=== PATIENT | male | born 1975 | race Caucasian/White ===

== ENCOUNTER 2023-12-07 12:30 | Inpatient (IN) ==
[2023-12-07] MEDS ORDERED: MoRPHine SULFATE 4 MG/ML 1 ML CARP\\VIAL IV PRN (12:45)
[2023-12-07 12:54] LABS: Basophils # (auto) 0.04 K/uL (0.00-0.20); Basophils % (auto) 0.4 %; Eosinophils # (auto) 0.26 K/uL (0.00-0.50); Eosinophils % (auto) 2.9 %; Hematocrit (blood only) 49.8 % (42.0-52.0); Immature Granulocytes # (auto) 0.04 K/uL (0.01-0.20); Immature Granulocytes % (auto) 0.4 %; Mean Corpuscular Hemoglobin 27.5 pg (25.0-34.0); Mean Corpuscular Hgb Conc 34.1 g/dL (32.0-36.0); Mean Corpuscular Volume 80.5 fL (80.0-100.0); Mean Platelet Volume 9.8 fL (9.4-12.4); Monocytes # (auto) 0.79 K/uL (0.11-0.59); Monocytes % (auto) 8.9 %; Neutrophils # (auto) 5.36 K/uL (1.40-6.50); Neutrophils % (auto) 60.4 %; Platelet Count 237 K/uL (130-400); RDW Coefficient of Variation 13.8 % (11.5-14.5); RDW Standard Deviation 39.2 fL (36.4-46.3); Red Blood Count 6.19 M/uL (4.70-6.10); White Blood Count 8.89 K/ul (4.8-10.8)
[2023-12-07] MEDS: dexAMETHasone**PF** 10 MG/ML VIAL IV ONE (12:55)
[2023-12-07] MEDS: LORazepam 1 MG/1 ML SYR ED Inj Use IV STA (12:55)
[2023-12-07] MEDS: SODIUM CHLORIDE 0.9% 500 ML IV STA (12:56)
[2023-12-07] MEDS: KETOROLAC TROMETHAMINE 15 MG/ML VIAL IV STA (12:56)
[2023-12-07] MEDS: ONDANSETRON INJ 2 MG/ML 2 ML VIAL IV STA (12:56)
--- NOTE | 2023-12-07 13:15 | Emergency Department Note ---
Impression & Plan Acute lumbar radiculopathy, Herniated lumbar intervertebral disc ED Provider Note NAME: CORONA BRYANT AGE: 48 SEX: M : 1975 ARRIVES VIA: Ambulance INFORMANT: Patient, ED PROVIDER(S): Alexey Parkinson DO CHIEF COMPLAINT: Back pain HPI: The patient is a 48-year-old male who presented to the emergency department by ambulance for an evaluation of back pain. The patient noticed low back pain which began over the course the last week. He states the pain is starting to become much worse and now seems to radiate to his right leg. He was in our facility yesterday for similar complaints. He had a CAT scan of his lumbar spine. The patient was started on medications but seems to be worsening. He has been seen by chiropractics. He has not been able to get an appointment by his family doctor and they are quite frustrated. Additional history was obtained from his significant other. The patient denies having any specific trauma. He denies having any bowel or bladder incontinence. ROS: See above HPI for pertinent positives & negatives. A total of 10 systems reviewed and were otherwise negative. PAST MEDICAL HISTORY: See Below PAST SURGICAL HISTORY: See Below FAMILY HISTORY: See Below SOCIAL HISTORY: See Below HOME MEDICATIONS: See Below ALLERGIES: See Below VITALS: See Below PHYSICAL EXAMINATION: GENERAL: The patient is awake and alert. He is very anxious and appears to be uncomfortable. EYES: The conjunctivae are clear. The pupils are round and reactive. EARS, NOSE, MOUTH AND THROAT: The nose is without any evidence of any deformity. NECK: The neck is nontender and supple. RESPIRATORY: Normal respiratory effort is noted there is no evidence of wheezing rhonchi or rales CARDIOVASCULAR: Regular rate and rhythm noted there no murmurs rubs or gallops normal S1 normal S2. GASTROINTESTINAL: The abdomen is soft. Abdomen is nontender. BACK: There is significant tenderness to palpation over the lower lumbar spine. Range of motion appears intact but severely painful. Straight leg raise was positive on the right. MUSCULOSKELETAL/EXTREMITIES: There is no evidence of gross deformity full range of motion is noted in the hips and shoulders. SKIN: There is no obvious evidence of any rash. There are no petechiae, pallor or cyanosis noted. NEUROLOGIC: Patient is awake alert and oriented x3 strength is symmetric patellar reflexes are 2+ bilaterally. Great toe raise was symmetric. MEDICAL DECISION MAKING: The patient is a 48-year-old male who presented to the emergency department for an evaluation of back pain. The patient's history and physical exam appear to be consistent with a herniated disc. I discussed patient's laboratory and radiographic studies with him. He was treated with IV pain medication and IV steroids and IV NSAIDs in the emergency department. On reevaluation he was much more comfortable but any ambulation would cause very severe pain. For this reason I discussed his condition with the on-call [facility] hospitalist. They have agreed to evaluate the patient in the emergency department. I also discussed this case with orthopedic spine. They would be available to see the patient tomorrow for routine consultation. Triage Nursing notes reviewed. Prior medical records reviewed Vital Signs: reviewed and remarkable for elevated blood pressure. Differential diagnosis: Musculoskeletal, disc herniation, fracture, metastatic disease, cord compression, discitis, sciatica, cauda equina, infection, aortic disease, renal colic, gastrointestinal, as well as other pathologies. ER treatment provided: See below Diagnostics interpreted by me: ECG: none Cardiac Monitoring: An order was placed for continuous cardiac monitoring. The monitor shows a rate of 97 bpm with sinus rhythm. Laboratory studies: As stated above and show below. Imaging studies: See below. Radiographic imaging was reviewed by myself Consultation(s): I discussed this case with Dr. [facility]ides [facility] I discussed this case with Dr. Hatfield who is on-call for orthopedic spine. Past Med/Surg History Medical History Nocturnal hypoxia Severe obstructive sleep apnea History of migraine Obesity Medial epicondylitis, left elbow Hypertension Surgical History Hx of wisdom tooth extraction Family History Father Myocardial infarction Stroke Denies family history of Ovarian cancer Prostate cancer Breast cancer Colorectal cancer Social History Smoking Status: Never smoker Tobacco Type: Smokeless Tobacco (Dip or Chew) Cigarettes Per Day: 1 can snuff daily; Do You Dip or Chew Tobacco: Yes; Hx Alcohol Use: No Hx Substance Use: No Preferred Language: Ivorian Communication Ability: Effective Visual Impairment: No Limitations Hearing Ability: Normal [place] Skinner Required: No Beliefs That Will Affect Care: None marital status: Current Living Situation: Family current occupational status: employed 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 How many Children do You have: 2 Feels Safe at Home: Yes Childhood Exposure to Second-Hand Smoke: No Diet: regular Diet Comment: regular caffeine: Yes during the past year weight has: remained stable Dental Care, Regularly: No Physical Activity Frequency: Daily Allergies Allergies Allergy/AdvReac Type Severity Reaction Status Date / Time No Known Allergies Allergy Verified 02/03/23 12:06 Home Meds Home Medications Medication Instructions Recorded Confirmed acetaminophen 500 mg tablet 1,500 mg PO Q6H PRN Pain 12/07/23 12/07/23 (Tylenol Extra Strength) naproxen sodium 220 mg tablet 660 mg PO .Q4-6HRS PRN Pain 12/07/23 12/07/23 (Aleve) Previous Rx's Medication Instructions Recorded losartan 100 mg tablet 50 mg (1/2 x 100 mg) PO BID #90 08/07/23 tabs BiPap Machine #1 ea 10/22/23 cyclobenzaprine 10 mg tablet 10 mg PO TID PRN muscle spasm #15 12/01/23 tabs lidocaine 5 % topical patch 1 patch topical DAILY #15 ea 12/01/23 (Lidoderm) Results & Data (ED) Vital Signs Vital Signs - 24 hr 12/07/23 12:38 12/07/23 15:17 12/07/23 15:17 Temperature 36.6 C Temperature Source Oral Pulse Rate 88 Pulse Rate [Finger] 99 H Pulse Rhythm [Finger] Respiratory Rate 22 22 Respiratory Effort / Characteristics Non-Labored Spontaneous Non-Labored Spontaneous Respiratory Depth Normal Normal Respiratory Pattern Regular Regular Blood Pressure 201/138 H Blood Pressure [Right Arm] 186/122 H Blood Pressure Mean 159 Blood Pressure Mean [Right Arm] 143 Blood Pressure Position [Right Arm] Lying Pulse Oximetry 98 96 96 Oxygen Delivery Method Room Air Room Air Room Air Sepsis Recent Fever Within 48 Hours No Sepsis New/Unexplained Change in Mental Status No Sepsis Action Taken by Nursing No Action Required 12/07/23 17:34 Temperature Temperature Source Pulse Rate Pulse Rate [Finger] 97 H Pulse Rhythm [Finger] Regular Respiratory Rate 22 Respiratory Effort / Characteristics Non-Labored Spontaneous Respiratory Depth Normal Respiratory Pattern Regular Blood Pressure Blood Pressure [Right Arm] 187/108 H Blood Pressure Mean Blood Pressure Mean [Right Arm] 134 Blood Pressure Position [Right Arm] Lying Pulse Oximetry 95 Oxygen Delivery Method Room Air Sepsis Recent Fever Within 48 Hours Sepsis New/Unexplained Change in Mental Status Sepsis Action Taken by Half-Way Medications Current Medication List: was personally reviewed by me Laboratory Data Attestation: I reviewed the patient's lab results. 12/07/23 12:40 12/07/23 12:40 Lab Results 12/07/23 Range/Units 12:40 WBC 8.89 (4.8-10.8) K/ul RBC 6.19 H (4.70-6.10) M/uL Hgb 17.0 (14.0-18.0) g/dl Hct 49.8 (42.0-52.0) % MCV 80.5 (80.0-100.0) fL MCH 27.5 (25.0-34.0) pg MCHC 34.1 (32.0-36.0) g/dL RDW Std Deviation 39.2 (36.4-46.3) fL RDW Coeff of Naheed 13.8 (11.5-14.5) % Plt Count 237 (130-400) K/uL MPV 9.8 (9.4-12.4) fL Immature Gran % (Auto) 0.4 % Neut % (Auto) 60.4 % Lymph % (Auto) 27.0 % Bath % (Auto) 8.9 % Eos % (Auto) 2.9 % Baso % (Auto) 0.4 % Neut # (Auto) 5.36 (1.40-6.50) K/uL Lymph # (Auto) 2.40 (1.20-3.40) K/uL Bath # (Auto) 0.79 H (0.11-0.59) K/uL Eos # (Auto) 0.26 (0.00-0.50) K/uL Baso # (Auto) 0.04 (0.00-0.20) K/uL Immature Gran # (Auto) 0.04 (0.01-0.20) K/uL Sodium 141 (136-145) mmol/L Potassium 4.2 (3.5-5.1) mmol/L Chloride 108 H (98-107) mmol/L Carbon Dioxide 26 (21-32) mmol/L Anion Gap 7 (3-11) BUN 25 H (6-23) mg/dl Creatinine 1.20 (0.6-1.4) mg/dl Est Cr Clr Drug Dosing 95.0 ml/min Est GFR ( Amer) 83.0 ml/min Est GFR (Non-Af Amer) 71.6 ml/min BUN/Creatinine Ratio 20.8 H (10-20) Glucose 90 (70-99(Fasting)) mg/dl Calcium 9.2 (8.6-10.3) mg/dl Total Bilirubin 0.9 (0.2-1.0) mg/dl AST 24 (13-39) U/L ALT 31 (7-52) U/L Alkaline Phosphatase 69 (34-104) U/L Total Protein 7.1 (6.0-8.3) gm/dl Albumin 4.2 (3.4-5.0) gm/dl Globulin 2.9 (2.5-4.0) gm/dl Albumin/Globulin Ratio 1.4 (0.9-2) Lipase 20 (11-82) U/L Administered Medications Discontinued Medications Dexamethasone Sodium Phosphate (DexamethasonePf 10 Mg/Ml Vial) 10 mg IV NOW ONE Stop: 12/07/23 12:46 Last Admin: 12/07/23 12:55 Dose: 10 mg Documented By: CRIS Sodium Chloride (Nss) 500 mls @ 999 mls/hr IV .Q31M STA Stop: 12/07/23 13:15 Last Infusion: 12/07/23 15:20 Dose: Infused Documented By: Admin: 12/07/23 12:56 Dose: 999 mls/hr Documented By: CRIS Ketorolac Tromethamine (Ketorolac Tromethamine 15 Mg/Ml Vial) 10 mg IV NOW STA Stop: 12/07/23 12:46 Last Admin: 12/07/23 12:56 Dose: Not Given Documented By: CRIS Lorazepam (Lorazepam 1 Mg/1 Ml Syr Ed Inj Use) 0.5 mg IV ONE STA Stop: 12/07/23 12:46 Last Admin: 12/07/23 12:55 Dose: 0.5 mg Documented By: CRIS Ondansetron HCl (Ondansetron Inj 2 Mg/Ml 2 Ml Vial) 4 mg IV NOW STA Stop: 12/07/23 12:46 Last Admin: 12/07/23 12:56 Dose: Not Given Documented By: CRIS Imaging Data Attestation: I personally reviewed and interpreted this imaging study as follows: My Impression: MRI of the lumbar spine was obtained in the emergency department. There does appear to be herniated disc on the right side and the L4-L5 interspace. Final report below. Radiologist's Impression: Lumbar Spine MRI 12/07/23 12:45 MR lumbar spine wo con CLINICAL HISTORY: right sided radicular pain TECHNIQUE: Multiplanar sequences through the lumbar spine were obtained, without intravenous contrast. Comparison: Comparison is made to CT lumbar spine 12/01/2023 FINDINGS: The alignment is anatomical. L1-L2: No significant abnormality. L2-L3: No significant abnormality. L3-L4: No significant abnormality. L4-L5: Right sided disc extrusion is seen. This measures approximately 7 mm in diameter. There is impingement on the exiting L5 nerve root. L5-S1: No significant abnormality. The spinal ligaments are intact, without evidence of disruption or abnormal signal intensity. The spinal cord is normal in signal intensity and there is no evidence of cord contusion. There is no evidence of an extradural, intradural, extramedullary or intramedullary lesion. Visualized soft tissues are normal. IMPRESSION: Right disc extrusion at L4-L5 with impingement upon the right-sided nerve roots. ACT 112: Negative or not required by law. Electronically signed by: Ravi Saenz M.D. 12/07/2023 2:50 PM Orbit X-Ray 12/07/23 12:45 XR orbits for MRI CLINICAL HISTORY: Screening for foreign body for MRI TECHNIQUE: AP and lateral views of the orbits were submitted for interpretation. Comparison: None available at the time of this dictation. FINDINGS/IMPRESSION: There are no radiopaque metallic foreign bodies. The osseous structures are unremarkable. Patient is cleared for MRI. ACT 112: Negative or not required by law. Electronically signed by: Ravi Saenz M.D. 12/07/2023 1:30 PM Discharge Plan Visit Data Chief Complaint: Back Injury/Pain Stated Complaint: BACK PAIN ED Provider: Alexey Parkinson Discharge Problem: Acute lumbar radiculopathy, Herniated lumbar intervertebral disc Patient Disposition: Being Evaluated by Hospitalist Forms Stand Alone Forms: [facility] Prescriptions Prescriptions: No Action (DME) BiPap Machine Misc See Rx Instructions .Route Qty: 1 0RF Rx Instructions: Settings- losartan 100 mg tablet 50 mg PO BID Qty: 90 2RF cyclobenzaprine 10 mg tablet 10 mg PO TID PRN (Reason: muscle spasm) Qty: 15 0RF lidocaine [Lidoderm] 5 % adhesive patch,medicated 1 patch topical DAILY Qty: 15 0RF Rx Instructions: leave on most painful area for up to 12 hrs acetaminophen [Tylenol Extra Strength] 500 mg Tablet 1,500 mg PO Q6H PRN (Reason: Pain) naproxen sodium [Aleve] 220 mg Tablet 660 mg PO .Q4-6HRS PRN (Reason: Pain) Referrals Referrals: Smooth Allen CRNP [Primary Care Provider] -
[2023-12-07 13:19] LABS: Albumin Globulin Ratio 1.4 (0.9-2); Albumin Level 4.2 gm/dl (3.4-5.0); BUN Creatinine Ratio 20.8 (10-20); Bilirubin,Total 0.9 mg/dl (0.2-1.0); Calcium 9.2 mg/dl (8.6-10.3); Est GFR (Non-African American) 71.6 ml/min; Globulin 2.9 gm/dl (2.5-4.0); Potassium 4.2 mmol/L (3.5-5.1); Total Protein 7.1 gm/dl (6.0-8.3)
--- NOTE | 2023-12-07 13:32 | XRay Report ---
XR orbits for MRI CLINICAL HISTORY: Screening for foreign body for MRI TECHNIQUE: AP and lateral views of the orbits were submitted for interpretation. Comparison: None available at the time of this dictation. FINDINGS/IMPRESSION: There are no radiopaque metallic foreign bodies. The osseous structures are unremarkable. Patient is cleared for MRI. ACT 112: Negative or not required by law. Electronically signed by: Ravi Saenz M.D. 12/07/2023 1:30 PM
--- NOTE | 2023-12-07 14:52 | Magnetic Resonance Report ---
MR lumbar spine wo con CLINICAL HISTORY: right sided radicular pain TECHNIQUE: Multiplanar sequences through the lumbar spine were obtained, without intravenous contrast . Comparison: Comparison is made to CT lumbar spine 12/01/2023 FINDINGS: The alignment is anatomical. L1-L2: No significant abnormality. L2-L3: No significant abnormality. L3-L4: No significant abnormality. L4-L5: Right sided disc extrusion is seen. This measures approximately 7 mm in diameter. There is imp ingement on the exiting L5 nerve root. L5-S1: No significant abnormality. The spinal ligaments are intact, without evidence of disruption or abnormal signal intensity. The spi nal cord is normal in signal intensity and there is no evidence of cord contusion. There is no eviden ce of an extradural, intradural, extramedullary or intramedullary lesion. Visualized soft tissues are normal. IMPRESSION: Right disc extrusion at L4-L5 with impingement upon the right-sided nerve roots. ACT 112: Negative or not required by law. Electronically signed by: Ravi Saenz M.D. 12/07/2023 2:50 PM
--- NOTE | 2023-12-07 16:43 | History & Physical Report ---
Date of Service December 07, 2023 Assessment & Plan (1) Acute lumbar radiculopathy: Plan: Sharp lower right back pain with radiation down the right leg that started on 11/23 Potential exacerbation by chiropractor on Monday 11/27 Came in on 12/06 as pain was excruciating and he couldn't walk or sit up Lumbar spine MRI on 12/06 revealed right disc extrusion at L4-L5 Ortho-spine consulted, appreciate their support Multimodal pain regimen: Tylenol as needed for pain Dilaudid IV q2h as needed for breakthrough pain Cyclobenzaprine as needed for muscle spasms Heat application daily with K-pad as needed Zofran as needed for nausea/vomiting A.m. CBC, BMP, mag (2) Severe obstructive sleep apnea: Plan: CPAP HS (3) Tobacco chew use: Plan: Nicotine patch daily as needed (4) Hypertension: Plan: Continue losartan daily Plan Disposition: Admit to [facility] Full code Regular diet VTE PPx: History of Present Illness Chief Complaint: Back injury/pain Primary Care Provider: AMITA Prasadfrancis is a 48-year-old male with PMH of HTN, severe obstructive sleep apnea, and migraines. He presented via EMS for right lower back pain that shoots down his right leg x 2 weeks. 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 He reports he did not do anything exceedingly strenuous, or anything abnormal for when he works on [employer]. He then went to see a chiropractor that Friday on 11/27, and w lionel up the following morning with even worse back pain; could not walk, could not stand, and all movements hurt. Back pain is located in his lower right back with radiation down the leg into the feet. No radiation of the back or on the left side. He describes it as a sharp stabbing pain, and rates it 10/10 at its worst; 2/10 at present without movements. Movement exacerbates the pain. Laying still, and bending his right leg helps to alleviate the pain. Associated symptoms include intermittent numbness and tingling in the right leg. Patient has been rotating Tylenol and Aleve every 5-6h, but this is not take with the pain. He did try menthol patch at home which helped. When he came to the ED on 11/30, he was given lidocaine patches and cyclobenzaprine, but neither these truly helped; cyclobenzaprine made him feel "groggy". No prior surgeries, except on his left leg when he was 11 years old. He does have a history of "2 bulged disks", which she sustained in his 20s when he was lifting something heavy from a truck. Patient only takes losartan on a daily basis, and reports that he did take it today. He also uses a CPAP at night for sleep apnea, but has not been using it recently because his back hurts too much. Last BM yesterday. Patient denies smoking, alcohol use, and recreational drug use. He does chew tobacco. Patient is hypertensive at 186/122 at time of admission. ED course: Lorazepam 0.5 mg IV NSS 500 mL IV Dexamethasone 10 mg IV ROS: Patient endorses R lower back pain w/ rad down right leg into foot, and intermittent numbness/tingling in the right leg. Patient denies fever, chills, night-sweats, GALVIN, dizziness, lightheadedness, changes in vision, chest pain, chest pressure, chest palpitations, SOB, cough, pleuritic CP, abdominal pain, N/V/D, change in urinary/bowel habits, saddle anesthesia, burning with urination, or blood in the urine/stool. Allergies Allergy/AdvReac Type Severity Reaction Status Date / Time No Known Allergies Allergy Verified 02/03/23 12:06 Home Medications Medication Instructions Recorded Confirmed Type losartan 100 mg tablet 50 mg (1/2 x 100 mg) PO BID #90 08/07/23 12/07/23 Rx tabs BiPap Machine #1 ea 10/22/23 Rx cyclobenzaprine 10 mg tablet 10 mg PO TID PRN muscle spasm #15 12/01/23 12/07/23 Rx tabs lidocaine 5 % topical patch 1 patch topical DAILY #15 ea 12/01/23 12/07/23 Rx (Lidoderm) acetaminophen 500 mg tablet 1,500 mg PO Q6H PRN Pain 12/07/23 12/07/23 History (Tylenol Extra Strength) naproxen sodium 220 mg tablet 660 mg PO .Q4-6HRS PRN Pain 12/07/23 12/07/23 History (Aleve) Past Med/Surg History Medical History Nocturnal hypoxia Severe obstructive sleep apnea History of migraine Obesity Medial epicondylitis, left elbow Hypertension Surgical History Hx of wisdom tooth extraction Family History Father Myocardial infarction Stroke Denies family history of Ovarian cancer Prostate cancer Breast cancer Colorectal cancer Social History Smoking Status: Never smoker Tobacco Type: Smokeless Tobacco (Dip or Chew) Cigarettes Per Day: 1 can snuff daily; Do You Dip or Chew Tobacco: Yes; Hx Alcohol Use: No Hx Substance Use: No Preferred Language: Arabic Communication Ability: Effective Visual Impairment: No Limitations Hearing Ability: Normal 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 Beliefs That Will Affect Care: None marital status: Current Living Situation: Family current occupational status: employed 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 How many Children do You have: 2 Feels Safe at Home: Yes Safety Concerns: Feels Safe At This Time Childhood Exposure to Second-Hand Smoke: No Diet: regular Diet Comment: regular caffeine: Yes during the past year weight has: remained stable Dental Care, Regularly: No Physical Activity Frequency: Daily Review of Systems Review of Systems: See HPI above Physical Exam Physical Exam: General: Moderate physical distress; non-toxic appearing; well-nourished; cooperative; SpO2 95% on RA HEENT: normocephalic, atraumatic; no scleral icterus; PERRLA; moist mucus membrane; vision and hearing grossly intact Neck: supple; no lymphadenopathy; trachea midline Skin: warm, dry without signs of tenting; no cyanosis; no rashes, bruising, lesions, or erythema noted CV: chest wall NTP; RRR; S1/S2 normal; no murmurs/rubs/gallops; pulses intact and symmetric at radial, DP, and PT Lungs: no acute respiratory distress; symmetrical chest wall expansion; clear breath sounds across all lung allison w/o adventitious sounds; no wheezing ABD: Soft, NTP; BS present; no rebound/guarding; no distention MSK: no tics or fasciculations; no edema noted in the LEs b/l, nonerythematous Back: Upper spine NTP; left lower back NTP; right lower back TTP; superficial rash and erythema on the right lower back; (+) right straight leg lift Neuro: A&Ox3; normal mood and affect; fluent speech; no focal deficits; sensation grossly intact in the LEs b/l assessed via light touch at the feet and the legs Results & Data Results & Data Vital Signs (Past 12 Hours) Vital Signs Temp Pulse Pulse Resp BP BP Pulse Ox 12/07/23 15:17 99 H 22 186/122 H 96 12/07/23 15:17 96 12/07/23 12:38 36.6 C 88 22 201/138 H 98 O2 Del Method 12/07/23 15:17 Room Air 12/07/23 15:17 Room Air 12/07/23 12:38 Room Air Laboratory Results Abnormal lab results 12/07/23 Range/Units 12:40 RBC 6.19 H (4.70-6.10) M/uL Greenlee # (Auto) 0.79 H (0.11-0.59) K/uL Chloride 108 H (98-107) mmol/L BUN 25 H (6-23) mg/dl BUN/Creatinine Ratio 20.8 H (10-20) Diagnostic Findings Lumbar Spine MRI 12/07/23 12:45 MR lumbar spine wo con CLINICAL HISTORY: right sided radicular pain TECHNIQUE: Multiplanar sequences through the lumbar spine were obtained, without intravenous contrast. Comparison: Comparison is made to CT lumbar spine 12/01/2023 FINDINGS: The alignment is anatomical. L1-L2: No significant abnormality. L2-L3: No significant abnormality. L3-L4: No significant abnormality. L4-L5: Right sided disc extrusion is seen. This measures approximately 7 mm in diameter. There is impingement on the exiting L5 nerve root. L5-S1: No significant abnormality. The spinal ligaments are intact, without evidence of disruption or abnormal signal intensity. The spinal cord is normal in signal intensity and there is no evidence of cord contusion. There is no evidence of an extradural, intradural, extramedullary or intramedullary lesion. Visualized soft tissues are normal. IMPRESSION: Right disc extrusion at L4-L5 with impingement upon the right-sided nerve roots. ACT 112: Negative or not required by law. Electronically signed by: Ravi Saenz M.D. 12/07/2023 2:50 PM Orbit X-Ray 12/07/23 12:45 XR orbits for MRI CLINICAL HISTORY: Screening for foreign body for MRI TECHNIQUE: AP and lateral views of the orbits were submitted for interpretation. Comparison: None available at the time of this dictation. FINDINGS/IMPRESSION: There are no radiopaque metallic foreign bodies. The osseous structures are unremarkable. Patient is cleared for MRI. ACT 112: Negative or not required by law. Electronically signed by: Ravi Saenz M.D. 12/07/2023 1:30 PM Code Status & VTE Plan Code Status Full code VTE Prophylaxis Plan VTE Prophylaxis will be ordered: Yes Supervising Physician Co-Signing Physician Notes Patient seen and examined, chart reviewed, case discussed with Cruz Christopher PA-C and I agree with the assessment and plan as above except as otherwise noted Labs and images reviewed 48-year-old male who has developed severe back pain limiting movement and walking which starts in his lower right back and radiates down his leg. No incontinence or retention. No saddle anesthesia. No weakness, pain limitation is present. Lumbar spine MRI shows right disc extrusion at L4-L5 with impingement on the right-sided nerve roots which coincides with the symptoms. Case was reviewed with orthospine while patient was in the ER. No emergent indication for operative intervention, they will see patient tomorrow in consultation. Admitted to medicine with multimodal pain control and steroid treatment. PG Care Time/CCT Total # of Minutes Spent Total Time Spent with Patient: Total time spent is greater than 50% in coordination of care (as documented) at patient's floor/unit and/or counseling patient: C[place] [address] INT INP/OBS CARE 2/55MIN Patient Type Established History Comprehensive Exam Comprehensive Medical Decision Making Moderate Complexity Diagnoses Acute lumbar radiculopathy M54.16 Severe obstructive sleep apnea G47.33 Tobacco chew use Z72.0 Hypertension I10
[2023-12-07 18:01] LABS: Appearance Urine Clear (Clear); Bacteria Urine Automated None Seen (None Seen); Bilirubin Urine Negative (Negative); Blood Urine Negative (Negative); Cast Urine Automated 0-2 /lpf (0-2); Color Urine Yellow; Epithelial Cell Urine Auto 0-2 /hpf (0-2); Glucose Urine UA Negative (Negative); Ketones Urine 1+ (Negative); Leukocyte Esterase Urine 2+ (Negative); Nitrite Urine Negative (Negative); Protein Urine Negative (Negative); Specific Gravity Urine 1.019 (1.000-1.030); Urobilinogen Urine Negative (Negative); WBC Urine Automated >50 /hpf (0-5)
[2023-12-07] MEDS ORDERED: HYDROmorphone INJ 0.5 MG/0.5 ML SYR IV PRN (19:12)
[2023-12-07] MEDS ORDERED: ONDANSETRON INJ 2 MG/ML 2 ML VIAL IV PRN (19:12)
[2023-12-07] MEDS ORDERED: ACETAMINOPHEN 325 MG TAB PO PRN (19:12)
[2023-12-07] MEDS ORDERED: MELATONIN 3 MG TAB PO PRN (19:12)
[2023-12-07] MEDS ORDERED: CYCLOBENZAPRINE HCL 10 MG TAB PO PRN (19:12)
[2023-12-07] MEDS: LOSARTAN POTASSIUM 50 MG TAB PO SCH (20:28)
[2023-12-08] MEDS: HYDROmorphone INJ 1 MG/ML SYRINGE IV PRN ×2 (00:48→18:42)
[2023-12-08 07:54] LABS: Basophils # (auto) 0.02 K/uL (0.00-0.20); Basophils % (auto) 0.2 %; Eosinophils # (auto) 0.01 K/uL (0.00-0.50); Eosinophils % (auto) 0.1 %; Hematocrit (blood only) 46.9 % (42.0-52.0); Hemoglobin 15.8 g/dl (14.0-18.0); Immature Granulocytes # (auto) 0.07 K/uL (0.01-0.20); Immature Granulocytes % (auto) 0.6 %; Lymphocytes # (auto) 1.94 K/uL (1.20-3.40); Lymphocytes % (auto) 15.8 %; Mean Corpuscular Hemoglobin 26.8 pg (25.0-34.0); Mean Corpuscular Hgb Conc 33.7 g/dL (32.0-36.0); Mean Corpuscular Volume 79.6 fL (80.0-100.0); Mean Platelet Volume 9.9 fL (9.4-12.4); Monocytes # (auto) 0.91 K/uL (0.11-0.59); Monocytes % (auto) 7.4 %; Neutrophils # (auto) 9.29 K/uL (1.40-6.50); Neutrophils % (auto) 75.9 %; Platelet Count 279 K/uL (130-400); RDW Coefficient of Variation 13.6 % (11.5-14.5); RDW Standard Deviation 39.2 fL (36.4-46.3); Red Blood Count 5.89 M/uL (4.70-6.10); White Blood Count 12.24 K/ul (4.8-10.8)
[2023-12-08] MEDS: NICOTINE 21 MG/24 HR TDSY TD SCH (08:17)
--- NOTE | 2023-12-08 08:36 | Orthopedic Consultation ---
Date of Service December 08, 2023 Assessment & Plan (1) Lumbar disc herniation with radiculopathy: History of Present Illness Reason for Consultation: Right leg radiculopathy Requesting Physician: . Attending Physician: Jose Mitchell MD 48-year-old male who reports that he started developing symptoms beginning on November 27. 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 He saw an urgent care over the weekend following on the , was given some steroid medications and this helped him manage through the following week but it then slowly worsened with him returning to the emergency room on December 06 with a combination of pain in his right lumbosacral spine going into the buttock, posterior thigh as he reports it, lateral aspect of the lower leg and directing towards the right foot. He states that the pain is severe if he tries to move around, he has not noticed any motor weakness. It has not responded well to any medications including steroids. Exam reveals the patient to be lying in bed, his right hip is flexed, patient has intact strength in both lower extremities, positive straight leg raise on the right, intact EHL as stated on the right and pain indicated in the right lumbosacral junction. Review of MRI images from December 07, 2023 at [facility], this my separate interpretation, this reveals the patient's main findings to be at L4-5 where there is a disc extrusion in the lateral recess on the right side with significant compression on the passing L5 nerve root. Other than that there is just some limited degenerative changes with some loss of signal intensity involving the lower 3 levels, no significant bulges no significant canal or foraminal stenosis and limited facet changes. Impression: Right L4-5 disc extrusion with compression on the L5 nerve root. Plan: At this time I reviewed the findings of the MRI with the patient explaining that the disc protrusion he has is not very large but it is in the right location to affect the L5 nerve root. I related to him that I would recommend at least a trial of an epidural injection to see if this provides any relief of his symptoms as he does not have any motor weakness, primarily pain as the main complaint. I did relate that operative intervention could be considered but it is a relatively small fragment, I think he has a very reasonable chance with an extruded disc that this could be addressed with the steroid injection and then potentially resorb with time. I related I will put in for the pain management consultation and get their opinion, and see what is achieved with their efforts, he was in agreement with this plan. Allergies Allergy/AdvReac Type Severity Reaction Status Date / Time No Known Allergies Allergy Verified 02/03/23 12:06 Home Medications Medication Instructions Recorded Confirmed Type losartan 100 mg tablet 50 mg (1/2 x 100 mg) PO BID #90 08/07/23 12/07/23 Rx tabs BiPap Machine #1 ea 10/22/23 Rx cyclobenzaprine 10 mg tablet 10 mg PO TID PRN muscle spasm #15 12/01/23 12/07/23 Rx tabs lidocaine 5 % topical patch 1 patch topical DAILY #15 ea 12/01/23 12/07/23 Rx (Lidoderm) acetaminophen 500 mg tablet 1,500 mg PO Q6H PRN Pain 12/07/23 12/07/23 History (Tylenol Extra Strength) naproxen sodium 220 mg tablet 660 mg PO .Q4-6HRS PRN Pain 12/07/23 12/07/23 History (Aleve) metoprolol tartrate 50 mg tablet 50 mg PO BID #60 tabs 12/11/23 Rx tramadol 50 mg tablet 50 mg PO Q6H PRN pain #20 tabs 12/11/23 Rx Past Med/Surg History Surgical History Hx of wisdom tooth extraction Family History Father Myocardial infarction Stroke Denies family history of Ovarian cancer Prostate cancer Breast cancer Colorectal cancer Social History Smoking Status: Never smoker Tobacco Type: Smokeless Tobacco (Dip or Chew) Cigarettes Per Day: 1 can snuff daily; Do You Dip or Chew Tobacco: Yes; Hx Alcohol Use: No Hx Substance Use: No Preferred Language: Sami Communication Ability: Effective Visual Impairment: No Limitations Hearing Ability: Normal Granulator Required: No Beliefs That Will Affect Care: None marital status: Current Living Situation: Family current occupational status: employed 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 Physical Exam . Results & Data Results & Data Laboratory Results . Diagnostic Findings . PG Care Time/CCT Total # of Minutes Spent Total Time Spent with Patient: Total time spent is greater than 50% in coordination of care (as documented) at patient's floor/unit and/or counseling patient: Coding Level of Care Code 76535 IN/OBS CONSULT LVL 3,45M Diagnoses Lumbar disc herniation with radiculopathy M51.16
[2023-12-08 08:46] LABS: BUN Creatinine Ratio 21.2 (10-20); Calcium 8.9 mg/dl (8.6-10.3); Creatinine Clr Calc Pharmacy 96.7 ml/min; Est GFR (African American) 84.7 ml/min; Potassium 3.9 mmol/L (3.5-5.1)
[2023-12-08] MEDS ORDERED: methylPREDNISolone 10 mg/mL (For Ped Dose < 7mg) IV SCH (09:30)
--- NOTE | 2023-12-08 10:17 | Pain Management Consultation ---
Date of Consultation December 08, 2023 Assessment & Plan (1) Lumbar disc herniation with radiculopathy: (2) Obesity: Obesity classification: adult class 3 (BMI >= 40) Serious obesity comorbidity presence: without serious comorbidity Body mass index: BMI 45.0-49.9 (3) Lumbar paraspinal muscle spasm: Plan 1. Recommend right L4-5 transforaminal epidural steroid injection at this time. We discussed the patient's MRI, current symptoms, and expectations, risk, benefits of epidural steroid injection. This will be scheduled for tomorrow in the operating room as he is not able to be discharged at this time. 2. Recommend initiation of gabapentin 100 mg p.o. 3 times daily titrating up as tolerated. 3. Continue Lidoderm patches as desired. 4. Recommend PT as outpatient. 5. Will plan to see him 2 to 3 weeks postinjection as an outpatient at the [facility] pain management office. 6. Thank you for this consultation we will continue to follow with him during this hospitalization. 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 He reports that in his 20s he lifted a box that was too heavy and has known about 2 lumbar disc bulges since that time. He reports intermittently he has had difficulty with predominantly axial low back pain but was always able to" muscle through it". He reports however this incident he was not able to do so and presented via EMS on 12/07/2023 with 10 out of 10 right-sided L4-S1 and L5 radicular symptoms to the level of the distal gastroc. He denies bowel or bladder incontinence or motor weakness. He denies any falls, fever, chills. He reports in the last 2-week he has tried Tylenol, Flexeril, lidocaine patches, NSAIDs, wound care physician, rest all without relief. IV steroids have minimized his pain to a degree during this hospitalization but he reports he is still unable to walk with enough pain control to be discharged. No prior history of interventional pain management or surgery. Pain is sharp shooting stabbing range between 2-10 out of 10 currently 8 out of 10. Pain Assessment Full Body Front + Back: 2 1. 2. 3. Allergies Allergy/AdvReac Type Severity Reaction Status Date / Time No Known Allergies Allergy Verified 02/03/23 12:06 Home Medications Medication Instructions Recorded Confirmed Type losartan 100 mg tablet 50 mg (1/2 x 100 mg) PO BID #90 08/07/23 12/07/23 Rx tabs BiPap Machine #1 ea 10/22/23 Rx cyclobenzaprine 10 mg tablet 10 mg PO TID PRN muscle spasm #15 12/01/23 12/07/23 Rx tabs lidocaine 5 % topical patch 1 patch topical DAILY #15 ea 12/01/23 12/07/23 Rx (Lidoderm) acetaminophen 500 mg tablet 1,500 mg PO Q6H PRN Pain 12/07/23 12/07/23 History (Tylenol Extra Strength) naproxen sodium 220 mg tablet 660 mg PO .Q4-6HRS PRN Pain 12/07/23 12/07/23 History (Aleve) Patient History Medical History (Updated 12/08/23 @ 10:22 by Jacey Lo DO) 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 Tobacco chew use Lumbar paraspinal muscle spasm Nocturnal hypoxia Severe obstructive sleep apnea History of migraine Obesity Medial epicondylitis, left elbow Hypertension Surgical History Hx of wisdom tooth extraction Family History Father Myocardial infarction Stroke Denies family history of Ovarian cancer Prostate cancer Breast cancer Colorectal cancer Social History Smoking Status: Never smoker Tobacco Type: Smokeless Tobacco (Dip or Chew) Cigarettes Per Day: 1 can snuff daily; Do You Dip or Chew Tobacco: Yes; Hx Alcohol Use: No Hx Substance Use: No Preferred Language: Zambian Communication Ability: Effective Visual Impairment: No Limitations Hearing Ability: Normal Echocardiography Tech Required: No Beliefs That Will Affect Care: None marital status: Current Living Situation: Family current occupational status: employed 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 Recent memory appears grossly intact Eyes: Pupils are equally round and reactive to light with normal size pupils, eyelids appear normal Ear, nose, mouth, and throat: Moist nasal and oral membranes, lips and tongues appear normal, no external ear abnormalities are noted Neck: The trachea is midline without deviation and no thyromegaly is noted Respiratory: Normal respiratory effort without distress, no audible wheezes or rhonchi CV: Normal S1 and S2, warm distal extremities with 2+ dorsalis pedis pulses bilaterally Chest: Deferred GI/abdomen: Nontender protuberant Musculoskeletal: Head is normocephalic and atraumatic, gait not observed but patient is able to logroll in bed with mild difficulty Cervical: Lordotic curve: Normal Range of motion is normal with extension, flexion, side-bending, rotation Strength: Strength is grossly equal bilaterally with 5 out of 5 strength in all planes Lumbar: Lordotic curve: Normal Range of motion is decreased in all planes Tenderness: Exquisitely tender over the axial midline L4-S1 left equal to right Facet provocation: Marginally positive bilaterally Straight leg raise: Negative on the left positive on the right worse with Achilles stretch Step-off injuries: None Strength: Strength is equal bilaterally with 5 out of 5 strength in all planes Sensation of lower extremities: Intact bilaterally Deep tendon reflexes: Rated at 2+ in bilateral L4 and S1 Myofascial spasm: Moderate lumbar spasm. No discrete trigger points noted Greater trochanters: Nontender bilaterally Sacroiliac joints: Nontender bilaterally Pathologic reflexes noted: None Skin: No rashes, lesions, ulcers, or induration noted Neuro: No nystagmus noted, the tongue is midline, the patient is able to rotate their head bilaterally : Deferred Results (Pain Clinic) Diagnostic Review MRI: non enhanced, reports reviewed, images reviewed and findings discussed with patient MRI Findings: 12/07/23 MR lumbar spine wo con CLINICAL HISTORY: right sided radicular pain TECHNIQUE: Multiplanar sequences through the lumbar spine were obtained, without intravenous contrast. Comparison: Comparison is made to CT lumbar spine 12/01/2023 FINDINGS: The alignment is anatomical. L1-L2: No significant abnormality. L2-L3: No significant abnormality. L3-L4: No significant abnormality. L4-L5: Right sided disc extrusion is seen. This measures approximately 7 mm in diameter. There is impingement on the exiting L5 nerve root. L5-S1: No significant abnormality. The spinal ligaments are intact, without evidence of disruption or abnormal signal intensity. The spinal cord is normal in signal intensity and there is no evidence of cord contusion. There is no evidence of an extradural, intradural, extramedullary or intramedullary lesion. Visualized soft tissues are normal. IMPRESSION: Right disc extrusion at L4-L5 with impingement upon the right-sided nerve roots. Opioid Risk Assessment Opioid Risk Assessment: risk assessment performed and no issues identified
[2023-12-08] MEDS: methylPREDNISolone 60 MG in SYRINGE 0 ML IV SCH (10:27)
--- NOTE | 2023-12-08 12:13 | Hospitalist Progress Note ---
Date of Service December 08, 2023 Assessment & Plan (1) Acute lumbar radiculopathy: Plan: Involving right leg due to L4-L5 HNP. Pain management consultation appreciated. He will undergo injection tomorrow, December 08. Orthopedic spine consultation with Dr. Liang Gomez is pending. Continue IV Solu-Medrol along with pain control measures. (2) Severe obstructive sleep apnea: Plan: CPAP HS. stable. (3) Tobacco chew use: Plan: Nicotine patch daily as needed (4) Hypertension: Plan: Continue losartan daily. Metoprolol added for better heart rate and blood pressure control Plan Hopeful discharge to home within the next 48 to 72 hours. Admission and Anticipated Discharge Date Admission Date: December 07, 2023 Subjective Alert and oriented. Metoprolol started for elevated heart rate and elevated blood pressure. He was seen by pain management and will undergo lumbar injection tomorrow, December 08. He and his have requested Dr. Gomez for orthopedic spine consultation which is pending. Continue parenteral Solu-Medrol therapy and pain control measures. Review of Systems 2 Review of Systems: Constitutional-no fever or chills ENT-no blurred vision, no double vision, no epistaxis, no sore throat Respiratory-no cough, no wheezing, no shortness of breath Cardiac-no palpitations, no chest pain, no syncope GI-no nausea, vomiting, diarrhea, melena, hematochezia -no urinary retention, no urinary incontinence, no dysuria, no hematuria Musculoskeletal-lumbar pain with right leg lumbar radiculopathy symptoms . No joint pain, no muscle tenderness Skin-no bruising, no rashes, no pruritus Neuro-right leg lumbar radiculopathy symptoms. Psych-no depression, no anxiety Physical Exam 2 Physical Exam: General-alert and oriented x3, no fever, no chills HEENT-head atraumatic and normocephalic, pupils equal and reactive to light, extraocular muscles intact Neck-no lymphadenopathy or thyromegaly, trachea midline Chest-clear to auscultation. No rales, wheezing or rhonchi Cardiac-regular rate and rhythm, normal S1 and S2 Abdomen-normal bowel sounds, no hepatosplenomegaly Extremities-no cyanosis, clubbing, or edema. Limited range of motion lumbar spine due to pain Neuro-cranial nerves II through XII intact, motor and sensory function within normal limits, strength symmetrical, no focal deficits. Right lower extremity lumbar radiculopathy symptoms Psych-normal affect, normal mood Results & Data Results & Data Vital Signs (Past 12 Hours) Vital Signs Temp Pulse Resp BP Pulse Ox O2 Del Method 12/08/23 08:10 Room Air 12/08/23 07:53 36.6 C 96 H 16 179/134 H 96 Room Air Laboratory Results 12/08/23 06:55 12/08/23 06:55 PG Care Time/CCT Total # of Minutes Spent Total Time Spent with Patient: Total time spent is greater than 50% in coordination of care (as documented) at patient's floor/unit and/or counseling patient: Coding Level of Care Code 33835 SUB INP/OBS CARE 3/50MIN Diagnoses Acute lumbar radiculopathy M54.16 Severe obstructive sleep apnea G47.33 Tobacco chew use Z72.0 Hypertension I10
[2023-12-08] MEDS: METOPROLOL TARTRATE 50 MG TAB PO STA (12:54)
--- NOTE | 2023-12-08 15:19 | Electrocardiogram Report ---
Test Reason : Blood Pressure : / mmHG Vent. Rate : 102 BPM Atrial Rate : 102 BPM P-R Int : 184 ms QRS Dur : 092 ms QT Int : 350 ms P-R-T Axes : 062 -30 060 degrees QTc Int : 456 ms Sinus tachycardia Left axis deviation Abnormal ECG No previous ECGs available Confirmed by Phu Parisi ([id number]) on 12/08/2023 3:18:58 PM Referred By: REFERRED SELF Confirmed By:Jason Parisi
[2023-12-08] MEDS: MoRPHine SULFATE 2 MG/ML CARP IV PRN (16:31)
[2023-12-08] MEDS: METOPROLOL TARTRATE 50 MG TAB PO SCH (20:39)
[2023-12-09 07:27] LABS: Basophils # (auto) 0.01 K/uL (0.00-0.20); Basophils % (auto) 0.1 %; Hemoglobin 16.5 g/dl (14.0-18.0); Immature Granulocytes # (auto) 0.36 K/uL (0.01-0.20); Immature Granulocytes % (auto) 2.3 %; Lymphocytes # (auto) 1.54 K/uL (1.20-3.40); Lymphocytes % (auto) 9.9 %; Mean Corpuscular Hemoglobin 26.5 pg (25.0-34.0); Mean Corpuscular Volume 80.4 fL (80.0-100.0); Mean Platelet Volume 10.2 fL (9.4-12.4); Monocytes % (auto) 1.9 %; Neutrophils % (auto) 85.8 %; Platelet Count 278 K/uL (130-400); RDW Standard Deviation 40.4 fL (36.4-46.3); Red Blood Count 6.22 M/uL (4.70-6.10); White Blood Count 15.61 K/ul (4.8-10.8)
--- NOTE | 2023-12-09 08:18 | Orthopedic Consultation ---
Date of Consultation December 09, 2023 Assessment & Plan (1) Lumbar disc herniation with radiculopathy: Assessment lumbar disc herniation L4-5 and the right. Plan at this time MRI lumbar spine does demonstrate evidence of acute disc ration L4-5 in the right with a migration of fragment caudally markedly compressing traversing L5 nerve root. In light of the patient's 2 weeks of severe pain and inability to ambulate is reasonable to consider surgical invention. Would require a lumbar laminotomy discectomy of L4-5 and the right. Risk benefits pros cons alternatives outlined detail. This point patient would like to surgery. Will plan for surgery as soon as possible this week. History of Present Illness Reason for Consultation: Right leg pain Attending Physician: Jose Mitchell MD History of Present Illness This is a pleasant 48 male presents the hospital with severe right leg pain. He had 2 visits to the emergency room secondary to the symptoms. 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 Involves the right buttock posterior thigh extending to the ankle. He is unable to ambulate. Left lower extremity is essentially asymptomatic. Allergies Allergy/AdvReac Type Severity Reaction Status Date / Time No Known Allergies Allergy Verified 02/03/23 12:06 Home Medications Medication Instructions Recorded Confirmed Type losartan 100 mg tablet 50 mg (1/2 x 100 mg) PO BID #90 08/07/23 12/07/23 Rx tabs BiPap Machine #1 ea 10/22/23 Rx cyclobenzaprine 10 mg tablet 10 mg PO TID PRN muscle spasm #15 12/01/23 12/07/23 Rx tabs lidocaine 5 % topical patch 1 patch topical DAILY #15 ea 12/01/23 12/07/23 Rx (Lidoderm) acetaminophen 500 mg tablet 1,500 mg PO Q6H PRN Pain 12/07/23 12/07/23 History (Tylenol Extra Strength) naproxen sodium 220 mg tablet 660 mg PO .Q4-6HRS PRN Pain 12/07/23 12/07/23 History (Aleve) Patient History Surgical History Hx of wisdom tooth extraction Family History Father Myocardial infarction Stroke Denies family history of Ovarian cancer Prostate cancer Breast cancer Colorectal cancer Social History Smoking Status: Never smoker Tobacco Type: Smokeless Tobacco (Dip or Chew) Cigarettes Per Day: 1 can snuff daily; Do You Dip or Chew Tobacco: Yes; Hx Alcohol Use: No Hx Substance Use: No Preferred Language: Maori Communication Ability: Effective Visual Impairment: No Limitations Hearing Ability: Normal Scholastic Aptitude Test Grader Required: No Beliefs That Will Affect Care: None marital status: Current Living Situation: Family current occupational status: employed 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 He has reasonable +5-5 bilateral plantarflexion dorsiflexion central/lungs. Markedly positive tension signs with straight leg raising on the right. Negative on the left. He has negative logroll bilaterally. Results & Data Vital Signs (Past 12 Hours) Vital Signs Temp Pulse Resp BP Pulse Ox O2 Del Method 12/09/23 07:54 36.6 C 91 H 20 144/86 H 96 Room Air 12/08/23 21:40 Room Air 12/08/23 20:55 36.6 C 101 H 17 140/87 95 Room Air
[2023-12-09 09:30] LABS: Potassium 4.4 mmol/L (3.5-5.1)
[2023-12-09 09:31] LABS: BUN Creatinine Ratio 24.2 (10-20); Calcium 9.3 mg/dl (8.6-10.3); Est GFR (African American) 79.7 ml/min; Est GFR (Non-African American) 68.8 ml/min
--- NOTE | 2023-12-09 11:38 | Hospitalist Progress Note ---
Date of Service December 09, 2023 Assessment & Plan (1) Acute lumbar radiculopathy: Plan: Involving right leg due to L4-L5 HNP. Pain management consultation and orthopedic spine consultation appreciated. He will undergo surgical intervention sometime this week. Continue IV Solu-Medrol along with pain control measures. (2) Severe obstructive sleep apnea: Plan: CPAP HS. stable. (3) Tobacco chew use: Plan: Nicotine patch daily as needed (4) Hypertension: Plan: Continue losartan and metoprolol. Addition of metoprolol has helped with heart rate and blood pressure control. (5) Anxiety: Plan: Lorazepam as needed Plan Lumbar surgical intervention upcoming this week. Admission and Anticipated Discharge Date Admission Date: December 07, 2023 Subjective Alert and oriented. is at the bedside. Orthopedic spine consultation noted. He will undergo surgical intervention sometime this week. Pain management's planned injection has been canceled. Addition of metoprolol has helped his heart rate and blood pressure. Will use lorazepam as needed for anxiety. Continue parenteral steroid therapy and narcotic pain control measures for now. Review of Systems 2 Review of Systems: Constitutional-no fever or chills ENT-no blurred vision, no double vision, no epistaxis, no sore throat Respiratory-no cough, no wheezing, no shortness of breath Cardiac-no palpitations, no chest pain, no syncope GI-no nausea, vomiting, diarrhea, melena, hematochezia -no urinary retention, no urinary incontinence, no dysuria, no hematuria Musculoskeletal-lumbar pain with right leg lumbar radiculopathy symptoms . No joint pain, no muscle tenderness Skin-no bruising, no rashes, no pruritus Neuro-right leg lumbar radiculopathy symptoms. Psych-no depression, no anxiety Physical Exam 2 Physical Exam: General-alert and oriented x3, no fever, no chills HEENT-head atraumatic and normocephalic, pupils equal and reactive to light, extraocular muscles intact Neck-no lymphadenopathy or thyromegaly, trachea midline Chest-clear to auscultation. No rales, wheezing or rhonchi Cardiac-regular rate and rhythm, normal S1 and S2 Abdomen-normal bowel sounds, no hepatosplenomegaly Extremities-no cyanosis, clubbing, or edema. Limited range of motion lumbar spine due to pain Neuro-cranial nerves II through XII intact, motor and sensory function within normal limits, strength symmetrical, no focal deficits. Right lower extremity lumbar radiculopathy symptoms Psych-normal affect, normal mood Results & Data Results & Data Vital Signs (Past 12 Hours) Vital Signs Temp Pulse Resp BP Pulse Ox O2 Del Method 12/09/23 07:54 36.6 C 91 H 20 144/86 H 96 Room Air Laboratory Results 12/09/23 06:33 12/09/23 06:33 PG Care Time/CCT Total # of Minutes Spent Total Time Spent with Patient: Total time spent is greater than 50% in coordination of care (as documented) at patient's floor/unit and/or counseling patient: Coding Level of Care Code 99517 SUB INP/OBS CARE 3/50MIN Diagnoses Acute lumbar radiculopathy M54.16 Severe obstructive sleep apnea G47.33 Tobacco chew use Z72.0 Hypertension I10 Anxiety F41.9
--- NOTE | 2023-12-09 15:12 | Anesthesiology Consultation ---
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 Surgery Operation Date: 12/09/23 12:50 Proposed Procedures p Right L4-L5 Transforaminal Epidural Steroid Injection - Jacey Lo DO Operation Date: 12/10/23 09:05 Proposed Procedures p Right L4-L5 Laminectomy - Adrien Gomez DO Height/Weight Height: 5 ft 5 in Weight: 128.5 kg Allergies Allergy/AdvReac Type Severity Reaction Status Date / Time No Known Allergies Allergy Verified 02/03/23 12:06 Medications Home Medications Medication Instructions Recorded Confirmed Last Taken losartan 100 mg tablet 50 mg (1/2 x 100 mg) PO BID #90 08/07/23 12/07/23 Unknown tabs BiPap Machine #1 ea 10/22/23 Unknown cyclobenzaprine 10 mg tablet 10 mg PO TID PRN muscle spasm #15 12/01/23 12/07/23 Unknown tabs lidocaine 5 % topical patch 1 patch topical DAILY #15 ea 12/01/23 12/07/23 Unknown (Lidoderm) acetaminophen 500 mg tablet 1,500 mg PO Q6H PRN Pain 12/07/23 12/07/23 Unknown (Tylenol Extra Strength) naproxen sodium 220 mg tablet 660 mg PO .Q4-6HRS PRN Pain 12/07/23 12/07/23 Unknown (Aleve) Active Medications Generic Name Dose Route Start Last Admin Trade Name Freq PRN Reason Stop Dose Admin Hydromorphone HCl 1 mg 12/08/23 16:54 12/08/23 18:42 Hydromorphone Inj 1 Mg/Ml Syringe IV 12/22/23 16:53 1 mg Q3H PRN Administration Pain Methylprednisolone 60 mg/ 0.96 mls @ 1.5 mls/min 12/08/23 09:30 12/09/23 09:59 Syringe IV 01/07/24 09:29 1.5 mls/min Q8H YORDY Administration Losartan Potassium 50 mg 12/07/23 21:00 12/09/23 09:59 Losartan Potassium 50 Mg Tab PO 01/06/24 20:59 50 mg BID YORDY Administration Metoprolol Tartrate 50 mg 12/08/23 21:00 12/09/23 09:59 Metoprolol Tartrate 50 Mg Tab PO 01/07/24 20:59 50 mg BID YORDY Administration Miscellaneous 1 each 12/08/23 08:59 12/09/23 09:50 Remove Nicoderm Patch N/A 01/07/24 08:58 Not Given DAILY@0859 YORDY Nicotine 1 patch 12/08/23 09:00 12/09/23 10:00 Nicotine 21 Mg/24 Hr Tdsy TD 01/07/24 08:59 1 patch QAM YORDY Administration Past Family History Family History Father Myocardial infarction Stroke Denies family history of Ovarian cancer Prostate cancer Breast cancer Colorectal cancer Past Surgical History Surgical History Hx of wisdom tooth extraction Social History Smoking Status: Never smoker Smoking cigarettes per day: 1 can snuff daily Do You Dip or Chew Tobacco: Yes Hx Alcohol Use: No Hx Substance Use: No Physical Exam Vital Signs Last Vital Signs Temp 97.9 F 12/09/23 07:54 Pulse 91 H 12/09/23 07:54 Resp 20 12/09/23 07:54 BP 144/86 H 12/09/23 07:54 Pulse Ox 96 12/09/23 07:54 O2 Del Method Room Air 12/09/23 07:54 Testing Laboratory Results 12/09/23 06:33 12/09/23 06:33 Urine Color Yellow 12/07/23 17:47 Urine Appearance Clear (Clear) 12/07/23 17:47 Urine pH 7.0 (4.5-7.5) 12/07/23 17:47 Ur Specific [place] 1.019 (1.000-1.030) 12/07/23 17:47 Urine Protein Negative (Negative) 12/07/23 17:47 Urine Glucose (UA) Negative (Negative) 12/07/23 17:47 Urine Ketones 1+ (Negative) H 12/07/23 17:47 Urine Nitrite Negative (Negative) 12/07/23 17:47 Ur Leukocyte Esterase 2+ (Negative) H 12/07/23 17:47 Urine WBC (Auto) >50 /hpf (0-5) H 12/07/23 17:47 Urine RBC (Auto) 3-5 /hpf (0-2) H 12/07/23 17:47 U Hyaline Cast (Auto) 0-2 /lpf (0-2) 12/07/23 17:47 U Epithel Cells (Auto) 0-2 /hpf (0-2) 12/07/23 17:47 Urine Bacteria (Auto) None Seen (None Seen) 12/07/23 17:47 12/07/23 17:47 Urine Culture - Final Urine,Clean Catch Escherichia coli Electrocardiogram Date: 12/08/23 Sinus tachycardia, rate 102 bpm Left axis deviation Abnormal ECG No previous ECGs available Confirmed by Phu Parisi ([id number]) on 12/08/2023 3:18:58 PM
[2023-12-09] MEDS: LORazepam 0.5 MG TAB PO PRN (17:13)
[2023-12-10 07:50] LABS: Basophils # (auto) 0.03 K/uL (0.00-0.20); Basophils % (auto) 0.1 %; Hematocrit (blood only) 50.6 % (42.0-52.0); Immature Granulocytes # (auto) 0.66 K/uL (0.01-0.20); Lymphocytes # (auto) 1.99 K/uL (1.20-3.40); Lymphocytes % (auto) 9.2 %; Mean Corpuscular Hemoglobin 26.9 pg (25.0-34.0); Mean Corpuscular Hgb Conc 33.6 g/dL (32.0-36.0); Mean Corpuscular Volume 80.1 fL (80.0-100.0); Mean Platelet Volume 10.2 fL (9.4-12.4); Monocytes # (auto) 0.63 K/uL (0.11-0.59); Monocytes % (auto) 2.9 %; Neutrophils # (auto) 18.39 K/uL (1.40-6.50); Neutrophils % (auto) 84.8 %; Platelet Count 296 K/uL (130-400); RDW Coefficient of Variation 14.1 % (11.5-14.5); RDW Standard Deviation 40.5 fL (36.4-46.3); Red Blood Count 6.32 M/uL (4.70-6.10)
[2023-12-10 07:54] LABS: BUN Creatinine Ratio 27.7 (10-20); Calcium 9.5 mg/dl (8.6-10.3); Creatinine Clr Calc Pharmacy 95.8 ml/min; Est GFR (African American) 83.8 ml/min; Est GFR (Non-African American) 72.3 ml/min; Potassium 4.9 mmol/L (3.5-5.1)
[2023-12-10] MEDS ORDERED: PROPOFOL IV EMULSION 10 MG/ML 20 ML VIAL IV ONE (08:25)
[2023-12-10] MEDS ORDERED: MIDAZOLAM HCL 1 MG/ML 2ML VIAL ONE (08:25)
[2023-12-10] MEDS ORDERED: ROCURONIUM BROMIDE 10 MG/ML 5 ML VIAL IV ONE ×2 (08:25→10:18)
[2023-12-10] MEDS ORDERED: fentaNYL citrate PF 100 MCG/2 ML VIAL ONE (08:25)
[2023-12-10] MEDS ORDERED: SUGAMMADEX SODIUM 200 MG/2 ML VIAL IV ONE ×2 (08:25→10:42)
[2023-12-10] MEDS ORDERED: ONDANSETRON INJ 2 MG/ML 2 ML VIAL ONE (08:25)
[2023-12-10] MEDS ORDERED: LIDOCAINE 2% 2 ML VIAL/AMP(20MG/ML) INFIL ONE (08:25)
--- NOTE | 2023-12-10 08:57 | History & Physical Bridge Note ---
Date of Service December 10, 2023 History & Physical Bridge Note I have examined the patient, reviewed the History & Physical and in the interval since the performance of the History & Physical I have noted the following changes of clinical significance: no changes noted Postop seroma lumbar spine laminectomy L4-5 on the right
[2023-12-10] MEDS ORDERED: HYDROmorphone INJ 2 MG/ML SYR/VIAL IV PRN (09:11)
[2023-12-10] MEDS ORDERED: ATROPINE SULFATE 0.1 MG/ML 10ML SYR IV PRN (09:11)
[2023-12-10] MEDS ORDERED: ePHEDrine sulfate 50 MG/ML AMP IV PRN (09:11)
[2023-12-10] MEDS ORDERED: ONDANSETRON INJ 2 MG/ML 2 ML VIAL IV PRN ×2 (09:11→11:54)
[2023-12-10] MEDS ORDERED: fentaNYL citrate PF 100 MCG/2 ML VIAL IV PRN (09:11)
[2023-12-10] MEDS: SCOPOLAMINE 1 MG/72 HR TDSY PATCH TD ONE ×2 (09:22)
[2023-12-10] MEDS: LACTATED RINGER'S 1,000 ML IV SCH ×2 (09:29→12:13)
[2023-12-10] MEDS: ceFAZolin 3000MG 3,000 MG/72.5 ML BAG IV SCH (09:33)
[2023-12-10] MEDS ORDERED: ePHEDrine sulfate 50 MG/5 ML SYR ONE (10:03)
[2023-12-10] MEDS: BUPIVACAINE/EPINEPHRINE 0.25% 1:200,000 30 ML VIAL ONE (10:11)
[2023-12-10] MEDS: ceFAZolin 330 MG/ML 1 GM VIAL ONE (10:12)
[2023-12-10] MEDS: FLOSEAL HEMOSTATIC MATRIX 10ML TOP ONE (10:29)
--- NOTE | 2023-12-10 10:41 | Operative Report ---
Post Operative Report Pre & Post Diagnosis Operation Date: 12/10/23 09:05 Pre-Op Diagnosis: Lumbar Disc Herniation with Radiculopathy L4-5 on the right morbid obesity Post-Op Diagnosis: Same I identified the patient and participated in the time-out.: Yes Procedure Operation Date: 12/10/23 09:05 Actual Procedures Lumbar laminotomy L4-5 on the right with excision of herniated free fragment Surgeon Adrien Gomez, DO Director Of Laboratory Operations None Estimated Blood Loss 5 Findings See Below Patient is 5 foot 5 weighing over 128 kg with a BMI in excess of 47. Patient's body habitus did contribute to significant technical difficulty with positioning exposure and the procedure itself. This at least 50% increased operative time. This would constitute a 22 modifier. Specimens None Indications This is a 48-year-old male that presents the emergency room recently and subsequent minutes secondary to severe right leg radiculopathy. In light of the narcotic requirements and lack of response to steroids he is here for urgent laminotomy excision of free fragment. Description of Procedure Patient was met with identified informed consent obtained. Patient was then taken to the operative suite underwent patient placed in a prone position on the [facility] top Demetrio frame. All bony promises well-padded eyes inspected to ensure no external pressure placed upon them. This point the lumbar spine was prepped and draped in a sterile fashion. With the assistance of fluoroscopy identified the L4-5 disc space. Sharp dissection with the assistance of Bovie cautery form down to expose the interlaminar space at L L4-5 on the right. I did have to use our deepest retractors to expose the region. And then performed a small laminotomy at L5 L4 excising the lateral portion of ligamentum flavum to expose a markedly compressed traversing L4 V nerve root. It was able to mobilize this medially remove several fragments of free disc material that migrated caudally along the root. The area was explored several times to ensure all fragments addressed. The root was moving freely. He was then copiously irrigated and closed with subcutaneous Vicryl and 4 Monocryl for final skin closure. Steri-Strips sterile dressings placed. Patient waken taken PACU stable condition. I attest to the content of the Intraoperative Record and any orders documented therein. Any exceptions are noted below.
--- NOTE | 2023-12-10 10:43 | Fluoroscopy Report ---
INTRAOPERATIVE RADIOGRAPH CLINICAL HISTORY: L4-L5 laminectomy. Fluoro time: 7 seconds Ka,r: 7.50 mGy FINDINGS: A single spot fluoroscopic view of the lower lumbar spine is presented. A surgical probe pr ojects posteriorly at the level of the superior endplate of L5. IMPRESSION: Intraoperative image of the lumbar spine as above. Electronically signed by: Ilan Mcdonough M.D. 12/10/2023 10:42 AM
[2023-12-10] MEDS: LABETALOL HCL IV 5 MG/ML 20ML IV ONE (11:05)
[2023-12-10] MEDS: LABETALOL HCL IV 5 MG/ML 20ML IV STA (11:18)
--- NOTE | 2023-12-10 11:32 | Anesthesiology Progress Note ---
Date of Service December 10, 2023 Anesthesia Post Procedure Vital Signs Vital Signs: Temp Pulse Pulse Resp BP BP Pulse Ox 12/10/23 11:30 98.1 F 87 12 147/96 H 95 12/10/23 11:20 77 12 144/98 H 93 12/10/23 11:10 88 12 166/112 H 95 12/10/23 11:00 80 12 179/124 H 96 12/10/23 10:53 97.2 F L 92 H 20 139/110 H 97 12/10/23 09:04 97.9 F 88 20 175/119 H 98 12/10/23 07:36 182/105 H 12/10/23 07:22 97.3 F L 78 20 96 12/10/23 01:15 148/98 H 12/09/23 21:07 97.5 F L 79 18 165/106 H 98 12/09/23 15:35 98.2 F 89 165/95 H 97 O2 Del Method O2 Flow Rate 12/10/23 11:30 Room Air 12/10/23 11:20 Room Air 12/10/23 11:10 Oxymask 4 12/10/23 11:00 Oxymask 8 12/10/23 10:53 Oxymask 8 12/10/23 09:04 Room Air 12/10/23 07:36 12/10/23 07:22 Room Air 12/10/23 01:15 12/09/23 21:07 Room Air 12/09/23 15:35 Room Air Pain Intensity Lower Back: Pain Intensity: 8 Transfer of Care Handoff Completed per policy Notes Mental Status: alert / awake / arousable and participated in evaluation Patient Amnestic to Procedure: Yes Nausea / Vomiting: adequately controlled Pain: adequately controlled Airway Patency, RR, SpO2: stable & adequate BP & HR: stable & adequate Hydration State: stable & adequate Anesthetic Complications: no major complications apparent and Pt Satisfied with anesthetic care
[2023-12-10] MEDS ORDERED: NALOXONE HCL 0.4 MG/1 ML VIAL/CARP IV PRN (11:54)
[2023-12-10] MEDS ORDERED: ACETAMINOPHEN 1,000 MG/100 ML VIAL IV PRN (11:54)
[2023-12-10] MEDS ORDERED: HYDROmorphone INJ 0.5 MG/0.5 ML SYR IV PRN (11:54)
[2023-12-10] MEDS ORDERED: ALUMINUM/MAGNESIUM SUSP 30 ML UDC PO PRN (11:54)
[2023-12-10] MEDS ORDERED: LORazepam 0.5 MG in SYRINGE 0.25 ML IV PRN (11:54)
[2023-12-10] MEDS ORDERED: ONDANSETRON 4 MG OD TAB PO PRN (11:54)
[2023-12-10] MEDS ORDERED: METOCLOPRAMIDE HCL INJ 5 MG/ML 2 ML VIAL IV PRN (11:54)
[2023-12-10] MEDS ORDERED: bisacodyL 10 MG SUPP PR PRN (11:54)
[2023-12-10] MEDS ORDERED: FAMOTIDINE 20 MG TAB PO PRN (11:54)
[2023-12-10] MEDS ORDERED: MAGNESIUM HYDROXIDE SUSP 30 ML UDC PO PRN (11:54)
[2023-12-10] MEDS ORDERED: diphenhydrAMINE Capsule 25 MG CAP PO PRN (11:54)
[2023-12-10] MEDS ORDERED: HYDROmorphone INJ 1 MG/ML SYRINGE IV PRN (11:54)
[2023-12-10] MEDS ORDERED: DO NOT ADMINISTER PNEUMOCOCCAL VACCINE PRN (11:54)
[2023-12-10] MEDS ORDERED: ACETAMINOPHEN 500 MG TAB PO PRN (11:54)
[2023-12-10] MEDS ORDERED: DO NOT ADMINISTER FLU VACCINE PRN (11:54)
[2023-12-10] MEDS ORDERED: SOD PHOSPHATE/SOD BIPHOSPHATE ENEMA 132 ML BTL PR PRN (11:54)
[2023-12-10] MEDS ORDERED: hydrOXYzine HCl 25 MG TAB PO PRN (11:54)
[2023-12-10] MEDS ORDERED: PROMETHAZINE HCL 12.5 MG in SODIUM CHLORIDE 0.9% 50 ML IV PRN (11:54)
[2023-12-10] MEDS: dexAMETHasone 6 MG in SYRINGE 0 ML IV SCH (12:31)
[2023-12-10] MEDS: oxyCODONE HCL IR 5 MG TAB (IMMEDIATE RELEASE) PO PRN (14:13)
[2023-12-10] MEDS: CHECK SCOPOLAMINE PATCH PLACEMENT SCH (16:53)
[2023-12-10] MEDS: ceFAZolin 2000MG 2,000 MG/15 ML SYR IV SCH (17:20)
[2023-12-10] MEDS ORDERED: traMADol HCL 50 MG TABLET PO PRN (17:28)
--- NOTE | 2023-12-10 17:35 | Hospitalist Progress Note ---
Date of Service December 10, 2023 Assessment & Plan (1) Acute lumbar radiculopathy: Plan: Involving right leg due to L4-L5 HNP. Pain management consultation and orthopedic spine consultation appreciated. Lumbar surgery completed today, December 09. He is now on dexamethasone 6 mg IV every 8 hours postoperatively. He is having CORRESPONDENCE DICTATOR side effects from narcotics. Will switch to tramadol as needed (2) Severe obstructive sleep apnea: Plan: CPAP HS. stable. (3) Tobacco chew use: Plan: Nicotine patch daily as needed (4) Hypertension: Plan: Continue losartan and metoprolol. Addition of metoprolol has helped with heart rate and blood pressure control. (5) Anxiety: Plan: Lorazepam as needed Plan Hopeful discharge to home within the next day or 2 Admission and Anticipated Discharge Date Admission Date: December 07, 2023 Subjective Patient is seen postoperatively. He is alert and sitting up in chair. He is obviously doing better. Multiple family members are in attendance. He has not tolerating narcotics very well with CORRESPONDENCE DICTATOR side effects. He was cautioned again to not to try to do too much too soon. Orthopedic spine surgery will determine if he can be discharged tomorrow, December 10, or not. Review of Systems 2 Review of Systems: Constitutional-no fever or chills ENT-no blurred vision, no double vision, no epistaxis, no sore throat Respiratory-no cough, no wheezing, no shortness of breath Cardiac-no palpitations, no chest pain, no syncope GI-no nausea, vomiting, diarrhea, melena, hematochezia -no urinary retention, no urinary incontinence, no dysuria, no hematuria Musculoskeletal-lumbar pain with right leg lumbar radiculopathy symptoms have improved postoperatively. No joint pain, no muscle tenderness Skin-no bruising, no rashes, no pruritus Neuro-right leg lumbar radiculopathy symptoms have improved postoperatively. Psych-no depression, no anxiety Physical Exam 2 Physical Exam: General-alert and oriented x3, no fever, no chills. Obese HEENT-head atraumatic and normocephalic, pupils equal and reactive to light, extraocular muscles intact Neck-no lymphadenopathy or thyromegaly, trachea midline Chest-clear to auscultation. No rales, wheezing or rhonchi Cardiac-regular rate and rhythm, normal S1 and S2 Abdomen-normal bowel sounds, no hepatosplenomegaly Extremities-no cyanosis, clubbing, or edema. Limited range of motion lumbar spine postoperatively Neuro-cranial nerves II through XII intact, motor and sensory function within normal limits, strength symmetrical, no focal deficits. Psych-normal affect, normal mood Results & Data Results & Data Vital Signs (Past 12 Hours) Vital Signs Temp Pulse Pulse Pulse Resp BP BP 12/10/23 14:59 36.6 C 89 17 130/85 12/10/23 14:06 36.6 C 81 17 120/75 12/10/23 13:01 36.5 C 83 17 143/91 H 12/10/23 12:30 36.8 C 76 17 148/93 H 12/10/23 11:58 36.7 C 88 17 148/94 H 12/10/23 11:57 88 148/94 H 12/10/23 11:30 36.7 C 87 12 147/96 H 12/10/23 11:20 77 12 144/98 H 12/10/23 11:10 88 12 166/112 H 12/10/23 11:00 80 12 179/124 H 12/10/23 10:53 36.2 C L 92 H 20 139/110 H 12/10/23 09:04 36.6 C 88 20 175/119 H 12/10/23 07:36 182/105 H 12/10/23 07:22 36.3 C L 78 20 Pulse Ox O2 Del Method O2 Flow Rate 12/10/23 14:59 98 Room Air 12/10/23 14:06 98 Room Air 12/10/23 13:01 95 Room Air 12/10/23 12:30 95 Room Air 12/10/23 11:58 95 Room Air 12/10/23 11:57 12/10/23 11:30 95 Room Air 12/10/23 11:20 93 Room Air 12/10/23 11:10 95 Oxymask 4 12/10/23 11:00 96 Oxymask 8 12/10/23 10:53 97 Oxymask 8 12/10/23 09:04 98 Room Air 12/10/23 07:36 12/10/23 07:22 96 Room Air Laboratory Results 12/10/23 07:11 12/10/23 07:11 PG Care Time/CCT Total # of Minutes Spent Total Time Spent with Patient: Total time spent is greater than 50% in coordination of care (as documented) at patient's floor/unit and/or counseling patient: Coding Level of Care Code 37026 SUB INP/OBS CARE 350MIN Diagnoses Acute lumbar radiculopathy M54.16 Severe obstructive sleep apnea G47.33 Tobacco chew use Z72.0 Hypertension I10 Anxiety F41.9
[2023-12-10] MEDS: LORazepam 0.5 MG TAB PO PRN (19:51)
[2023-12-10] MEDS: DOCUSATE SODIUM/SENNA 50/8.6MG TAB PO SCH (20:39)
[2023-12-10] MEDS: traMADol HCL 50 MG TABLET PO PRN (20:40)
[2023-12-11] MEDS: POLYETHYLENE (MIRALAX) 17 GM PACK PO SCH (04:59)
[2023-12-11 07:37] LABS: Basophils # (auto) 0.03 K/uL (0.00-0.20); Basophils % (auto) 0.1 %; Hematocrit (blood only) 47.2 % (42.0-52.0); Hemoglobin 15.8 g/dl (14.0-18.0); Immature Granulocytes # (auto) 0.18 K/uL (0.01-0.20); Immature Granulocytes % (auto) 0.8 %; Lymphocytes # (auto) 1.53 K/uL (1.20-3.40); Lymphocytes % (auto) 7.1 %; Mean Corpuscular Hemoglobin 26.9 pg (25.0-34.0); Mean Corpuscular Hgb Conc 33.5 g/dL (32.0-36.0); Mean Corpuscular Volume 80.4 fL (80.0-100.0); Mean Platelet Volume 10.2 fL (9.4-12.4); Monocytes # (auto) 0.99 K/uL (0.11-0.59); Monocytes % (auto) 4.6 %; Neutrophils # (auto) 18.92 K/uL (1.40-6.50); Neutrophils % (auto) 87.4 %; Platelet Count 273 K/uL (130-400); RDW Standard Deviation 40.8 fL (36.4-46.3); Red Blood Count 5.87 M/uL (4.70-6.10); White Blood Count 21.65 K/ul (4.8-10.8)
[2023-12-11 08:07] LABS: BUN Creatinine Ratio 26.8 (10-20); Calcium 8.6 mg/dl (8.6-10.3); Creatinine Clr Calc Pharmacy 92.7 ml/min; Est GFR (African American) 80.5 ml/min; Est GFR (Non-African American) 69.5 ml/min
--- NOTE | 2023-12-11 11:31 | Orthopedic Progress Note ---
Date of Service December 11, 2023 Assessment & Plan (1) Lumbar disc herniation with radiculopathy: Plan: Assessment status post lumbar laminectomy with excision of herniated free fragment her plan at this time patient's responded well. His radiculopathy is resolved. His pain is well-controlled. Subsequently we will discharge him home. He will follow-up in our office in approximately 2 weeks for evaluation. Restrictions outlined in the discharge instructions. Admission and Anticipated Discharge Date Admission Date: December 07, 2023 Subjective Patient's right leg pain is markedly improved. Is been up and ambulating the halls without difficulty. Physical Exam Physical Exam: On exam he is comfortable. Is good strength testing. Results & Data Vital Signs (Past 12 Hours) Vital Signs Temp Pulse Resp BP BP Pulse Ox O2 Del Method 12/11/23 08:11 36.9 C 94 H 16 148/95 H 97 Room Air 12/11/23 03:13 36.7 C 78 17 142/87 H 96 Room Air Queries Orthopedic Spine Obesity: Yes
--- NOTE | 2023-12-11 11:46 | Discharge Summary ---
Date of Service December 11, 2023 Admission HPI Per Admitting Provider Apryl is a 48-year-old male with PMH of HTN, severe obstructive sleep apnea, and migraines. He presented via EMS for right lower back pain that shoots down his right leg x 2 weeks. 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 He then went to see a chiropractor that Friday on 11/27, and woke up the following morning with even worse back pain; could not walk, could not stand, and all movements hurt. Back pain is located in his lower right back with radiation down the leg into the feet. No radiation of the back or on the left side. He describes it as a sharp stabbing pain, and rates it 10/10 at its worst; 2/10 at present without movements. Movement exacerbates the pain. Laying still, and bending his right leg helps to alleviate the pain. Associated symptoms include intermittent numbness and tingling in the right leg. Patient h as been rotating Tylenol and Aleve every 5-6h, but this is not take with the pain. He did try menthol patch at home which helped. When he came to the ED on 11/30, he was given lidocaine patches and cyclobenzaprine, but neither these truly helped; cyclobenzaprine made him feel "groggy". No prior surgeries, except on his left leg when he was 11 years old. He does have a history of "2 bulged disks", which she sustained in his 20s when he was lifting something heavy from a truck. Patient only takes losartan on a daily basis, and reports that he did take it today. He also uses a CPAP at night for sleep apnea, but has not been using it recently because his back hurts too much. Last BM yesterday. Patient denies smoking, alcohol use, and recreational drug use. He does chew tobacco. Patient is hypertensive at 186/122 at time of admission. ED course: Lorazepam 0.5 mg IV NSS 500 mL IV Dexamethasone 10 mg IV ROS: Patient endorses R lower back pain w/ rad down right leg into foot, and in termittent numbness/tingling in the right leg. Patient denies fever, chills, night-sweats, GALVIN, dizziness, lightheadedness, changes in vision, chest pain, chest pressure, chest palpitations, SOB, cough, pleuritic CP, abdominal pain, N/V/D, change in urinary/bowel habits, saddle anesthesia, burning with urination, or blood in the urine/stool. Principal Diagnosis L4-L5 herniated nucleus polyposis with lumbar radiculopathy, essential hypertension, sinus tachycardia, anxiety disorder Discharge Exam General-alert and oriented x3, no fever, no chills. Obese HEENT-head atraumatic and normocephalic, pupils equal and reactive to light, extraocular muscles intact Neck-no lymphadenopathy or thyromegaly, trachea midline Chest-clear to auscultation. No rales, wheezing or rhonchi Cardiac-regular rate and rhythm, normal S1 and S2 Abdomen-normal bowel sounds, no hepatosplenomegaly Extremities-no cyanosis, clubbing, or edema. Limited range of motion lumbar spine postoperatively Neuro-cranial nerves II through XII intact, motor and sensory function within normal limits, strength symmetrical, no focal deficits. Psych-normal affect, normal mood Discharge Data Allergies Allergy/AdvReac Type Severity Reaction Status Date / Time No Known Allergies Allergy Verified 02/03/23 12:06 Consultations 12/07/23 16:38 ED Decision to Admit Stat 12/08/23 09:16 Consult Orthopedic Spine Surgery Routine 12/08/23 09:52 Consult Pain Management Routine Procedures Performed Operation Date: 12/10/23 09:05 Actual Procedures p Right L4-L5 Laminectomy(Not Applicable) - Adrien Gomez DO Ordered Studies 12/07/23 12:45 MR lumbar spine wo con Stat 12/10/23 07:45 FL spine 1V any level Routine Hospital Course (1) Acute lumbar radiculopathy: Involving right leg due to L4-L5 HNP. Pain management consultation and orthopedic spine consultation appreciated. Lumbar surgery completed on December 09, postoperative day #1. He is doing well at this time. He has been seen by orthopedic spine surgery and will be discharged home today, December 10. He will use tramadol 50 mg as needed for pain (2) Severe obstructive sleep apnea: CPAP HS. stable. (3) Tobacco chew use: Nicotine patch daily as needed (4) Hypertension: Continue losartan and metoprolol. Addition of metoprolol has helped with heart rate and blood pressure control. (5) Anxiety: Lorazepam as needed Plan Home today, December 10 Total Time Total Time Spent Total Time Spent (In Minutes): 45 minutes Discharge Plan Discharge Items Patient Disposition: Home - Self-Care Reason For Visit: BACK INJURY/PAIN Discharge Diagnosis: Lumbar disc herniation with radiculopathy, uncontrolled essential hypertension and tachycardia, anxiety disorder Activity: As commented below Non-emergency contact: Primary Care Provider Call non-emergency contact if: you have any medication questions Follow-up/Referrals: Smooth Allen CRNP [Primary Care Provider] - Diet: Regular Addtl Attending Provider Instructions: ACTIVITY RECOMMENDATIONS: SELF CARE INSTRUCTIONS AFTER A LAMINECTOMY 1. No prolonged sitting (less than 30 minutes for the first 3 weeks after surgery). 2. No bending, lifting more than 5 pounds, or twisting (roll like a log when turning in bed). 3. You may shower 3 days after surgery if no drainage from wound. Thoroughly dry wound. Do not soak in the tub. 4. Please walk as much as you can for exercise. Gradually increase the distance that you walk as your endurance increases. 5. You may drive in 7-10 days if you are comfortable and no longer requiring pain medications. SPECIAL CARE INSTRUCTIONS: VERY IMPORTANT TO READ AND REVIEW A. Your surgical incision has been closed with a cosmetic suture under the skin that will dissolve in about 6 weeks. In 14 days, you can use a pair of clean scissors and cut the suture that is left outside of the skin at the ends of your incision. B. Complications are uncommon, but please contact us if you have any signs or symptoms of: 1. wound infection (fever higher than 102.5 degrees F, redness, separation of wound, drainage, or increasing pain from the incision) 2. blood clots in legs (pain, swelling, redness and warmth in legs) 3. urinary tract infection (fever higher than 102.5 degrees, burning upon urination or increased frequency of urination) 4. nerve problems (inability to walk on your toes or heels, numbness, loss of bowel or bladder control) 5. any other symptoms that concern you. C. Please call the office at if you have any concerns or questions about your operation or recovery. MANAGING PAIN AFTER SPINAL SURGERY 1. Narcotic medication is intended for short-term use and will be provided for surgical pain. Surgical pain usually lasts for a period of 4-6 weeks. Narcotic medication includes Percocet, Vicodin, Darvocet, Tylenol #3 or Lortab. 2. Longer-term pain is more appropriately treated with non-narcotic medication such as Tylenol ES. 3. Muscle spasm is not appropriately treated with narcotics. Muscle relaxers such as Soma, Flexeril or Skelaxin can be used along with Tylenol ES. 4. Remember that we all live with some "aches and pains". This is not unusual or uncommon after an injury or as we get older. 5. We will provide appropriate medication within the normal guidelines of their prescribed use. We will also be very cautious and aware of potential abuse and extended duration of patients' medication needs. 6. Please allow 2-3 days to process refills. Prescriptions will not be mailed but must be picked up at the office. FOLLOW UP VISIT: Keep your scheduled follow-up appointment. Any questions, please call the office at . Metoprolol is a new medication for blood pressure and heart rate control. Use tramadol as needed for any recurrent pain. Pending Studies at Discharge: No Stand-Alone Forms: [facility] [employer], Smoking Cessation Medications and DC Order Prescriptions: New metoprolol tartrate 50 mg Tablet 50 mg PO BID Qty: 60 0RF tramadol 50 mg tablet 50 mg PO Q6H PRN (Reason: pain) Qty: 20 0RF Continued (DME) BiPap Machine Misc See Rx Instructions .Route Qty: 1 0RF Rx Instructions: Settings- losartan 100 mg tablet 50 mg PO BID Qty: 90 2RF cyclobenzaprine 10 mg tablet 10 mg PO TID PRN (Reason: muscle spasm) Qty: 15 0RF lidocaine [Lidoderm] 5 % adhesive patch,medicated 1 patch topical DAILY Qty: 15 0RF Rx Instructions: leave on most painful area for up to 12 hrs acetaminophen [Tylenol Extra Strength] 500 mg Tablet 1,500 mg PO Q6H PRN (Reason: Pain) naproxen sodium [Aleve] 220 mg Tablet 660 mg PO .Q4-6HRS PRN (Reason: Pain) Discharge Orders: Discharge Order (Routine); Ordered 12/11/23 Ordered By: Adrien Gomez Discharge Order- CHF (Routine); Ordered 12/11/23 Ordered By: Jose Mitchell Admission Data Admit Date/Time: 12/07/23 17:24 Attending Provider: Jose Mitchell Admit Provider: Gabino Sweeney Primary Care Provider: Smooth Allen Other Providers: Gabino Sweeney; Adrien Gomez; Jacey Lo Coding Level of Care Code 72411 INP/OBS DISCH >30 MIN Diagnoses Acute lumbar radiculopathy M54.16 Severe obstructive sleep apnea G47.33 Tobacco chew use Z72.0 Hypertension I10 Anxiety F41.9
== END 2023-12-11 14:36 | disposition home or self-care (01) | DRG 517 ==
LOC: ED 12:30 → 3W 17:24 → SUATTDRO 17:24 → 3W 18:26

== ENCOUNTER 2024-01-10 21:01 | Inpatient (IN) ==
[2024-01-10 21:51] LABS: Basophils # (auto) 0.06 K/uL (0.00-0.20); Basophils % (auto) 0.3 %; Eosinophils # (auto) 0.02 K/uL (0.00-0.50); Eosinophils % (auto) 0.1 %; Hematocrit (blood only) 42.3 % (42.0-52.0); Hemoglobin 14.3 g/dl (14.0-18.0); Immature Granulocytes # (auto) 0.22 K/uL (0.01-0.20); Immature Granulocytes % (auto) 1.1 %; Lymphocytes % (auto) 4.9 %; Mean Corpuscular Hemoglobin 27.1 pg (25.0-34.0); Mean Corpuscular Hgb Conc 33.8 g/dL (32.0-36.0); Mean Corpuscular Volume 80.3 fL (80.0-100.0); Mean Platelet Volume 9.1 fL (9.4-12.4); Monocytes % (auto) 7.8 %; Neutrophils # (auto) 17.66 K/uL (1.40-6.50); Neutrophils % (auto) 85.8 %; Platelet Count 238 K/uL (130-400); RDW Coefficient of Variation 13.8 % (11.5-14.5); RDW Standard Deviation 39.8 fL (36.4-46.3); Red Blood Count 5.27 M/uL (4.70-6.10); White Blood Count 20.56 K/ul (4.8-10.8)
[2024-01-10] MEDS: SODIUM CHLORIDE 0.9% 1,000 ML IV SCH (21:58)
[2024-01-10 22:02] LABS: Appearance Urine Turbid (Clear); Bacteria Urine Automated 4+ (None Seen); Bilirubin Urine Negative (Negative); Blood Urine 2+ (Negative); Color Urine Dark Yellow; Epithelial Cell Urine Auto 0-2 /hpf (0-2); Glucose Urine UA Negative (Negative); Ketones Urine Trace (Negative); Leukocyte Esterase Urine 2+ (Negative); Nitrite Urine Positive (Negative); Protein Urine 2+ (Negative); Specific Gravity Urine 1.024 (1.000-1.030); Urobilinogen Urine Negative (Negative); WBC Urine Automated >50 /hpf (0-5); pH Urine 5.5 (4.5-7.5)
[2024-01-10 22:11] LABS: BUN Creatinine Ratio 12.1 (10-20); Bilirubin Direct 0.4 mg/dl (0-0.2); Bilirubin,Total 1.4 mg/dl (0.2-1.0); Creatinine Clr Calc Pharmacy 54.5 ml/min; Est GFR (African American) 56.5 ml/min; Est GFR (Non-African American) 48.7 ml/min; Magnesium 1.6 mg/dl (1.7-2.4); Potassium 3.3 mmol/L (3.5-5.1); Total Protein 6.9 gm/dl (6.0-8.3)
[2024-01-10 22:18] LABS: Troponin I High Sensitivity 18.2 pg/ml (0-20)
[2024-01-10] MEDS: cefTRIAXone SODIUM 2,000 MG/50 ML BAG IV STA (22:38)
[2024-01-10] MEDS: SODIUM CHLORIDE 0.9% 1,000 ML IV ONE (22:38)
--- NOTE | 2024-01-10 22:38 | Emergency Department Note ---
Impression & Plan Sepsis, Hydronephrosis due to obstruction of ureter, Ureterolithiasis, Sepsis due to urinary tract infection ED Provider Note NAME: CORONA BRYANT AGE: 48 SEX: M : 1975 ARRIVES VIA: Walk-In INFORMANT: Patient ED PROVIDER(S): Marcelino Victoria MD CHIEF COMPLAINT: Fever, body aches, UTI. PLAN: Disposition: Admit MEDICAL DECISION MAKING: The patient is a pleasant 48 gentleman with a past medical history of hypertension, hyperlipidemia, recent admission to this facility at the beginning of November for lumbar radiculopathy, now status post lumbar decompression who presents to the emergency department accompanied by his for evaluation of frequency and burning with urination with fevers and bodyaches developing over the past 24 hours in the setting of having recently completed a 10-day course of Bactrim through his primary care doctor. Patient denies any cough, congestion, chest pain, shortness of breath. He reports generalized bodyaches and sweats. On my evaluation the patient is uncomfortable 100 distress, afebrile with heart rate in the 110s and blood pressure 140s/80s and vital signs otherwise stable. He appears clinically dry. He has no focal neurologic deficits. Neck is supple for range of motion. Abdomen is nontender. He has no CVA tenderness. WBC 20.5 K with neutrophil predominance and left shift, suspicious for bacterial infection. H/H and platelets within normal limits. Chemistry without metabolic acidosis. Creatinine 1.6, increased from recent baseline values. Magnesium 1.6 with IV repletion initiated. Total bilirubin 1.4 with direct bilirubin 0.4, nonspecific with LFTs otherwise unremarkable. Procalcitonin is elevated at 1.09, Dems consistent with concern for bacterial infection. UA is suggestive for infection with positive nitrites, WBCs and bacteria. CT of the abdomen pelvis demonstrates obstructing 1 cm right UPJ stone with mild right hydronephrosis with moderate perinephric stranding. Additional nonobstructing bilateral renal stones are seen. Given the patient's UTI with obstructing ureterolithiasis. Patient's initial empiric dose of ceftriaxone was broadened to cefepime. Patient received 30+ cc/kg of IV fluid hydration including 2 L normal saline and 1 L of lactated Ringer's. Case was discussed with Dr. Metzger, [facility] hospitalist, who will evaluate the patient for admission. Case was also discussed with Camilo Hernandez PA-C with urology on-call, Dr. Almeida who will take the patient to the OR [facility] for source control. Admitting team updated. Further management per admitting team. Triage Nursing notes reviewed and agree them. Prior/external medical records reviewed Vital Signs: reviewed Differential diagnosis: Renal colic, UTI, appendicitis, diverticulitis, mesenteric ischemia, aortic pathology, infections, inflammatory bowel disease, PUD, biliary pathology, as well as other pathologies. ER treatment provided: See below. Diagnostics interpreted by me: ECG: Sinus tachycardia, 112 bpm, no ectopy, no overt ST elevation or depression, QTc 453, QRS 90. Cardiac Monitoring: An order for continuous cardiac monitoring was placed and demonstrated Sinus tachycardia, 112 bpm, no ectopy. Laboratory studies: See below Imaging studies: See below Consultation(s): Camilo Hernandez PA-C with urology on-call, Dr. Almeida. Dr. Metzger, [facility] hospitalist. HPI: The patient is a pleasant 48 gentleman with a past medical history of hypertension, hyperlipidemia, recent admission to this facility at the beginning of November for lumbar radiculopathy, now status post lumbar decompression who presents to the emergency department accompanied by his for evaluation of frequency and burning with urination with fevers and bodyaches developing over the past 24 hours in the setting of having recently completed a 10-day course of Bactrim through his primary care doctor. Patient denies any cough, congestion, chest pain, shortness of breath. He reports generalized bodyaches and sweats. ROS: See above HPI for pertinent positives & negatives. A total of 10 systems reviewed and were otherwise negative. VITALS:See Below PHYSICAL EXAMINATION: GENERAL: Awake, alert, uncomfortable-appearing, in no distress, BMI 26.3. HENT: Normocephalic, atraumatic. Oropharynx with dry mucous membranes and otherwise unremarkable. EYES: Normal conjunctiva. Sclera non-icteric. NECK: Supple. No nuchal rigidity. FROM. No JVD. RESPIRATORY: Clear to auscultation. CARDIAC: CARDIAC: No chest pain, sweating, shortness of breath, leg swelling, or irregular heart beat. Rate, normal rhythm. Extremities warm and well perfused. Pulses equal. ABDOMEN: Soft, non-distended. No tenderness to palpation. No rebound or guarding. No masses. MUSCULOSKELETAL: Chest examination reveals no tenderness. The back is symmetrical on inspection without obvious abnormality. There is no CVA tenderness to palpation. No joint edema. LOWER EXTREMITIES: Calves are equal size bilaterally and non-tender. No edema. No discoloration. NEURO: Normal sensorium. No sensory or motor deficits noted. SKIN: No rash or jaundice noted. ED COURSE: Critical Care: I have personally spent greater than 45 minutes of critical care time in the direct management of this patient. This includes bedside care, interpretation of diagnostic studies, and testing, discussion with consultants, patient, and family members, and other required patient management activities. This 45 minutes is in excess of all separately billable procedures. 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 Nocturnal hypoxia Severe obstructive sleep apnea History of migraine Obesity Medial epicondylitis, left elbow Hypertension Surgical History Hx of wisdom tooth extraction Family History Father Myocardial infarction Stroke Denies family history of Ovarian cancer Prostate cancer Breast cancer Colorectal cancer Social History Smoking Status: Never smoker Tobacco Type: Smokeless Tobacco (Dip or Chew) Cigarettes Per Day: 1 can snuff daily; Do You Dip or Chew Tobacco: Yes; Hx Alcohol Use: No Hx Substance Use: No Preferred Language: Croatian Communication Ability: Effective Visual Impairment: No Limitations Hearing Ability: Normal Pourer Required: No Beliefs That Will Affect Care: None marital status: Current Living Situation: Family current occupational status: employed 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 How many Children do You have: 2 Feels Safe at Home: Yes Childhood Exposure to Second-Hand Smoke: No Diet: regular Diet Comment: regular caffeine: Yes during the past year weight has: remained stable Dental Care, Regularly: No Physical Activity Frequency: Daily Assistive Devices: Crutches and Walker Allergies Allergies Allergy/AdvReac Type Severity Reaction Status Date / Time No Known Allergies Allergy Verified 12/29/23 15:24 Home Meds Home Medications Medication Instructions Recorded Confirmed acetaminophen 500 mg tablet 1,000 mg PO Q6H PRN Pain 12/07/23 01/10/24 (Tylenol Extra Strength) naproxen sodium 220 mg tablet 660 mg PO .Q4-6HRS PRN Pain 12/07/23 01/10/24 (Aleve) metoprolol tartrate 50 mg tablet 50 mg PO BID 01/10/24 01/10/24 oxycodone 5 mg tablet 5 mg PO Q6 PRN Pain 01/10/24 01/10/24 tramadol 50 mg tablet 50 mg PO Q6 PRN Pain 01/10/24 01/10/24 Previous Rx's Medication Instructions Recorded losartan 100 mg tablet 50 mg (1/2 x 100 mg) PO BID #90 08/07/23 tabs BiPap Machine #1 ea 10/22/23 cyclobenzaprine 10 mg tablet 10 mg PO TID PRN muscle spasm #15 12/01/23 tabs Results & Data (ED) Vital Signs Vital Signs - 24 hr 01/10/24 21:09 01/10/24 21:33 01/10/24 22:39 Temperature 37.2 C 37 C Temperature Source Oral Oral Pulse Rate 119 H 114 H Pulse Rate [Apical] 113 H Pulse Rhythm [Apical] Regular Respiratory Rate 18 20 Respiratory Effort / Characteristics Non-Labored Spontaneous Respiratory Depth Normal Normal Respiratory Pattern Regular Blood Pressure 142/88 H Blood Pressure [Left Arm] 149/110 H Blood Pressure Mean 106 Blood Pressure Mean [Left Arm] 123 Blood Pressure Position Sitting Pulse Oximetry 95 96 Oxygen Delivery Method Room Air Room Air Sepsis Recent Fever Within 48 Hours Yes Sepsis New/Unexplained Change in Mental Status N/A Sepsis Action Taken by Nursing No Action Required 01/10/24 23:32 01/11/24 00:47 01/11/24 01:25 Temperature 37.4 C 37.6 C H Temperature Source Oral Oral Pulse Rate 123 H Pulse Rate [Apical] 115 H 122 H Pulse Rhythm [Apical] Regular Regular Respiratory Rate 22 22 Respiratory Effort / Characteristics Respiratory Depth Normal Respiratory Pattern Blood Pressure Blood Pressure [Left Arm] 127/85 151/104 H Blood Pressure Mean Blood Pressure Mean [Left Arm] 99 119 Blood Pressure Position Pulse Oximetry 97 95 Oxygen Delivery Method Room Air Room Air Sepsis Recent Fever Within 48 Hours Sepsis New/Unexplained Change in Mental Status Sepsis Action Taken by Nursing 01/11/24 02:06 Temperature 37.7 C H Temperature Source Oral Pulse Rate Pulse Rate [Apical] 118 H Pulse Rhythm [Apical] Regular Respiratory Rate 22 Respiratory Effort / Characteristics Respiratory Depth Respiratory Pattern Blood Pressure Blood Pressure [Left Arm] 122/82 Blood Pressure Mean Blood Pressure Mean [Left Arm] 95 Blood Pressure Position Pulse Oximetry Oxygen Delivery Method Room Air Sepsis Recent Fever Within 48 Hours Sepsis New/Unexplained Change in Mental Status Sepsis Action Taken by Nursing Laboratory Data Attestation: I reviewed the patient's lab results. 01/10/24 21:35 01/10/24 21:35 Lab Results 01/10/24 01/10/24 Range/Units 21:31 21:35 WBC 20.56 H (4.8-10.8) K/ul RBC 5.27 (4.70-6.10) M/uL Hgb 14.3 (14.0-18.0) g/dl Hct 42.3 (42.0-52.0) % MCV 80.3 (80.0-100.0) fL MCH 27.1 (25.0-34.0) pg MCHC 33.8 (32.0-36.0) g/dL RDW Std Deviation 39.8 (36.4-46.3) fL RDW Coeff of Naheed 13.8 (11.5-14.5) % Plt Count 238 (130-400) K/uL MPV 9.1 L (9.4-12.4) fL Immature Gran % (Auto) 1.1 % Neut % (Auto) 85.8 % Lymph % (Auto) 4.9 % [place] % (Auto) 7.8 % Eos % (Auto) 0.1 % Baso % (Auto) 0.3 % Neut # (Auto) 17.66 H (1.40-6.50) K/uL Lymph # (Auto) 1.00 L (1.20-3.40) K/uL [place] # (Auto) 1.60 H (0.11-0.59) K/uL Eos # (Auto) 0.02 (0.00-0.50) K/uL Baso # (Auto) 0.06 (0.00-0.20) K/uL Immature Gran # (Auto) 0.22 H (0.01-0.20) K/uL Sodium 139 (136-145) mmol/L Potassium 3.3 L (3.5-5.1) mmol/L Chloride 106 (98-107) mmol/L Carbon Dioxide 23 (21-32) mmol/L Anion Gap 10 (3-11) BUN 20 (6-23) mg/dl Creatinine 1.65 H (0.6-1.4) mg/dl Est Cr Clr Drug Dosing 54.5 ml/min Est GFR ( Amer) 56.5 ml/min Est GFR (Non-Af Amer) 48.7 ml/min BUN/Creatinine Ratio 12.1 (10-20) Glucose 151 H (70-99(Fasting)) mg/dl Lactate 1.6 (0.4-2.0) mmol/L Calcium 9.0 (8.6-10.3) mg/dl Magnesium 1.6 L (1.7-2.4) mg/dl Total Bilirubin 1.4 H (0.2-1.0) mg/dl Direct Bilirubin 0.4 H (0-0.2) mg/dl AST 11 L (13-39) U/L ALT 13 (7-52) U/L Alkaline Phosphatase 73 (34-104) U/L Troponin I High Sens 18.2 (0-20) pg/ml Total Protein 6.9 (6.0-8.3) gm/dl Albumin 4.0 (3.4-5.0) gm/dl Procalcitonin 1.09 H (0-0.5) ng/ml Urine Color Dark Yellow Urine Appearance Turbid A (Clear) Urine pH 5.5 (4.5-7.5) Ur Specific [place] 1.024 (1.000-1.030) Urine Protein 2+ H (Negative) Urine Glucose (UA) Negative (Negative) Urine Ketones Trace H (Negative) Urine Blood 2+ H (Negative) Urine Nitrite Positive A (Negative) Urine Bilirubin Negative (Negative) Urine Urobilinogen Negative (Negative) Ur Leukocyte Esterase 2+ H (Negative) Urine WBC (Auto) >50 H (0-5) /hpf Urine RBC (Auto) 11-20 H (0-2) /hpf U Hyaline Cast (Auto) 3-5 H (0-2) /lpf U Epithel Cells (Auto) 0-2 (0-2) /hpf Urine Bacteria (Auto) 4+ H (None Seen) Administered Medications Lactated Ringer's (Lr) 1,000 mls @ 125 mls/hr IV .Q8H YORDY Stop: 02/10/24 01:44 Last Admin: 01/11/24 05:48 Dose: 125 mls/hr Documented By: Infusion: 01/11/24 05:48 Dose: Infused Documented By: Admin: 01/11/24 02:24 Dose: 125 mls/hr Documented By: CRIS Acetaminophen (Ofirmev) 1,000 mg in 100 mls @ 400 mls/hr IV Q8H PRN PRN Reason: Pain or Fever Stop: 01/14/24 06:59 Last Admin: 01/11/24 05:47 Dose: 400 mls/hr Documented By: GAVIOTA Discontinued Medications Diatrizoate Meglumine (Diatrizoate Meglumine 30% 100ml Vial) 100 ml INSTIL ONCE ONE Stop: 01/11/24 03:56 Last Admin: 01/11/24 04:10 Dose: 80 ml Documented By: [id number] Sodium Chloride (Nss) 1,000 mls @ 999 mls/hr IV .Q1H1M [facility] Stop: 01/10/24 23:00 Last Infusion: 01/10/24 23:04 Dose: Infused Documented By: Admin: 01/10/24 21:58 Dose: 999 mls/hr Documented By: CRIS Sodium Chloride (Nss) 1,000 mls @ 999 mls/hr IV .Q1H1M ONE Stop: 01/10/24 23:25 Last Infusion: 01/10/24 23:30 Dose: Infused Documented By: Admin: 01/10/24 22:38 Dose: 999 mls/hr Documented By: CRIS Ceftriaxone Sodium (Rocephin) 2,000 mg in 50 mls @ 100 mls/hr IV NOW STA Stop: 01/10/24 22:54 Last Infusion: 01/10/24 23:04 Dose: Infused Documented By: Admin: 01/10/24 22:38 Dose: 100 mls/hr Documented By: CRIS Acetaminophen (Ofirmev) 1,000 mg in 100 mls @ 400 mls/hr IV NOW STA Stop: 01/11/24 00:33 Last Infusion: 01/11/24 00:47 Dose: Infused Documented By: Admin: 01/11/24 00:31 Dose: 400 mls/hr Documented By: CRIS Lactated Ringer's (Lr) 1,000 mls @ 999 mls/hr IV .Q1H1M ONE Stop: 01/11/24 01:53 Last Infusion: 01/11/24 02:36 Dose: Infused Documented By: Admin: 01/11/24 01:17 Dose: 999 mls/hr Documented By: CRIS Magnesium Sulfate/Dextrose (Magnesium Sulfate / D5w) 1 gm in 100 mls @ 100 mls/hr IV NOW STA Stop: 01/11/24 01:53 Last Infusion: 01/11/24 02:37 Dose: Infused Documented By: Admin: 01/11/24 01:16 Dose: 100 mls/hr Documented By: CRIS Cefepime HCl (Maxipime) 2,000 mg in 20 mls @ 5 mls/min IV NOW STA; Protocol Stop: 01/11/24 01:40 Last Admin: 01/11/24 01:46 Dose: 5 mls/min Documented By: CRIS Pantoprazole Sodium 40 mg/ (Syringe) 10 mls @ 5 mls/min IV NOW ONE Stop: 01/11/24 02:16 Last Admin: 01/11/24 02:24 Dose: 5 mls/min Documented By: CRIS Imaging Data Radiologist's Impression: Abdomen/Pelvis CT 01/10/24 22:25 Exam(s): CT ABDOMEN + PELVIS Without Contrast EXAM: CT Abdomen and Pelvis Without Intravenous Contrast CLINICAL HISTORY: Reason for exam: UTI, fever. TECHNIQUE: Axial computed tomography images of the abdomen and pelvis without intravenous contrast. CTDI is 28.14 mGy and DLP is 1451.1 mGy-cm. Automated exposure control was utilized for the study. A dose lowering technique was utilized adhering to the principles of ALARA. COMPARISON: No relevant prior studies available. FINDINGS: Lung bases: Unremarkable. No mass. No consolidation. ABDOMEN: Liver: Unremarkable. Gallbladder and bile ducts: Unremarkable. No calcified stones. No ductal dilation. Pancreas: Unremarkable. No ductal dilation. Spleen: Unremarkable. No splenomegaly. Adrenals: Unremarkable. No mass. Kidneys and ureters: Obstructing 1 cm RIGHT UPJ stone. Mild hydronephrosis of the RIGHT kidney with moderate perinephric stranding. Nonobstructing bilateral renal stones, preferentially involving LEFT kidney measuring approximately 3-4 mm in size. Stomach and bowel: Diverticulosis. No obstruction. No mucosal thickening. PELVIS: Appendix: No findings to suggest acute appendicitis. Bladder: Unremarkable. No stones. Normal urinary bladder. Reproductive: Unremarkable as visualized. ABDOMEN and PELVIS: Intraperitoneal space: Unremarkable. No free air. No significant fluid collection. Bones/joints: No acute fracture. No dislocation. Soft tissues: Unremarkable. Vasculature: Unremarkable. No abdominal aortic aneurysm. Lymph nodes: Unremarkable. No enlarged lymph nodes. IMPRESSION: 1. Obstructing 1 cm RIGHT UPJ stone. Mild hydronephrosis of the RIGHT kidney with moderate perinephric stranding. 2. Nonobstructing bilateral renal stones, preferentially involving LEFT kidney measuring approximately 3-4 mm in size. Electronically signed by: Gilbert Foster MD 01/11/24 01:07 AM Discharge Plan Visit Data Chief Complaint: Illness Stated Complaint: HEADACHE, FEVER, CHILLS - HX UTI AND S/P /15 ED Provider: Marcelino Victoria Discharge Problem: Sepsis, Hydronephrosis due to obstruction of ureter, Ureterolithiasis, Sepsis due to urinary tract infection Patient Disposition: Admitted As Inpatient Discharge Instructions Interventions: ED Discharge Assessment Last Done: 01/11/24 03:12 Discharge Problem: Sepsis Qualifiers: Sepsis type: sepsis due to unspecified organism Sepsis acute organ dysfunction status: with acute organ dysfunction Severe sepsis acute organ dysfunction type: acute renal failure Acute renal failure type: unspecified Severe sepsis shock status: without septic shock Qualified Code(s): A41.9 - Sepsis, unspecified organism
[2024-01-11] MEDS: ACETAMINOPHEN 1,000 MG/100 ML VIAL IV STA ×2 (00:31→06:36)
--- NOTE | 2024-01-11 01:08 | CT Scan Report ---
Exam(s): CT ABDOMEN + PELVIS Without Contrast EXAM: CT Abdomen and Pelvis Without Intravenous Contrast CLINICAL HISTORY: Reason for exam: UTI, fever. TECHNIQUE: Axial computed tomography images of the abdomen and pelvis without intravenous contrast. CTDI is 28.14 mGy and DLP is 1451.1 mGy-cm. Automated exposure control was utilized for the study. A dose lowering technique was utilized adhering to the principles of ALARA. COMPARISON: No relevant prior studies available. FINDINGS: Lung bases: Unremarkable. No mass. No consolidation. ABDOMEN: Liver: Unremarkable. Gallbladder and bile ducts: Unremarkable. No calcified stones. No ductal dilation. Pancreas: Unremarkable. No ductal dilation. Spleen: Unremarkable. No splenomegaly. Adrenals: Unremarkable. No mass. Kidneys and ureters: Obstructing 1 cm RIGHT UPJ stone. Mild hydronephrosis of the RIGHT kidney with moderate perinephric stranding. Nonobstructing bilateral renal stones, preferentially involving LEFT kidney measuring approximately 3-4 mm in size. Stomach and bowel: Diverticulosis. No obstruction. No mucosal thickening. PELVIS: Appendix: No findings to suggest acute appendicitis. Bladder: Unremarkable. No stones. Normal urinary bladder. Reproductive: Unremarkable as visualized. ABDOMEN and PELVIS: Intraperitoneal space: Unremarkable. No free air. No significant fluid collection. Bones/joints: No acute fracture. No dislocation. Soft tissues: Unremarkable. Vasculature: Unremarkable. No abdominal aortic aneurysm. Lymph nodes: Unremarkable. No enlarged lymph nodes. IMPRESSION: 1. Obstructing 1 cm RIGHT UPJ stone. Mild hydronephrosis of the RIGHT kidney with moderate perinephric stranding. 2. Nonobstructing bilateral renal stones, preferentially involving LEFT kidney measuring approximately 3-4 mm in size. Electronically signed by: Gilbert Foster MD 01/11/24 01:07 AM
[2024-01-11] MEDS: MAGNESIUM SULFATE / D5W 1 GM/100 ML BAG IV STA (01:16)
[2024-01-11] MEDS: LACTATED RINGER'S 1,000 ML IV ONE (01:17)
[2024-01-11] MEDS: CEFEPIME 2,000 MG/20 ML VIAL IV STA (01:46)
--- NOTE | 2024-01-11 01:54 | Urology Consultation ---
<Statement entered by Rashaad Almeida MD - 01/11/24 03:36> I have discussed Mr. Pan's case with Erasmo Hernandez PA-C and agree with the above documentation. Due to concern for urinary tract infection in the setting of an obstructing stone, we will plan for cystoscopy, retrograde pyelogram and right ureteral stent placement. I reviewed the risks and benefits of this procedure with the patient, including risks of bleeding, infection, injury to urinary tract, inability to place stent, and need for additional procedures. He expressed understanding and would like to proceed with surgery. -Rashaad Almeida MD. Date of Consultation January 11, 2024 Assessment & Plan (1) Nephrolithiasis: I discussed with the treating emergency room physician and the patient is being admitted to the hospital service. From a urologic perspective we recommend the following: Provide analgesics Provide antiemetics Provide antipyretics Patient has initially received Rocephin for antibiotics but this has been escalated to cefepime which should continue. Appropriate cultures have been sent and antibiotics be tailored based on these results Intravenous fluids for resuscitation should be provided. The treating emergency room physician has given 3 L of intravenous fluids as bolus doses and now has maintenance doses running at 125 cc/h Recommend keeping the patient n.p.o. for the present time Presently the patient is normotensive but he does have a tachycardia with a heart rate in the 120s. He also continues to be febrile. His white blood cell count is elevated and he has a slight increase in his creatinine. I discussed the case with my attending physician, Dr. Almeida, and he feels the patient should be taken to the operating room for cystoscopy with stent placement. I have notified the clinical coordinator and we will proceed with cystoscopy as soon as the OR time/staff is available Additional recommendations be forthcoming based on his clinical course as it unfolds History of Present Illness Reason for Consultation: Nephrolithiasis History of Present Illness This is a 48-year-old male who presented to the hospital secondary to fever. Patient reports that he had back surgery in November of this year and did quite well from the surgery however at the end of November he developed a urinary tract infection. A urine culture from 12/23/2023 revealed patient had an E. coli urinary tract infection which was pansensitive. Patient says that he completed a course of Bactrim but despite this therapy continues to feel ill. Last evening the patient developed fevers as high as 101.5. He denies any back pain. He does report a headache and some loose bowel movements. He has had nausea without vomiting. He says that he does not have any dysuria but notes his urine is foul-smelling and he specifically denies any hematuria. The patient does report that he has had a history of "bladder stones" in the past but he has passed them without procedural intervention. The patient notes that he has not had much to eat or drink over the past several days and since arrival to the emergency department has only had 1 small sip of rosi daniel. Since arrival to the hospital the patient has had labs and imaging which I independent reviewed. Chest x-ray did not appear to have any evidence of pneumonia. CT scan of the abdomen pelvis showed the patient had an obstructing kidney stone at the right ureteropelvic junction resulting in mild hydronephrosis with moderate perinephric stranding. CBC revealed white blood cell count was elevated at 20.5. Hemoglobin and hematocrit as well as the platelet count were normal. Chemistry profile showed sodium was normal his potassium was 3.3. BUN and creatinine were 20 and 1.6. Lactic acid level was nonelevated at 1.6. Urinalysis showed turbid urine which was positive for nitrites and had 2+ leukocyte Estrace. There were greater than 50 white blood cells per high-power field and 4+ bacteria on the study. At the time of my interview the patient was resting comfortably in bed he was no distress. Allergies Allergy/AdvReac Type Severity Reaction Status Date / Time No Known Allergies Allergy Verified 12/29/23 15:24 Home Medications Medication Instructions Recorded Confirmed Type losartan 100 mg tablet 50 mg (1/2 x 100 mg) PO BID #90 08/07/23 01/10/24 Rx tabs BiPap Machine #1 ea 10/22/23 01/10/24 Rx cyclobenzaprine 10 mg tablet 10 mg PO TID PRN muscle spasm #15 12/01/23 01/10/24 Rx tabs acetaminophen 500 mg tablet 1,000 mg PO Q6H PRN Pain 12/07/23 01/10/24 History (Tylenol Extra Strength) naproxen sodium 220 mg tablet 660 mg PO .Q4-6HRS PRN Pain 12/07/23 01/10/24 History (Aleve) metoprolol tartrate 50 mg tablet 50 mg PO BID 01/10/24 01/10/24 History oxycodone 5 mg tablet 5 mg PO Q6 PRN Pain 01/10/24 01/10/24 History tramadol 50 mg tablet 50 mg PO Q6 PRN Pain 01/10/24 01/10/24 History Patient History Surgical History Hx of wisdom tooth extraction Family History Father Myocardial infarction Stroke Denies family history of Ovarian cancer Prostate cancer Breast cancer Colorectal cancer Social History Smoking Status: Never smoker Tobacco Type: Smokeless Tobacco (Dip or Chew) Cigarettes Per Day: 1 can snuff daily; Do You Dip or Chew Tobacco: Yes; Hx Alcohol Use: No Hx Substance Use: No Preferred Language: Paraguayan Communication Ability: Effective Visual Impairment: No Limitations Hearing Ability: Normal Pharmacology Teacher Required: No Beliefs That Will Affect Care: None marital status: Current Living Situation: Family current occupational status: employed 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 How many Children do You have: 2 Feels Safe at Home: Yes Childhood Exposure to Second-Hand Smoke: No Diet: regular Diet Comment: regular caffeine: Yes during the past year weight has: remained stable Dental Care, Regularly: No Physical Activity Frequency: Daily Assistive Devices: Crutches and Walker Review of Systems Review of Systems: All systems reviewed & are unremarkable except as noted in HPI & below Physical Exam Constitutional: well developed and well nourished; no acute distress Eyes: no conjunctival abnormality ENMT: Ears: no hearing impairment and no external ear abnormality Mouth: no oropharynx abnormality Neck: trachea midline Respiratory: normal respiratory effort; no respiratory distress and no labored breathing Cardiovascular: Rate/Rhythm: regular rate, regular rhythm and + tachycardic Vessels: dorsalis pedis pulses present and radial pulses present Gastrointestinal (Abdomen): Abdomen is soft and nondistended. There is no pain with palpation and no rebound tenderness or guarding. Musculoskeletal: No calf tenderness Skin: no rashes Neurologic: moves all extremities Psychiatric: A+Ox3, euthymic affect Genitourinary: No CVA tenderness with percussion bilaterally Results & Data Vital Signs (Past 12 Hours) Vital Signs Temp Pulse Pulse Resp BP BP Pulse Ox 01/11/24 00:47 37.6 C H 122 H 22 151/104 H 95 01/10/24 23:32 37.4 C 115 H 22 127/85 97 01/10/24 22:39 37 C 113 H 20 149/110 H 96 01/10/24 21:33 114 H 01/10/24 21:09 37.2 C 119 H 18 142/88 H 95 O2 Del Method 01/11/24 00:47 Room Air 01/10/24 23:32 Room Air 01/10/24 22:39 Room Air 01/10/24 21:33 01/10/24 21:09 Room Air PG Care Time/CCT Total # of Minutes Spent Total Time Spent with Patient: Total time spent is greater than 50% in coordination of care (as documented) at patient's floor/unit and/or counseling patient: Coding Level of Care Code 72440 IN/OBS CONSULT LVL 5,80M Diagnoses Nephrolithiasis N20.0
[2024-01-11] MEDS ORDERED: METOPROLOL TARTRATE 1 MG/ML VIAL IV PRN (02:10)
--- NOTE | 2024-01-11 02:12 | History & Physical Report ---
Date of Service January 11, 2024 Assessment & Plan (1) Obstruction of right ureteropelvic junction (UPJ) due to stone: (2) Hydronephrosis, right: (3) Sepsis due to urinary tract infection: (4) Severe obstructive sleep apnea: (5) Hypertension: (6) Lumbar disc herniation with radiculopathy: Plan 1 cm right UPJ obstructing stone/mild right hydronephrosis/sepsis due to UTI- N.p.o. for urologic procedure While in the ED received normal saline 2 L fluid bolus along with 1 L LR Continue LR at 125 MLS per hour Follow urine culture and sensitivity History of pansensitive E. coli UTI 12/23/2023 treated with Bactrim Ceftriaxone 2 g IV daily Acetaminophen 1 g IV every 8 hours as needed for mild pain or fever Dilaudid 0.25 mg IV every 3 hours as needed for moderate to severe pain Consult urology Dr. Almeida Hypertension- Hold losartan 50 mg p.o. twice daily due to low blood pressure Continue metoprolol tartrate 50 mg twice daily in the a.m. due to increased heart rate Lopressor 5 mg IV every 4 hours as needed for heart rate greater than 110 Acute kidney injury superimposed on CKD- Creatinine 1.65, with base 1.23 Repeat laboratories in the a.m. Electrolyte disturbances/hypomagnesemia/hypokalemia- Magnesium 1.6 and potassium 3.3 on admission Replaced IV, recheck laboratories in a.m. Severe obstructive sleep apnea- BiPAP History of Present Illness Chief Complaint: The patient presents to the emergency department with history of E. coli UTI on 12/23/2023, treated with Bactrim, but he continues to feel generally unwell, and earlier this evening developed a temperature up to 101.5, without abdominal pain or pelvic pain Primary Care Provider: AMITA Prasad The patient is a 48-year-old male with past medical history including anxiety, tobacco chewing, lumbar disc herniation with radiculopathy status post surgery on 12/10/2023, pansensitive E. coli UTI on 12/23/2023, severe HOMER on BiPAP , obesity, nocturnal hypoxia and hypertension. The patient presents to the emergency department as noted above. Workup in the emergency department included a CT scan abdomen and pelvis which showed a 1 cm right UPJ obstructing stone with mild right hydronephrosis. Patient was seen by urology in the ED, who plans to take the patient to the OR as soon as a spot opens, due to the likely infected stone. Allergies Allergy/AdvReac Type Severity Reaction Status Date / Time No Known Allergies Allergy Verified 12/29/23 15:24 Home Medications Medication Instructions Recorded Confirmed Type losartan 100 mg tablet 50 mg (1/2 x 100 mg) PO BID #90 08/07/23 01/10/24 Rx tabs BiPap Machine #1 ea 10/22/23 01/10/24 Rx cyclobenzaprine 10 mg tablet 10 mg PO TID PRN muscle spasm #15 12/01/23 01/10/24 Rx tabs acetaminophen 500 mg tablet 1,000 mg PO Q6H PRN Pain 12/07/23 01/10/24 History (Tylenol Extra Strength) naproxen sodium 220 mg tablet 660 mg PO .Q4-6HRS PRN Pain 12/07/23 01/10/24 History (Aleve) metoprolol tartrate 50 mg tablet 50 mg PO BID 01/10/24 01/10/24 History oxycodone 5 mg tablet 5 mg PO Q6 PRN Pain 01/10/24 01/10/24 History tramadol 50 mg tablet 50 mg PO Q6 PRN Pain 01/10/24 01/10/24 History Past Med/Surg History Problem List (Updated 01/11/24 @ 04:35 by Shahzad Metzger MD) Sepsis due to urinary tract infection Hydronephrosis, right Obstruction of right ureteropelvic junction (UPJ) due to stone Ureterolithiasis (Acute) Hydronephrosis due to obstruction of ureter (Acute) Sepsis (Acute) Nephrolithiasis Anxiety Tobacco chew use 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 Nocturnal hypoxia Severe obstructive sleep apnea History of migraine Obesity Medial epicondylitis, left elbow Hypertension Surgical History Hx of wisdom tooth extraction Family History Father Myocardial infarction Stroke Denies family history of Ovarian cancer Prostate cancer Breast cancer Colorectal cancer Social History Smoking Status: Never smoker Tobacco Type: Smokeless Tobacco (Dip or Chew) Cigarettes Per Day: 1 can snuff daily; Do You Dip or Chew Tobacco: Yes; Hx Alcohol Use: No Hx Substance Use: No Preferred Language: Filipino Communication Ability: Effective Visual Impairment: No Limitations Hearing Ability: Normal Transfer Iron Operator Required: No Beliefs That Will Affect Care: None marital status: Current Living Situation: Family current occupational status: employed 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 How many Children do You have: 2 Feels Safe at Home: Yes Childhood Exposure to Second-Hand Smoke: No Diet: regular Diet Comment: regular caffeine: Yes during the past year weight has: remained stable Dental Care, Regularly: No Physical Activity Frequency: Daily Assistive Devices: Crutches and Walker Review of Systems Review of Systems: The patient denies chest pain, palpitations, shortness of breath, dyspnea on exertion, cough, lower extremity swelling, sore throat, chills, sweats, nausea, vomiting, diarrhea , constipation, abdominal pain, pelvic pain, blood in urine or stool, lightheadedness, dizziness, headache, memory loss, loss of consciousness, rash, abnormal bruising or bleeding, imbalance, focal weakness, numbness or tingling in arms or legs, generalized arthralgias or myalgias, neck pain, or night sweats. The review of systems is otherwise negative other than for that already noted above, and at least 10 systems have been reviewed. Physical Exam Physical Exam: The patient is awake, alert and oriented 3, well developed and well nourished, normocephalic and atraumatic, lying in bed and in no acute distress. HEENT--PERRL, EOMI, mucous membranes and oropharynx mildly dry. Neck--supple. No JVD. No bruits. Thyroid normal, trachea midline, no mignon nopathy. Heart--normal S1 and S2. No murmurs, rubs or gallops. Lungs--clear bilaterally, no respiratory distress, no accessory muscle use. Abdomen--normal bowel sounds and soft. Nontender. Nondistended. Extremities--no cyanosis or clubbing. No edema. Dermatologic--normal skin turgor, normal color, no abnormal lymph nodes, no rash. Neurologic--cranial nerves II through XII grossly intact. Rheumatologic--normal range of motion. Psychiatric--normal affect. Results & Data Results & Data Vital Signs (Past 12 Hours) Vital Signs Temp Pulse Pulse Resp BP BP Pulse Ox 01/11/24 02:06 37.7 C H 118 H 22 122/82 01/11/24 01:25 123 H 01/11/24 00:47 37.6 C H 122 H 22 151/104 H 95 01/10/24 23:32 37.4 C 115 H 22 127/85 97 01/10/24 22:39 37 C 113 H 20 149/110 H 96 01/10/24 21:33 114 H 01/10/24 21:09 37.2 C 119 H 18 142/88 H 95 O2 Del Method 01/11/24 02:06 Room Air 01/11/24 01:25 01/11/24 00:47 Room Air 01/10/24 23:32 Room Air 01/10/24 22:39 Room Air 01/10/24 21:33 01/10/24 21:09 Room Air Laboratory Results Laboratory Results WBC 20.56 K/ul (4.8-10.8) H 01/10/24 21:35 RBC 5.27 M/uL (4.70-6.10) 01/10/24 21:35 Hgb 14.3 g/dl (14.0-18.0) 01/10/24 21:35 Hct 42.3 % (42.0-52.0) 01/10/24 21:35 MCV 80.3 fL (80.0-100.0) 01/10/24 21:35 MCH 27.1 pg (25.0-34.0) 01/10/24 21:35 MCHC 33.8 g/dL (32.0-36.0) 01/10/24 21:35 RDW Std Deviation 39.8 fL (36.4-46.3) 01/10/24 21:35 RDW Coeff of Naheed 13.8 % (11.5-14.5) 01/10/24 21:35 Plt Count 238 K/uL (130-400) 01/10/24 21:35 MPV 9.1 fL (9.4-12.4) L 01/10/24 21:35 Immature Gran % (Auto) 1.1 % 01/10/24 21:35 Neut % (Auto) 85.8 % 01/10/24 21:35 Lymph % (Auto) 4.9 % 01/10/24 21:35 [place] % (Auto) 7.8 % 01/10/24 21:35 Eos % (Auto) 0.1 % 01/10/24 21:35 Baso % (Auto) 0.3 % 01/10/24 21:35 Neut # (Auto) 17.66 K/uL (1.40-6.50) H 01/10/24 21:35 Lymph # (Auto) 1.00 K/uL (1.20-3.40) L 01/10/24 21:35 [place] # (Auto) 1.60 K/uL (0.11-0.59) H 01/10/24 21:35 Eos # (Auto) 0.02 K/uL (0.00-0.50) 01/10/24 21:35 Baso # (Auto) 0.06 K/uL (0.00-0.20) 01/10/24 21:35 Immature Gran # (Auto) 0.22 K/uL (0.01-0.20) H 01/10/24 21:35 Sodium 139 mmol/L (136-145) 01/10/24 21:35 Potassium 3.3 mmol/L (3.5-5.1) L 01/10/24 21:35 Chloride 106 mmol/L (98-107) 01/10/24 21:35 Carbon Dioxide 23 mmol/L (21-32) 01/10/24 21:35 Anion Gap 10 (3-11) 01/10/24 21:35 BUN 20 mg/dl (6-23) 01/10/24 21:35 Creatinine 1.65 mg/dl (0.6-1.4) H 01/10/24 21:35 Est Cr Clr Drug Dosing 54.5 ml/min 01/10/24 21:35 Est GFR ( Amer) 56.5 ml/min 01/10/24 21:35 Est GFR (Non-Af Amer) 48.7 ml/min 01/10/24 21:35 BUN/Creatinine Ratio 12.1 (10-20) 01/10/24 21:35 Glucose 151 mg/dl (70-99(Fasting)) H 01/10/24 21:35 Lactate 1.6 mmol/L (0.4-2.0) 01/10/24 21:35 Calcium 9.0 mg/dl (8.6-10.3) 01/10/24 21:35 Magnesium 1.6 mg/dl (1.7-2.4) L 01/10/24 21:35 Total Bilirubin 1.4 mg/dl (0.2-1.0) H 01/10/24 21:35 Direct Bilirubin 0.4 mg/dl (0-0.2) H 01/10/24 21:35 AST 11 U/L (13-39) L 01/10/24 21:35 ALT 13 U/L (7-52) 01/10/24 21:35 Alkaline Phosphatase 73 U/L (34-104) 01/10/24 21:35 Troponin I High Sens 18.2 pg/ml (0-20) 01/10/24 21:35 Total Protein 6.9 gm/dl (6.0-8.3) 01/10/24 21: Albumin 4.0 gm/dl (3.4-5.0) 01/10/24 21:35 Procalcitonin 1.09 ng/ml (0-0.5) H 01/10/24 21: Urine Color Dark Yellow 01/10/24: Urine Appearance Turbid (Clear) A 01/10/24: Urine pH 5.5 (4.5-7.5) 01/10/24: Ur Specific [place] 1.024 (1.000-1.030) 01/10/24 21: Urine Protein 2+ (Negative) H 01/10/24: Urine Glucose (UA) Negative (Negative) 01/10/24 21: Urine Ketones Trace (Negative) H 01/10/24 21: Urine Blood 2+ (Negative) H 01/10/24 21: Urine Nitrite Positive (Negative) A 01/10/24: Urine Bilirubin Negative (Negative) 01/10/24 21: Urine Urobilinogen Negative (Negative) 01/10/24: Ur Leukocyte Esterase 2+ (Negative) H 01/10/24 21: Urine WBC (Auto) >50 /hpf (0-5) H 01/10/24 21: Urine RBC (Auto) 11-20 /hpf (0-2) H 01/10/24 21:31 U Hyaline Cast (Auto) 3-5 /lpf (0-2) H 01/10/24 21:31 U Epithel Cells (Auto) 0-2 /hpf (0-2) 01/10/24 21:31 Urine Bacteria (Auto) 4+ (None Seen) H 01/10/24 21:31 Impressions Abdomen/Pelvis CT 01/10/24 22:25 Exam(s): CT ABDOMEN + PELVIS Without Contrast EXAM: CT Abdomen and Pelvis Without Intravenous Contrast CLINICAL HISTORY: Reason for exam: UTI, fever. TECHNIQUE: Axial computed tomography images of the abdomen and pelvis without intravenous contrast. CTDI is 28.14 mGy and DLP is 1451.1 mGy-cm. Automated exposure control was utilized for the study. A dose lowering technique was utilized adhering to the principles of ALARA. COMPARISON: No relevant prior studies available. FINDINGS: Lung bases: Unremarkable. No mass. No consolidation. ABDOMEN: Liver: Unremarkable. Gallbladder and bile ducts: Unremarkable. No calcified stones. No ductal dilation. Pancreas: Unremarkable. No ductal dilation. Spleen: Unremarkable. No splenomegaly. Adrenals: Unremarkable. No mass. Kidneys and ureters: Obstructing 1 cm RIGHT UPJ stone. Mild hydronephrosis of the RIGHT kidney with moderate perinephric stranding. Nonobstructing bilateral renal stones, preferentially involving LEFT kidney measuring approximately 3-4 mm in size. Stomach and bowel: Diverticulosis. No obstruction. No mucosal thickening. PELVIS: Appendix: No findings to suggest acute appendicitis. Bladder: Unremarkable. No stones. Normal urinary bladder. Reproductive: Unremarkable as visualized. ABDOMEN and PELVIS: Intraperitoneal space: Unremarkable. No free air. No significant fluid collection. Bones/joints: No acute fracture. No dislocation. Soft tissues: Unremarkable. Vasculature: Unremarkable. No abdominal aortic aneurysm. Lymph nodes: Unremarkable. No enlarged lymph nodes. IMPRESSION: 1. Obstructing 1 cm RIGHT UPJ stone. Mild hydronephrosis of the RIGHT kidney with moderate perinephric stranding. 2. Nonobstructing bilateral renal stones, preferentially involving LEFT kidney measuring approximately 3-4 mm in size. Electronically signed by: Gilbert Foster MD 01/11/24 01:07 AM Code Status & VTE Plan Code Status Full code VTE Prophylaxis Plan VTE Prophylaxis will be ordered: Yes PG Care Time/CCT Total # of Minutes Spent Total Time Spent with Patient: Total time spent is greater than 50% in coordination of care (as documented) at patient's floor/unit and/or counseling patient: Coding Level of Care Code 07486 INT INP/OBS CARE 3/75MIN Diagnoses Obstruction of right ureteropelvic junction (UPJ) due to stone N20.1 Hydronephrosis, right N13.30 Sepsis due to urinary tract infection A41.9; N39.0 Severe obstructive sleep apnea G47.33 Hypertension I10 Lumbar disc herniation with radiculopathy M51.16
[2024-01-11] MEDS: LACTATED RINGER'S 1,000 ML IV SCH (02:24)
[2024-01-11] MEDS: PANTOprazole 40 MG in SYRINGE 0 ML IV ONE (02:24)
[2024-01-11] MEDS ORDERED: PROPOFOL IV EMULSION 10 MG/ML 20 ML VIAL IV ONE ×2 (03:15→04:58)
[2024-01-11] MEDS ORDERED: MIDAZOLAM HCL 1 MG/ML 2ML VIAL ONE (03:15)
[2024-01-11] MEDS ORDERED: fentaNYL citrate PF 100 MCG/2 ML VIAL ONE (03:15)
[2024-01-11] MEDS ORDERED: ONDANSETRON INJ 2 MG/ML 2 ML VIAL ONE (03:15)
[2024-01-11] MEDS ORDERED: LIDOCAINE 2% 2 ML VIAL/AMP(20MG/ML) INFIL ONE (03:15)
--- NOTE | 2024-01-11 03:20 | Anesthesiology Consultation ---
Date of Service January 11, 2024 Assessment & Plan Chart Review Chart Review: Acceptable Risk for Surgery and Patient NOT seen in Pre Admission Testing Consults Requested none ASA ASA2E Proposed Anesthesia Anesthesia Type: MAC Risk / Benefits Reviewed With: PT / POA / Parent / Guardian, Accepts Plan and Informed Consent Obtained History Surgery Operation Date: 01/11/24 02:50 Proposed Procedures p Ureteral Stent Insertion/Removal(Right) - Rashaad Almeida MD Height/Weight Height: 5 ft 8 in Weight: 78.5 kg Allergies Allergy/AdvReac Type Severity Reaction Status Date / Time No Known Allergies Allergy Verified 12/29/23 15:24 Medications Home Medications Medication Instructions Recorded Confirmed Last Taken losartan 100 mg tablet 50 mg (1/2 x 100 mg) PO BID #90 08/07/23 01/10/24 Unknown tabs BiPap Machine #1 ea 10/22/23 01/10/24 Unknown cyclobenzaprine 10 mg tablet 10 mg PO TID PRN muscle spasm #15 12/01/23 01/10/24 Unknown tabs acetaminophen 500 mg tablet 1,000 mg PO Q6H PRN Pain 12/07/23 01/10/24 Unknown (Tylenol Extra Strength) naproxen sodium 220 mg tablet 660 mg PO .Q4-6HRS PRN Pain 12/07/23 01/10/24 Unknown (Aleve) metoprolol tartrate 50 mg tablet 50 mg PO BID 01/10/24 01/10/24 Unknown oxycodone 5 mg tablet 5 mg PO Q6 PRN Pain 01/10/24 01/10/24 Unknown tramadol 50 mg tablet 50 mg PO Q6 PRN Pain 01/10/24 01/10/24 Unknown Active Medications Generic Name Dose Route Start Last Admin Trade Name Freq PRN Reason Stop Dose Admin Lactated Ringer's 1,000 mls @ 125 mls/hr 01/11/24 01:45 01/11/24 02:24 Lr IV 02/10/24 01:44 125 mls/hr .Q8H YORDY Administration NPO Date Last Intake of Fluids: 01/10/24 Time Last Intake of Fluids: 23:00 Date Last Intake of Solids: 01/09/24 Exercise / Class Metabolic Activity II 4-5 Yardwork/Stairs/Walk up hill Past Family History Family History Father Myocardial infarction Stroke Denies family history of Ovarian cancer Prostate cancer Breast cancer Colorectal cancer Past Surgical History Surgical History Hx of wisdom tooth extraction Past Anesthesia History No Hx of Anesthesia Complications and No Family Hx of Anesthesia Complications History of PONV No Hx of PONV and No Hx of Motion Sickness Social History Smoking Status: Never smoker Smoking cigarettes per day: 1 can snuff daily Do You Dip or Chew Tobacco: Yes Hx Alcohol Use: No Hx Substance Use: No Review of Systems ROS Unobtainable: All systems reviewed & are unremarkable except as noted in HPI & below Physical Exam Vital Signs Last Vital Signs Temp 37.7 C H 01/11/24 02:06 Pulse 118 H 01/11/24 02:06 Resp 22 01/11/24 02:06 BP 122/82 01/11/24 02:06 Pulse Ox 95 01/11/24 00:47 O2 Del Method Room Air 01/11/24 02:06 ENMT Mouth: no TMJ abnormality Thyromental Distance: > or= 3.5 Finger Breadths Mallampati Class: II Neck normal visual inspection and trachea midline; neck extension not limited Respiratory normal respiratory effort Auscultation: lungs clear to auscultation bilaterally Cardiovascular Rate/Rhythm: regular rate and regular rhythm Heart Sounds: no murmur Musculoskeletal Spine: normal cervical ROM Extremities: full ROM of extremities Neurologic moves all extremities Psychiatric Orientation: alert and oriented x 3 Testing Laboratory Results 01/10/24 21:35 01/10/24 21:35 Urine Color Dark Yellow 01/10/24 21:31 Urine Appearance Turbid (Clear) A 01/10/24 21:31 Urine pH 5.5 (4.5-7.5) 01/10/24 21:31 Ur Specific [place] 1.024 (1.000-1.030) 01/10/24 21:31 Urine Protein 2+ (Negative) H 01/10/24 21:31 Urine Glucose (UA) Negative (Negative) 01/10/24 21:31 Urine Ketones Trace (Negative) H 01/10/24 21:31 Urine Nitrite Positive (Negative) A 01/10/24 21:31 Ur Leukocyte Esterase 2+ (Negative) H 01/10/24 21:31 Urine WBC (Auto) >50 /hpf (0-5) H 01/10/24 21:31 Urine RBC (Auto) 11-20 /hpf (0-2) H 01/10/24 21:31 U Hyaline Cast (Auto) 3-5 /lpf (0-2) H 01/10/24 21:31 U Epithel Cells (Auto) 0-2 /hpf (0-2) 01/10/24 21:31 Urine Bacteria (Auto) 4+ (None Seen) H 01/10/24 21:31
[2024-01-11] MEDS ORDERED: ATROPINE SULFATE 0.1 MG/ML 10ML SYR IV PRN (03:33)
[2024-01-11] MEDS ORDERED: ONDANSETRON INJ 2 MG/ML 2 ML VIAL IV PRN (03:33)
[2024-01-11] MEDS ORDERED: fentaNYL citrate PF 100 MCG/2 ML VIAL IV PRN (03:33)
[2024-01-11] MEDS ORDERED: ePHEDrine sulfate 50 MG/ML AMP IV PRN (03:33)
[2024-01-11] MEDS: DIATRIZOATE MEGLUMINE 30% 100ML VIAL INSTIL ONE (04:10)
--- NOTE | 2024-01-11 04:38 | Operative Report ---
PG Post Operative Report Pre & Post Diagnosis Operation Date: 01/11/24 02:50 Pre-Op Diagnosis: Nephrolithiasis Post-Op Diagnosis: Nephrolithiasis I identified the patient and participated in the time-out.: Yes Procedure Operation Date: 01/11/24 02:50 Actual Procedures Cystoscopy, right retrograde pyelogram, right ureteral stent placement- Rashaad Almeida MD Surgeon Rashaad Almeida MD [employer] General Superintendent None Estimated Blood Loss 0 Findings See Below Right ureteral stent placed Specimens None Drains 6 Tanzanian by 26 cm double-J ureteral stent in the right ureter 18 Tanzanian coud catheter per urethra Complications MAC converted to general anesthesia, emergent intubation Indications This is a 48-year-old male who presented to the emergency department with a right UPJ stone and concerns for urinary tract infection. He is being brought to the OR for right ureteral stent placement to decompress the right kidney. Description of Procedure The patient was identified in the holding area and informed consent was confirmed. He was marked on the right side, then was taken to the operating room where MAC anesthesia was initiated. He was placed in the dorsal lithotomy position with all pressure points appropriately padded. He was prepped and draped in the usual sterile fashion and a preoperative timeout was performed. A well-lubricated cystoscope was inserted per urethra and panendoscopy was performed. The pendulous urethra was normal with no strictures or mucosal abnormalities. The prostate was somewhat enlarged with a high bladder neck. Bladder was somewhat challenging to visualize as there was some bleeding from the prostate. The right ureteral orifice was identified in orthotopic position. A 5 Tanzanian open-ended catheter was inserted and used to intubate the right ureteral orifice. A retrograde pyelogram was performed using Cystografin. There was hydronephrosis of the right kidney. A 0.038 inch zip wire was advanced up to the kidney under fluoroscopic guidance. An appropriate curl was visualized in the kidney. A 6 Tanzanian x 26 cm double-J ureteral stent was obtained and advanced over the wire. During this process, he began to have an oxygen desaturation. The proximal curl of the stent was seen in the kidney on x-ray. At this point he required emergent conversion to intubation. The wire and all instrumentation was removed, deploying the stent in the process. Once intubation was completed and the airway was secure, the proximal portion of the stent appeared to be in good position on x-ray. The bladder curl seemed like it may be within the prostatic urethra. I elected to try to push this back into the bladder with a Monreal catheter. The penis was reprepped with Betadine. A well-lubricated 18 Tanzanian coud catheter was advanced per urethra. With the catheter in position, the distal curl seem to have somewhat straightened out, but the proximal curl remained in good position. It appeared that the stent was bypassing the stone on x-ray. Satisfied that the stent was bypassing the obstruction, I concluded the procedure. If needed, the distal curl can be repositioned cystoscopically. The patient was then awakened from anesthesia and was brought to the ICU for PACU care in stable condition. I attest to the content of the Intraoperative Record and any orders documented therein. Any exceptions are noted below.
[2024-01-11] MEDS ORDERED: ESMOLOL HCL INJ 10 MG/ML 10ML VIAL IV ONE (04:57)
[2024-01-11] MEDS ORDERED: SUCCINYLCHOLINE 100MG/5ML SYR IV ONE (04:58)
--- NOTE | 2024-01-11 05:27 | Anesthesiology Progress Note ---
Date of Service January 11, 2024 Anesthesia Post Procedure Vital Signs Vital Signs: Temp Pulse Pulse Resp BP BP BP 01/11/24 05:10 122 H 19 119/84 01/11/24 05:00 121 H 20 113/87 01/11/24 04:50 36.3 C L 121 H 22 115/81 01/11/24 02:06 37.7 C H 118 H 22 122/82 01/11/24 01:25 123 H 01/11/24 00:47 37.6 C H 122 H 22 151/104 H 01/10/24 23:32 37.4 C 115 H 22 127/85 01/10/24 22:39 37 C 113 H 20 149/110 H 01/10/24 21:33 114 H 01/10/24 21:09 37.2 C 119 H 18 142/88 H Pulse Ox O2 Del Method O2 Flow Rate 01/11/24 05:10 97 Oxymask 4 01/11/24 05:00 97 Oxymask 9 01/11/24 04:50 98 Oxymask 9 01/11/24 02:06 Room Air 01/11/24 01:25 01/11/24 00:47 95 Room Air 01/10/24 23:32 97 Room Air 01/10/24 22:39 96 Room Air 01/10/24 21:33 01/10/24 21:09 95 Room Air Transfer of Care Handoff Completed per policy Notes Mental Status: alert / awake / arousable Patient Amnestic to Procedure: Yes Nausea / Vomiting: adequately controlled Pain: adequately controlled Airway Patency, RR, SpO2: stable & adequate BP & HR: stable & adequate Hydration State: stable & adequate Anesthetic Complications: no major complications apparent and Pt Satisfied with anesthetic care Notes: At cessation of case, patient began to obstruct despite efforts at oral airway placement and jaw thrust. Pulse ox not reading, jeff to left hand and O2 sat 30%. Unable to mask ventilate with 2 hand ventilation. Called for glidescope, adminsitered propofol and succ and intubation attempt challenging resulting in esophageal intubation and no etco2. I attempted intubation subsequently and with challenge, was able to secure airway. Lowest O2 sat read 11% for <1 minute. O2 sats improved. Monitored patient in OR while anethesia wore off. Vitals stable. patient successfully extubated and transitioned to simple mask and transported to PACU. Neurologically intact, b/l breath sounds, stable hemodynamics ad oygenation. Will admit to PCU. Of note - glide scope 4 visualization challenging due to edema and redundant tissue. I suspect with ramping and a more controlled induction, asleep glidescope intubation would be OK future plan with bougie and difficult airway equipment available. For future sedations, would be cautious of midazolam/fentanyl administration given severity of his HOMER and non-compliant treatment. Would strongly. consider ketamine or respiratory involvement for HFNC or bipap.
[2024-01-11] MEDS: ACETAMINOPHEN 1,000 MG/100 ML VIAL IV PRN (05:47)
--- NOTE | 2024-01-11 07:39 | Fluoroscopy Report ---
FL retrograde includes kub CLINICAL HISTORY: RT STENT/RETROright-sided cystourethrogram COMPARISON STUDY: CT 01/10/2024 FLUOROSCOPY TIME: 8.6 seconds FLUOROSCOPY IMAGES: 3 EXPOSURE DOSE: 3.77 mGy FINDINGS: Status post placement of a right ureteral stent which appears to be in satisfactory positio dustin. IMPRESSION: Fluoroscopic assistance as above. ACT 112: Negative or not required by law. Electronically signed by: Mikey Bahena M.D. 01/11/2024 7:37 AM
--- NOTE | 2024-01-11 07:51 | XRay Report ---
XR chest 1V portable HISTORY: 48 years-old Male Sepsis acute sepsis COMPARISON: None TECHNIQUE: AP view of the chest FINDINGS: Azygos lobe and fissure. Cardiomediastinal and hilar silhouettes are within normal limits. No pneumot horax, pleural effusion, airspace consolidation or pulmonary edema. Bones appear grossly intact. IMPRESSION: No acute process. ACT 112: Negative or not required by law. The above report was generated using voice recognition software. It may contain grammatical, syntax o r spelling errors. Electronically signed by: Mikey Bahena M.D. 01/11/2024 7:50 AM
--- NOTE | 2024-01-11 08:02 | Hospitalist Progress Note ---
Date of Service January 11, 2024 Assessment & Plan (1) Hydronephrosis, right: (2) Obstruction of right ureteropelvic junction (UPJ) due to stone: (3) Sepsis due to urinary tract infection: Plan 1) Kidney stone 1 cm right UPJ obstructing stone/mild right hydronephrosis/sepsis due to UTI- - was NPO for urologic procedure - Received normal saline 2 L fluid bolus along with 1 L LR in ED - Continue LR at 125 MLS per hour Acetaminophen 1 g IV every 8 hours as needed for mild pain or fever Dilaudid 0.25 mg IV every 3 hours as needed for moderate to severe pain Phenazopyridine, 200 mg, PO, TID, PRN for moderate to severe urinary tract pain Consulted urology Dr. Almeida --> right ureteral stent placed this morning - Pt will F/U as outpt to receive shock wave lithotripsy for further kidney stone Tx 2) UTI/Likely urosepsis - on admission WBC, 20.6 (86% neutrophils); HR, 119 --> met SIRS criteria - Temp of 37.9C 3.5 hrs after 1000 mg Tylenol, IV today - Follow urine Cx and sensitivity (Hx of pansensitive E. coli UTI 12/23/2023 treated with Bactrim), blood Cx and sensitivities - UA: Ur blood, 2+; Ur nitrite, pos; Ur LE, pos; Ur WBC, > 50; Ur Estevan, 4+ indicating UTI at very least - Ceftriaxone 2 g IV daily 3)Hypertension Hold losartan 50 mg, PO, BID due to low BP, ANA Continue metoprolol tartrate 50 mg, BID this morning for BP control, increased HR Lopressor 5 mg IV every 4 hours as needed for heart rate greater than 110 4) Acute kidney injury superimposed on CKD Creatinine 1.65, with (baseline 1.23) 5) Electrolyte disturbances/hypomagnesemia/hypokalemia- Magnesium 1.6 and potassium 3.3 on admission --> Replaced IV - 40 mEq KCl ordered - BMP, Mg AM labs tomorrow 6) Severe obstructive sleep apnea- BiPAP Code status: Full Disposition: PCU-Telemetry DVT Prophylaxis: SCDs SHANIAI: Regular diet Admission and Anticipated Discharge Date Admission Date: January 11, 2024 Supervising Physician Co-Signing Physician Notes I personally examined the patient and verified ascencio points of history and exam, discussed case, and agree with decision making and plan documented by Dr. Yoo. Patient postop day 0 status post right ureteral stent placement for obstructing right UPJ stone. He remains on ceftriaxone and fluids, awaiting cultures. Pain is controlled. BiPAP ordered. Patient appears comfortable, lungs clear b/l to anterior auscultation, regular rate and rhythm, no acute distress. Subjective Chief Complaint: The patient presents to the emergency department with history of E. 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 coli UTI on 12/23/2023, severe HOMER on BiPAP , obesity, nocturnal hypoxia and hypertension. The patient presents to the emergency department as noted above. Workup in the emergency department included a CT scan abdomen and pelvis which showed a 1 cm right UPJ obstructing stone with mild right hydronephrosis. Patient was seen by urology in the ED, who plans to take the patient to the OR as soon as a spot opens, due to the likely infected stone. Review of Systems Constitutional: + fever, + chills, + fatigue and + malai se Respiratory: no cough, no chest congestion and no dyspnea Cardiovascular: no chest pain and no palpitations Gastrointestinal: no nausea and no vomiting Genitourinary: + dysuria and + difficulty urinating Neurologic: no tingling and no numbness Physical Exam Constitutional: WD/WN, vitals as above Respiratory: normal respiratory effort, lungs clear to auscultation Cardiovascular: RRR, no murmur, no edema Gastrointestinal (Abdomen): Inspection/Auscultation: normal bowel sounds Percussion/Palpation: abdomen soft; abdomen nontender Psychiatric: A+Ox3, euthymic affect Results & Data Results & Data Vital Signs (Past 12 Hours) Vital Signs Temp Pulse Pulse Resp BP BP BP 01/11/24 07:08 37 C 109 H 19 117/82 01/11/24 06:21 01/11/24 06:21 36.9 C 109 H 21 113/81 01/11/24 06:05 36.7 C 114 H 17 103/74 01/11/24 05:55 117 H 01/11/24 05:46 36.8 C 116 H 18 118/79 01/11/24 05:20 37.2 C 123 H 20 115/88 01/11/24 05:10 122 H 19 119/84 01/11/24 05:00 121 H 20 113/87 01/11/24 04:50 36.3 C L 121 H 22 115/81 01/11/24 02:06 37.7 C H 118 H 22 122/82 01/11/24 01:25 123 H 01/11/24 00:47 37.6 C H 122 H 22 151/104 H 01/10/24 23:32 37.4 C 115 H 22 127/85 01/10/24 22:39 37 C 113 H 20 149/110 H 01/10/24 21:33 114 H 01/10/24 21:09 37.2 C 119 H 18 142/88 H Pulse Ox O2 Del Method O2 Flow Rate 01/11/24 07:08 97 Nasal Cannula 2 01/11/24 06:21 Nasal Cannula 2 01/11/24 06:21 97 Nasal Cannula 2 01/11/24 06:05 94 Nasal Cannula 2 01/11/24 05:55 01/11/24 05:46 94 Nasal Cannula 2 01/11/24 05:20 94 Nasal Cannula 2 01/11/24 05:10 97 Oxymask 4 01/11/24 05:00 97 Oxymask 9 01/11/24 04:50 98 Oxymask 9 01/11/24 02:06 Room Air 01/11/24 01:25 01/11/24 00:47 95 Room Air 01/10/24 23:32 97 Room Air 01/10/24 22:39 96 Room Air 01/10/24 21:33 01/10/24 21:09 95 Room Air Resident Activity Tracking Resident Involvement: Resident Care Provided Care Provided: Adult Hospital Medicine
[2024-01-11] MEDS: METOPROLOL TARTRATE 50 MG TAB PO SCH (12:23)
[2024-01-11] MEDS: LIDOCAINE 2% JELLY 5 ML TUBE EXT ONE (12:46)
[2024-01-11] MEDS: CHLORASEPTIC (PHENOL) 1.4% SOLN 180 ML BTL MT PRN (12:47)
[2024-01-11] MEDS: HYDROmorphone INJ 0.5 MG/0.5 ML SYR IV PRN (12:56)
[2024-01-11] MEDS: PANTOprazole 40 MG in SYRINGE 0 ML IV SCH (14:31)
--- NOTE | 2024-01-11 14:52 | Electrocardiogram Report ---
Test Reason : Blood Pressure : / mmHG Vent. Rate : 112 BPM Atrial Rate : 112 BPM P-R Int : 170 ms QRS Dur : 090 ms QT Int : 332 ms P-R-T Axes : 047 -31 050 degrees QTc Int : 453 ms Sinus tachycardia Left axis deviation Abnormal ECG When compared with ECG of 08-DEC-2023 12:50, Nonspecific T wave abnormality now evident in Anterior leads Confirmed by Alexey Dumont ([id number]) on 01/11/2024 2:51:45 PM Referred By: REFERRED SELF Confirmed By:Alexey Dumont
[2024-01-11] MEDS: PHENAZOPYRIDINE HCL 200 MG TAB PO PRN (15:50)
[2024-01-11] MEDS: POTASSIUM CHLORIDE CRTAB 20 MEQ TABCR PO STA (18:34)
[2024-01-11 19:20] LABS: BUN Creatinine Ratio 11.5 (10-20); Calcium 8.1 mg/dl (8.6-10.3); Est GFR (African American) 52.9 ml/min; Est GFR (Non-African American) 45.7 ml/min; Potassium 3.6 mmol/L (3.5-5.1)
[2024-01-11] MEDS: cefTRIAXone SODIUM 2,000 MG/50 ML BAG IV SCH (20:32)
[2024-01-11] MEDS: HEPARIN SOD 5,000 UNIT/0.5 ML VIAL SQ SCH (20:32)
[2024-01-11] MEDS ORDERED: NON-FORMULARY MEDICATION (Bipap Machine misc) SCH (21:00)
--- NOTE | 2024-01-12 06:59 | Hospitalist Progress Note ---
Date of Service January 12, 2024 Assessment & Plan (1) Hydronephrosis, right: (2) Obstruction of right ureteropelvic junction (UPJ) due to stone: (3) Sepsis due to urinary tract infection: Plan 1) Kidney stone/ s/p ureteral stent/ incontinence 1 cm right UPJ obstructing stone/mild right hydronephrosis/sepsis due to UTI- - was NPO for urologic procedure - Received normal saline 2 L fluid bolus along with 1 L LR in ED - Continue LR at 125 MLS per hour Acetaminophen 1 g IV every 8 hours as needed for mild pain or fever Dilaudid 0.25 mg IV every 3 hours as needed for moderate to severe pain --> consider changing to [facility] Phenazopyridine, 200 mg, PO, TID, PRN for moderate to severe urinary tract pain --> changed to [facility] Consulted urology Dr. Almeida --> right ureteral stent placed morning of 01/11/24, appreciate further recommendations regarding incontinence - Pt will F/U as outpt to receive shock wave lithotripsy for further kidney stone Tx 2) UTI/Likely urosepsis - on admission WBC, 20.6 (86% neutrophils); HR, 119 --> met SIRS criteria - Temp of 37.9C 3.5 hrs after 1000 mg Tylenol, IV today - Urine Cx and sensitivity (Hx of pansensitive E. coli UTI 12/23/2023 treated with Bactrim) shows gram neg bacilli, sensitivities pending - Blood Cx and sensitivities, negative after 24 hrs - UA: Ur blood, 2+; Ur nitrite, pos; Ur LE, pos; Ur WBC, > 50; Ur Estevan, 4+ indicating UTI at very least - Ceftriaxone 2 g IV daily --> consider broadening coverage if patient continues to have systemic symptoms 3)Hypertension Hold losartan 50 mg, PO, BID due to low BP, ANA Continue metoprolol tartrate 50 mg, BID this morning for BP control, increased HR Lopressor 5 mg IV every 4 hours as needed for heart rate greater than 110 4) Acute kidney injury superimposed on CKD Creatinine, 1.49 <-- 1.74 <-- 1.65, with (baseline 1.23) 5) Electrolyte disturbances/hypomagnesemia/hypokalemia- # resolved - Magnesium 1.6 and potassium 3.3 on admission --> Replaced IV - Repeat K, 3.8 and Mg, 1.9 - BMP, Mg AM labs daily 6) Headache - exam suggests cervical and levator scapulae pain, consistent with muscle tension, tension headache - patient given Fioricet, q6hr, PRN for pain 7) Severe obstructive sleep apnea- patient on O2 at night instead of BiPAP Code status: Full Disposition: PCU-Telemetry DVT Prophylaxis: SCDs, subQ Hep FENGI: Regular diet Admission and Anticipated Discharge Date Admission Date: January 11, 2024 Subjective Chief Complaint: The patient presents to the emergency department with history of E. 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 coli UTI on 12/23/2023, severe HOMER on BiPAP , obesity, nocturnal hypoxia and hypertension. The patient presents to the emergency department as noted above. Workup in the emergency department included a CT scan abdomen and pelvis which showed a 1 cm right UPJ obstructing stone with mild right hydronephrosis. Patient was seen by urology in the ED, who plans to take the patient to the OR as soon as a spot opens, due to the likely infected stone. Review of Systems Constitutional: + fever, + chills, + fatigue and + malai se Respiratory: no cough, no chest congestion and no dyspnea Cardiovascular: no chest pain and no palpitations Gastrointestinal: + abdominal pain (diffuse abdominal pain ); no nausea and no vomiting Genitourinary: + dysuria and + difficulty urinating Neurologic: + headache(s); no tingling and no numbne ss Physical Exam Constitutional: WD/WN, vitals as above Respiratory: normal respiratory effort, lungs clear to auscultation Cardiovascular: RRR, no murmur, no edema Gastrointestinal (Abdomen): Inspection/Auscultation: normal bowel sounds Percussion/Palpation: + abdomen tender (diffuse tenderness) and abdomen soft Psychiatric: A+Ox3, euthymic affect Results & Data Results & Data Vital Signs (Past 12 Hours) Vital Signs Temp Pulse Pulse Resp BP Pulse Ox O2 Del Method 01/12/24 03:27 36.9 C 105 H 18 115/76 93 Room Air 01/11/24 22:28 36.6 C 90 18 135/84 98 BiPAP 01/11/24 22:01 93 H 01/11/24 20:54 Room Air 01/11/24 19:09 37.4 C 114 H 20 145/92 H 92 Room Air
[2024-01-12 07:15] LABS: Basophils # (auto) 0.04 K/uL (0.00-0.20); Basophils % (auto) 0.3 %; Eosinophils # (auto) 0.13 K/uL (0.00-0.50); Hematocrit (blood only) 35.4 % (42.0-52.0); Hemoglobin 11.7 g/dl (14.0-18.0); Immature Granulocytes # (auto) 0.12 K/uL (0.01-0.20); Immature Granulocytes % (auto) 0.9 %; Lymphocytes # (auto) 1.47 K/uL (1.20-3.40); Lymphocytes % (auto) 10.9 %; Mean Corpuscular Hemoglobin 26.8 pg (25.0-34.0); Mean Corpuscular Hgb Conc 33.1 g/dL (32.0-36.0); Mean Platelet Volume 9.6 fL (9.4-12.4); Monocytes # (auto) 1.14 K/uL (0.11-0.59); Monocytes % (auto) 8.5 %; Neutrophils # (auto) 10.56 K/uL (1.40-6.50); Neutrophils % (auto) 78.4 %; Platelet Count 219 K/uL (130-400); RDW Coefficient of Variation 14.3 % (11.5-14.5); RDW Standard Deviation 42.2 fL (36.4-46.3); Red Blood Count 4.37 M/uL (4.70-6.10); White Blood Count 13.46 K/ul (4.8-10.8)
[2024-01-12 07:29] LABS: Albumin Level 3.1 gm/dl (3.4-5.0); BUN Creatinine Ratio 12.8 (10-20); Calcium 8.5 mg/dl (8.6-10.3); Creatinine Clr Calc Pharmacy 82.7 ml/min; Est GFR (African American) 63.9 ml/min; Est GFR (Non-African American) 55.1 ml/min; Magnesium 1.9 mg/dl (1.7-2.4); Potassium 3.8 mmol/L (3.5-5.1)
--- NOTE | 2024-01-12 07:36 | Hospitalist Progress Note ---
Date of Service January 12, 2024 Assessment & Plan (1) Hydronephrosis, right: Plan: Mr. Pan is a 48 year old male with a PMHx of HTN, HLD, lumbar radiculopathy s/p lumbar decompression, and severe HOMER with BIPAP, who is being evaluated for urinary frequency/burning, fevers, body aches, and diaphoresis. He was found to have urosepsis and hydronephrosis secondary to ureter obstruction. He is 1 day s/p right ureteral stent placement. Kidney stone -1 cm right UPJ obstructing stone/mild right hydronephrosis/sepsis due to UTI- - s/p normal saline 2 L fluid bolus along with 1 L LR in ED -Urology consulted, right ureteral stent placed 01/10 * Continue LR at 125 MLS per hour * Dilaudid 0.25 mg IV Q3H PRN For moderate to severe pain. Phenazopyridine 200 mg, PO, TID, PRN for moderate to severe urinary tract pain. Acetaminophen 1 g IV every 8 hours PRN for mild pain or fever. * F/U outpatient for shock wave lithotripsy UTI/Likely urosepsis - On admission: WBC, 20.6 (86% neutrophils); HR, 119. Met SIRS criteria - WBC trending downward. Temp WNL. Mildly tachycardic and hypertensive. - Urine culture positive for gram neg bacilli. Sensitivities pending. - Blood Cx and sensitivities, negative after 24 hrs - UA: Ur blood, 2+; Ur nitrite, pos; Ur LE, pos; Ur WBC, > 50; Ur Estevan, 4+ indicating UTI at very least * Ceftriaxone 2 g IV daily. Consider alternatives based on sensitivities results Hypertension -Hold losartan 50 mg, PO, BID due to ANA * Continue metoprolol tartrate 50 mg, BID this morning for BP control and increased HR * Lopressor 5 mg IV Q4H PRN for HR greater than 110 Acute kidney injury superimposed on CKD -Baseline 1.23 -Trending downward * Continue to trend Hypomagnesemia -Magnesium 1.6 on admission -s/p IV replacement * Continue to trend Hypokalemia -Potassium 3.3 on admission -s/p IV replacement * Continue to trend Severe obstructive sleep apnea -BiPAP Code status: Full Disposition: PCU-Telemetry DVT Prophylaxis: Heparin (01/10) FENGI: Regular diet (2) Obstruction of right ureteropelvic junction (UPJ) due to stone: (3) Sepsis due to urinary tract infection: Admission and Anticipated Discharge Date Admission Date: January 11, 2024 Supervising Physician Co-Signing Physician Notes I personally examined the patient and verified all ascencio points of history and exam, discussed case, and agree with decision making with Dr Yoo and Jania Payne MS4 headache, some chills and sweats. Abdominal painalthough different than before and more diffuse. Vitals noted, in general he is awake and alert pleasant but appears mildly ill. HEENT normocephalic atraumatic mucous membranes moist. Right greater than left suboccipitals high tone, tender, decreased range of motioninhibitory pressurepatient tolerated well. Abdomen soft moderately distended mild diffuse tenderness no guarding rebound or rigidity. Skin without rashes pallor or icterus. Ureterolithiasis with superimposed urinary tract infection and subsequent sepsisnow temporized status post cystoscopy and stenting. Continue ceftriaxonehis previous cultures have been pansensitiveand it might just be his resolving sepsis as far as still feeling lousy and still having constitutional symptoms; at the same time I am would not be surprised if we need to adjust his antibiotic coverage. Appreciate urology input. Headache/cervical somatic dysfunctionOMT as above abdominal painseems to be more due to constipationshe notes no bowel movements for about 3 days. MiraLAX. DVT prophylaxisheparin subcu otherwise as above Subjective Patient fell asleep intermittently during H&P, history was mostly obtained from at bedside. Pain control: Reports right sided abdominal pain, pain in groin, penile pain. He is also having tongue and throat pain, which have limited his ability to eat food. Tolerating diet: Able to drink but not eat, as above. Nausea, vomiting: none Out of bed: Unable to ambulate yet, has been intermittently sleeping since the surgery. He has a history of "bladder stones," which have not been officially evaluated. He treats them at home with cranberry juice and passes small back stones. Catheter in place. Per , urology plans to take it out today. Review of Systems 2 Review of Systems: See HPI, otherwise negative Physical Exam 2 Physical Exam: Constitutional: Fatigued-appearing, no acute distress HEENT: NCAT, no conjunctival injection, no scleral icterus CV: Regular rate and rhythm, no murmur appreciated, extremities well-perfused, no LE edema Resp: CTABL, no wheezes/rales/rhonchi appreciated, no increased work of breathing GI: soft, nondistended, nontender, BS normoactive. Renal: Monreal catheter in place, actively draining yellow-orange urine. MSK: no gross deformities appreciated Skin: warm and diaphoretic, no rash appreciated Neuro: alert, oriented, no focal neurologic deficits appreciated Results & Data Results & Data Vital Signs (Past 12 Hours) Vital Signs Temp Pulse Pulse Resp BP Pulse Ox O2 Del Method 01/12/24 03:27 98.4 F 105 H 18 115/76 93 Room Air 01/11/24 22:28 97.9 F 90 18 135/84 98 BiPAP 01/11/24 22:01 93 H 01/11/24 20:54 Room Air Laboratory Results 01/12/24 06:42 01/12/24 06:42 Diagnostic Findings FL retrograde includes kub Status post placement of a right ureteral stent which appears to be in satisfactory positioning. CT ABDOMEN + PELVIS Without Contrast 1. Obstructing 1 cm RIGHT UPJ stone. Mild hydronephrosis of the RIGHT kidney with moderate perinephric stranding. 2. Nonobstructing bilateral renal stones, preferentially involving LEFT kidney measuring approximately 3-4 mm in size. XR chest 1V portable No acute process. Medications Administered Heparin Sodium (Porcine) (Heparin Sod 5,000 Unit/0.5 Ml Vial) 5,000 units SQ Q12 YORDY Stop: 02/10/24 20:59 Last Admin: 01/12/24 08:31 Dose: 5,000 units Documented By: Admin: 01/11/24 20:32 Dose: 5,000 units Documented By: TOI Hydromorphone HCl (Hydromorphone Inj 0.5 Mg/0.5 Ml Syr) 0.25 mg IV Q3H PRN PRN Reason: Mod-Sev Pain (Scale 4-10) Stop: 01/25/24 02:00 Last Admin: 01/12/24 08:31 Dose: 0.25 mg Documented By: Admin: 01/12/24 00:43 Dose: 0.25 mg Documented By: Admin: 01/11/24 19:03 Dose: 0.25 mg Documented By: Admin: 01/11/24 15:57 Dose: 0.25 mg Documented By: Admin: 01/11/24 12:56 Dose: 0.25 mg Documented By: JAN Lactated Ringer's (Lr) 1,000 mls @ 125 mls/hr IV .Q8H [facility] Stop: 02/10/24 01:44 Last Admin: 01/12/24 11:15 Dose: 125 mls/hr Documented By: Infusion: 01/12/24 11:15 Dose: Infused Documented By: Admin: 01/12/24 08:30 Dose: Not Given Documented By: Admin: 01/12/24 05:48 Dose: 125 mls/hr Documented By: Infusion: 01/12/24 04:31 Dose: Infused Documented By: Admin: 01/11/24 20:31 Dose: 125 mls/hr Documented By: Infusion: 01/11/24 20:22 Dose: Infused Documented By: Admin: 01/11/24 12:45 Dose: 125 mls/hr Documented By: Infusion: 01/11/24 12:45 Dose: Infused Documented By: Admin: 01/11/24 05:48 Dose: 125 mls/hr Documented By: Infusion: 01/11/24 05:48 Dose: Infused Documented By: Admin: 01/11/24 02:24 Dose: 125 mls/hr Documented By: CRIS Acetaminophen (Ofirmev) 1,000 mg in 100 mls @ 400 mls/hr IV Q8H PRN PRN Reason: Pain or Fever Stop: 01/14/24 06:59 Last Infusion: 01/12/24 07:08 Dose: Infused Documented By: Admin: 01/12/24 06:40 Dose: 400 mls/hr Documented By: Infusion: 01/11/24 20:53 Dose: Infused Documented By: Admin: 01/11/24 20:31 Dose: 400 mls/hr Documented By: Infusion: 01/11/24 12:46 Dose: Infused Documented By: Admin: 01/11/24 12:21 Dose: 400 mls/hr Documented By: Infusion: 01/11/24 06:00 Dose: Infused Documented By: Admin: 06/16/24 05:47 Dose: 400 mls/hr Documented By: GAVIOTA Ceftriaxone Sodium (Rocephin) 2,000 mg in 50 mls @ 100 mls/hr IV Q24H [facility] Stop: 01/21/24 20:59 Last Infusion: 01/11/24 21:01 Dose: Infused Documented By: Admin: 01/11/24 20:32 Dose: 100 mls/hr Documented By: TOI Pantoprazole Sodium 40 mg/ (Syringe) 10 mls @ 5 mls/min IV DAILY@1100 [facility] Stop: 02/10/24 10:59 Last Admin: 01/12/24 11:15 Dose: 5 mls/min Documented By: Admin: 01/11/24 14:31 Dose: 5 mls/min Documented By: JAN Metoprolol Tartrate (Metoprolol Tartrate 50 Mg Tab) 50 mg PO BID [facility] Stop: 02/10/24 08:59 Last Admin: 01/12/24 08:31 Dose: 50 mg Documented By: Admin: 01/11/24 20:32 Dose: 50 mg Documented By: Admin: 01/11/24 12:23 Dose: 50 mg Documented By: JAN Phenazopyridine HCl (Phenazopyridine Hcl 200 Mg Tab) 200 mg PO TID [facility] Stop: 02/11/24 08:59 Last Admin: 01/12/24 08:31 Dose: 200 mg Documented By: DAVE Phenol (Chloraseptic (Phenol) 1.4% Soln 180 Ml Btl) 2 sprays MT Q4 PRN PRN Reason: Sore Throat Stop: 02/10/24 08:02 Last Admin: 01/11/24 12:47 Dose: 2 sprays Documented By: JAN
[2024-01-12] MEDS: PHENAZOPYRIDINE HCL 200 MG TAB PO SCH (08:31)
--- NOTE | 2024-01-12 10:44 | Urology Progress Note ---
Date of Service January 12, 2024 Assessment & Plan (1) Obstruction of right ureteropelvic junction (UPJ) due to stone: (2) UTI (urinary tract infection): Plan: - Pt POD#1 s/p cystoscopy and right ureteral stent placement - Afebrile, lab work reviewed - creatinine (1.49) and WBC (13.46) downtrending - Urine culture showing Gram negative bacilli - Blood cultures no growth x 24 hours - Continue broad-spectrum antibiotics and narrow per sensitivity data when avail able - Tolerating right ureteral stent with mild bother - He is voiding after catheter removal - Discussed reimaging of ureteral stent as needed; distal curl of ureteral stent can be repositioned if indicated - Recommend d/c with course of PO antibiotics, Tamsulosin, and prn pain medication for stent management - Expected clinical course reviewed, all questions answered - Will arrange outpatient follow-up with our service to discuss definitive stone management - will follow Admission and Anticipated Discharge Date Admission Date: January 11, 2024 Subjective Patient seen and examined at bedside this morning, present Notes some right flank discomfort His Monreal catheter was removed this morning per order He has voided since removal Notes some urgency and dribbling Denies nausea/vomiting No fever/chills Review of Systems Constitutional: as per Subjective / HPI Genitourinary: + as per Subjective / HPI Physical Exam Constitutional: + obese; no acute distress Respiratory: no respiratory distress and no labored breathing Gastrointestinal (Abdomen): Inspection/Auscultation: abdomen normal to inspection Musculoskeletal: Head/Neck/Chest: normocephalic Neurologic: moves all extremities and awake Psychiatric: Orientation: alert and oriented x 3 Results & Data Vital Signs (Past 12 Hours) Vital Signs Temp Pulse Pulse Resp BP Pulse Ox O2 Del Method 01/12/24 10:04 103 H 01/12/24 08:03 37.1 C 97 H 24 149/98 H 94 Room Air 01/12/24 03:27 36.9 C 105 H 18 115/76 93 Room Air PG Care Time/CCT Total # of Minutes Spent Total Time Spent with Patient: Total time spent is greater than 50% in coordination of care (as documented) at patient's floor/unit and/or counseling patient: Coding Level of Care Code 93513 SUB INP/OBS CARE /25MIN Diagnoses Obstruction of right ureteropelvic junction (UPJ) due to stone N20.1 UTI (urinary tract infection) N39.0
[2024-01-12] MEDS: POLYETHYLENE (MIRALAX) 17 GM PACK PO SCH (13:03)
[2024-01-12] MEDS: BUTALBITAL/ACETAMIN/CAFFEINE TAB PO STA (15:32)
--- NOTE | 2024-01-12 16:23 | XRay Report ---
KUB HISTORY: Status post placement of a right ureteral stent right ureteral stent COMPARISON: CT 01/10/2024 FINDINGS: Nonobstructive bowel gas pattern. A right ureteral stent is in place. The proximal portion appears to be in satisfactory positioning. The distal portion appears to extend into the urethra. Lef t nephrolithiasis redemonstrated. No definite ureteral calculi identified. Vascular calcifications o f the pelvis. No pneumoperitoneum or pneumatosis. No fracture. IMPRESSION: 1. Distal portion of the right ureteral stent appears to extend into the urethra. 2. No ureteral calculi identified. 3. Left nephrolithiasis redemonstrated. ACT 112: Negative or not required by law. The above report was generated using voice recognition software. It may contain grammatical, syntax o r spelling errors. Electronically signed by: Mikey Bahena M.D. 01/12/2024 4:21 PM
--- NOTE | 2024-01-12 18:18 | Billing Data ---
Date of Service January 12, 2024 Coding Level of Care Code 71128 SUB INP/OBS CARE MIN
[2024-01-12] MEDS: oxyBUTYnin chloride 5 MG TAB PO SCH (20:53)
[2024-01-12] MEDS: TAMSULOSIN HCL 0.4 MG CAP PO SCH (20:54)
[2024-01-13] MEDS: BUTALBITAL/ACETAMIN/CAFFEINE TAB PO PRN (03:26)
--- NOTE | 2024-01-13 06:26 | Communication Note ---
Date of Service: January 13, 2024 Patient had recent cystoscopy on 01/11/2024 with right ureteral stent placement. KUB was ordered the evening of 01/12/2024. This showed that the distal portion of the ureteral stent extends into the urethra. Due to KUB findings patient was made n.p.o. after midnight on 01/12/2024. Our dayshift urology team will evaluate patient's KUB and determine if the stent needs to be repositioned.
[2024-01-13 06:29] LABS: Basophils # (auto) 0.06 K/uL (0.00-0.20); Basophils % (auto) 0.6 %; Eosinophils # (auto) 0.14 K/uL (0.00-0.50); Eosinophils % (auto) 1.4 %; Hematocrit (blood only) 34.7 % (42.0-52.0); Hemoglobin 11.5 g/dl (14.0-18.0); Immature Granulocytes # (auto) 0.08 K/uL (0.01-0.20); Immature Granulocytes % (auto) 0.8 %; Lymphocytes # (auto) 1.66 K/uL (1.20-3.40); Lymphocytes % (auto) 16.3 %; Mean Corpuscular Hemoglobin 26.8 pg (25.0-34.0); Mean Corpuscular Hgb Conc 33.1 g/dL (32.0-36.0); Mean Corpuscular Volume 80.9 fL (80.0-100.0); Mean Platelet Volume 10.1 fL (9.4-12.4); Monocytes # (auto) 1.05 K/uL (0.11-0.59); Monocytes % (auto) 10.3 %; Neutrophils % (auto) 70.6 %; Platelet Count 244 K/uL (130-400); RDW Coefficient of Variation 14.4 % (11.5-14.5); RDW Standard Deviation 42.4 fL (36.4-46.3); Red Blood Count 4.29 M/uL (4.70-6.10); White Blood Count 10.19 K/ul (4.8-10.8)
[2024-01-13 06:37] LABS: Albumin Level 3.1 gm/dl (3.4-5.0); BUN Creatinine Ratio 13.1 (10-20); Calcium 8.5 mg/dl (8.6-10.3); Creatinine Clr Calc Pharmacy 95.5 ml/min; Est GFR (African American) 75.3 ml/min; Phosphorus 2.1 mg/dl (2.5-4.9); Potassium 3.4 mmol/L (3.5-5.1)
--- NOTE | 2024-01-13 07:14 | Hospitalist Progress Note ---
Date of Service January 13, 2024 Assessment & Plan (1) Hydronephrosis, right: Plan: Mr. Pan is a 48 year old male with a PMHx of HTN, HLD, lumbar radiculopathy s/p lumbar decompression, and severe HOMER with BIPAP, who is being evaluated for urinary frequency/burning, fevers, body aches, and diaphoresis. He was found to have urosepsis and hydronephrosis secondary to ureter obstruction. He is 1 day s/p right ureteral stent placement. Kidney stone -1 cm right UPJ obstructing stone/mild right hydronephrosis/sepsis due to UTI -Urology consulted, right ureteral stent placed 01/10 * Continue LR at 125 mls/h * Dilaudid 0.25 mg IV Q3H PRN for moderate to severe pain. Phenazopyridine 200 mg, PO, TID, PRN for moderate to severe urinary tract pain. Acetaminophen 1g IV Q8H PRN for mild pain or fever. * F/U outpatient for shock wave lithotripsy UTI /urosepsis - On admission: WBC, 20.6 (86% neutrophils); HR, 119. Met SIRS criteria - WBC trending downward. Temp WNL. Mildly tachycardic and hypertensive. - UA: Ur blood, 2+; Ur nitrite, pos; Ur LE, pos; Ur WBC, > 50; Ur Estevan, 4+ indicating UTI at very least - Urine culture positive for gram neg bacilli, sensitive to all antibiotics tested - Blood Cx and sensitivities, negative after 48 hrs * Continue ceftriaxone 2 g IV daily Hypertension -Hold losartan 50 mg, PO, BID due to ANA * Continue metoprolol tartrate 50 mg, BID this morning for BP control and increased HR * Lopressor 5 mg IV Q4H PRN for HR greater than 110 Acute kidney injury superimposed on CKD -Baseline 1.23 -Trending downward * Continue to trend Hypomagnesemia -Magnesium 1.6 on admission -s/p IV replacement * Continue to trend Hypokalemia -Potassium 3.3 on admission -s/p IV replacement * Continue to trend Severe obstructive sleep apnea -BiPAP FEN: Regular diet Code status: full code DVT ppx: Heparin (01/10) Hold home meds: losartan Consults: Urology Case management: Dispo: PCU-Telemetry (2) Obstruction of right ureteropelvic junction (UPJ) due to stone: (3) Sepsis due to urinary tract infection: Admission and Anticipated Discharge Date Admission Date: January 11, 2024 Subjective Pain control: Reports right sided abdominal pain, pain in groin, penile pain. He is also having dysuria and hematuria. He endorses tongue and throat pain, although better from yesterday. He is now NPO. Bowel/bladder: The patient had a bowel movement last night. Tolerating diet: Able to drink but not eat, as above. Nausea, vomiting: none Out of bed: Unable to ambulate yet, has been intermittently sleeping since the surgery Per patient, urology will be returning later today to adjust the stent at bedside. Review of Systems 2 Review of Systems: See HPI, otherwise negative Physical Exam 2 Physical Exam: Constitutional: Fatigued-appearing, no acute distress HEENT: NCAT, no conjunctival injection, no scleral icterus CV: Regular rate and rhythm, no murmur appreciated, extremities well-perfused, no LE edema Resp: CTABL, no wheezes/rales/rhonchi appreciated, no increased work of breathing GI: soft, nondistended, mildly tender to palpation of the right upper quadrant, BS normoactive. MSK: no gross deformities appreciated Skin: warm and diaphoretic, no rash appreciated Neuro: alert, oriented, no focal neurologic deficits appreciated Results & Data Results & Data Vital Signs (Past 12 Hours) Vital Signs Temp Pulse Pulse Resp BP Pulse Ox O2 Del Method 01/13/24 02:49 98.2 F 102 H 18 149/83 H 93 Room Air 01/12/24 22:21 99.0 F 94 H 18 140/86 91 Room Air 01/12/24 22:00 84 01/12/24 19:51 99.3 F 107 H 18 145/84 H 93 Room Air Laboratory Results 01/13/24 05:45 01/13/24 05:45 Diagnostic Findings KUB 1. Distal portion of the right ureteral stent appears to extend into the urethra. 2. No ureteral calculi identified. 3. Left nephrolithiasis redemonstrated. Medications Administered Acetaminophen/Butalbital/Caffeine (Butalbital/Acetamin/Caffeine Tab) 1 tab PO Q6H PRN PRN Reason: Headache Stop: 02/11/24 21:29 Last Admin: 01/13/24 03:26 Dose: 1 tab Documented By: TOI Heparin Sodium (Porcine) (Heparin Sod 5,000 Unit/0.5 Ml Vial) 5,000 units SQ Q12 YORDY Stop: 02/10/24 20:59 Last Admin: 01/12/24 20:53 Dose: 5,000 units Documented By: Admin: 01/12/24 08:31 Dose: 5,000 units Documented By: Admin: 01/11/24 20:32 Dose: 5,000 units Documented By: TOI Hydromorphone HCl (Hydromorphone Inj 0.5 Mg/0.5 Ml Syr) 0.25 mg IV Q3H PRN PRN Reason: Mod-Sev Pain (Scale 4-10) Stop: 01/25/24 02:00 Last Admin: 01/12/24 21:24 Dose: 0.25 mg Documented By: Admin: 01/12/24 17:02 Dose: 0.25 mg Documented By: Admin: 01/12/24 12:26 Dose: 0.25 mg Documented By: Admin: 01/12/24 08:31 Dose: 0.25 mg Documented By: Admin: 01/12/24 00:43 Dose: 0.25 mg Documented By: Admin: 01/11/24 19:03 Dose: 0.25 mg Documented By: Admin: 01/11/24 15:57 Dose: 0.25 mg Documented By: Admin: 01/11/24 12:56 Dose: 0.25 mg Documented By: JAN Lactated Ringer's (Lr) 1,000 mls @ 125 mls/hr IV .Q8H [facility] Stop: 02/10/24 01:44 Last Admin: 01/13/24 03:26 Dose: 125 mls/hr Documented By: Infusion: 01/12/24 19:26 Dose: Infused Documented By: Admin: 01/12/24 11:15 Dose: 125 mls/hr Documented By: Infusion: 01/12/24 11:15 Dose: Infused Documented By: Admin: 01/12/24 08:30 Dose: Not Given Documented By: Admin: 01/12/24 05:48 Dose: 125 mls/hr Documented By: Infusion: 01/12/24 04:31 Dose: Infused Documented By: Admin: 01/11/24 20:31 Dose: 125 mls/hr Documented By: Infusion: 01/11/24 20:22 Dose: Infused Documented By: Admin: 01/11/24 12:45 Dose: 125 mls/hr Documented By: Infusion: 01/11/24 12:45 Dose: Infused Documented By: Admin: 01/11/24 05:48 Dose: 125 mls/hr Documented By: Infusion: 01/11/24 05:48 Dose: Infused Documented By: Admin: 01/11/24 02:24 Dose: 125 mls/hr Documented By: CRIS Acetaminophen (Ofirmev) 1,000 mg in 100 mls @ 400 mls/hr IV Q8H PRN PRN Reason: Pain or Fever Stop: 01/14/24 06:59 Last Infusion: 01/12/24 21:28 Dose: Infused Documented By: Admin: 01/12/24 20:54 Dose: 400 mls/hr Documented By: Infusion: 01/12/24 07:08 Dose: Infused Documented By: Admin: 01/12/24 06:40 Dose: 400 mls/hr Documented By: Infusion: 01/11/24 20:53 Dose: Infused Documented By: Admin: 01/11/24 20:31 Dose: 400 mls/hr Documented By: Infusion: 01/11/24 12:46 Dose: Infused Documented By: Admin: 01/11/24 12:21 Dose: 400 mls/hr Documented By: Infusion: 01/11/24 06:00 Dose: Infused Documented By: Admin: 01/11/24 05:47 Dose: 400 mls/hr Documented By: GAVIOTA Ceftriaxone Sodium (Rocephin) 2,000 mg in 50 mls @ 100 mls/hr IV Q24H [facility] Stop: 01/21/24 20:59 Last Infusion: 01/12/24 21:28 Dose: Infused Documented By: Admin: 01/12/24 20:52 Dose: 100 mls/hr Documented By: Infusion: 01/11/24 21:01 Dose: Infused Documented By: Admin: 01/11/24 20:32 Dose: 100 mls/hr Documented By: TOI Pantoprazole Sodium 40 mg/ (Syringe) 10 mls @ 5 mls/min IV DAILY@1100 [facility] Stop: 02/10/24 10:59 Last Admin: 01/12/24 11:15 Dose: 5 mls/min Documented By: Admin: 01/11/24 14:31 Dose: 5 mls/min Documented By: JAN Metoprolol Tartrate (Metoprolol Tartrate 50 Mg Tab) 50 mg PO BID [facility] Stop: 02/10/24 08:59 Last Admin: 01/12/24 20:53 Dose: 50 mg Documented By: Admin: 01/12/24 08:31 Dose: 50 mg Documented By: Admin: 01/11/24 20:32 Dose: 50 mg Documented By: Admin: 01/11/24 12:23 Dose: 50 mg Documented By: JAN Oxybutynin Chloride (Oxybutynin Chloride 5 Mg Tab) 5 mg PO BID [facility] Stop: 02/11/24 20:59 Last Admin: 01/12/24 20:53 Dose: 5 mg Documented By: TOI Phenazopyridine HCl (Phenazopyridine Hcl 200 Mg Tab) 200 mg PO TID [facility] Stop: 02/11/24 08:59 Last Admin: 01/12/24 20:53 Dose: 200 mg Documented By: Admin: 01/12/24 13:03 Dose: 200 mg Documented By: Admin: 01/12/24 08:31 Dose: 200 mg Documented By: PK Phenol (Chloraseptic (Phenol) 1.4% Soln 180 Ml Btl) 2 sprays MT Q4 PRN PRN Reason: Sore Throat Stop: 02/10/24 08:02 Last Admin: 01/11/24 12:47 Dose: 2 sprays Documented By: JAN Polyethylene Glycol (Polyethylene (Miralax) 17 Gm Pack) 17 gm PO BID [facility] Stop: 02/11/24 12:59 Last Admin: 01/12/24 20:54 Dose: 17 gm Documented By: Admin: 01/12/24 13:03 Dose: 17 gm Documented By: PK Tamsulosin HCl (Tamsulosin Hcl 0.4 Mg Cap) 0.4 mg PO HS [facility] Stop: 02/11/24 20:59 Last Admin: 01/12/24 20:54 Dose: 0.4 mg Documented By: TOI
--- NOTE | 2024-01-13 07:58 | Urology Progress Note ---
Date of Service January 13, 2024 Assessment & Plan (1) Sepsis due to urinary tract infection: (2) Obstruction of right ureteropelvic junction (UPJ) due to stone: (3) Hydronephrosis, right: Plan: 48 yo/M admitted for UTI/sepsis secondary to right UPJ stone POD#2 s/p cystoscopy and right ureteral stent placement Pt afebrile, labs reviewed - creatinine 1.3, WBC 10.19, Hgb 11.5 Urine culture prelim with E. coli Blood cultures no growth x 48 hours Subjectively doing well Reports some discomfort from ureteral stent and urinary incontinence KUB reviewed and discussed with patient and , the distal end of stent is within the urethra Discussed options for management of stent Discussed bedside cystoscopy to reposition the distal end of stent He is agreeable to this plan Okay for diet today, will plan for bedside cystoscopy later today with Dr. Lema to reposition stent Continue antibiotics and narrow per sensitivity data Continue supportive care and prn analgesia See attending physician note regarding procedure and further details Admission and Anticipated Discharge Date Admission Date: January 11, 2024 Supervising Physician Co-Signing Physician Notes Malpositioned stent Bedside cystoscopy performed after sterile prep with Betadine Cystoscope inserted per urethra and full inspection revealed a healthy-appearing urethra with the distal aspect of the stent visualized within the bulb I was able to grasp this with a flexible grasper and then advanced the scope into the bladder before depositing the stent in this location A good curl was visualized at that time and I removed the scope and concluded the procedure He tolerated this procedure well. Subjective Patient seen and examined at bedside He is resting in bed, at bedside Reports some right flank discomfort Continues to have urinary incontinence, urgency No nausea, vomiting, fever or chills Review of Systems Constitutional: as per Subjective / HPI Gastrointestinal: as per Subjective / HPI Genitourinary: + as per Subjective / HPI Physical Exam Constitutional: + obese; no acute distress Respiratory: no respiratory distress and no labored breathing Gastrointestinal (Abdomen): Inspection/Auscultation: abdomen normal to inspection Musculoskeletal: Head/Neck/Chest: normocephalic Neurologic: moves all extremities and awake Psychiatric: Orientation: alert and oriented x 3 Results & Data Vital Signs (Past 12 Hours) Vital Signs Temp Pulse Pulse Resp BP Pulse Ox O2 Del Method 01/13/24 02:49 36.8 C 102 H 18 149/83 H 93 Room Air 01/12/24 22:21 37.2 C 94 H 18 140/86 91 Room Air 01/12/24 22:00 84 PG Care Time/CCT Total # of Minutes Spent Total Time Spent with Patient: Total time spent is greater than 50% in coordination of care (as documented) at patient's floor/unit and/or counseling patient: Coding Level of Care Code 61846 SUB INP/OBS CARE 3/50MIN Diagnoses Sepsis due to urinary tract infection A41.9; N39.0 Obstruction of right ureteropelvic junction (UPJ) due to stone N20.1 Hydronephrosis, right N13.30
--- NOTE | 2024-01-13 17:18 | Discharge Summary ---
Date of Service January 13, 2024 Admission HPI Per Admitting Provider The patient is a 48-year-old male with past medical history including anxiety, tobacco chewing, lumbar disc herniation with radiculopathy status post surgery on 12/10/2023, pansensitive E. coli UTI on 12/23/2023, severe HOMER on BiPAP , obesity, nocturnal hypoxia and hypertension. The patient presents to the emergency department as noted above. Workup in the emergency department included a CT scan abdomen and pelvis which showed a 1 cm right UPJ obstructing stone with mild right hydronephrosis. Patient was seen by urology in the ED, who plans to take the patient to the OR as soon as a spot opens, due to the l max infected stone. Admission Exam Per Admitting Provider The patient is awake, alert and oriented 3, well developed and well nourished, normocephalic and atraumatic, lying in bed and in no acute distress. HEENT--PERRL, EOMI, mucous membranes and oropharynx mildly dry. Neck--supple. No JVD. No bruits. Thyroid normal, trachea midline, no adenopathy. Heart--normal S1 and S2. No murmurs, rubs or gallops. Lungs--clear bilaterally, no respiratory distress, no accessory muscle use. Abdomen--normal bowel sounds and soft. Nontender. Nondistended. Extremities--no cyanosis or clubbing. No edema. Dermatologic--normal skin turgor, normal color, no abnormal lymph nodes, no rash. Neurologic--cranial nerves II through XII grossly intact. Rheumatologic--normal range of motion. Psychiatric--normal affect. Principal Diagnosis Obstruction of right ureteropelvic junction (UPJ) due to stone Hydronephrosis, right Sepsis due to urinary tract infection Discharge Exam Constitutional: Fatigued-appearing, no acute distress HEENT: NCAT, no conjunctival injection, no scleral icterus CV: Regular rate and rhythm, no murmur appreciated, extremities well-perfused, no LE edema Resp: CTABL, no wheezes/rales/rhonchi appreciated, no increased work of breathing GI: soft, nondistended, mildly tender to palpation of the right upper quadrant, BS normoactive. MSK: no gross deformities appreciated Skin: warm and diaphoretic, no rash appreciated Neuro: alert, oriented, no focal neurologic deficits appreciated Discharge Data Allergies Allergy/AdvReac Type Severity Reaction Status Date / Time No Known Allergies Allergy Verified 12/29/23 15:24 Consultations 01/11/24 01:25 ED Decision to Admit Stat 01/11/24 02:08 Consult Urology Routine Procedures Performed Operation Date: 01/11/24 02:50 Actual Procedures p Ureteral Stent Insertion/Removal(Right) - Rashaad Almeida MD Ordered Studies 01/10/24 22:25 CT abd pelvis wo con Stat 01/11/24 03:51 FL retrograde includes kub Routine Hospital Course (1) Hydronephrosis, right: Mr. Pan is a 48 year old male with a PMHx of HTN, HLD, lumbar radiculopathy s/p lumbar decompression, and severe HOMER with BIPAP, who is being evaluated for urinary frequency/burning, fevers, body aches, and diaphoresis. He was found to have urosepsis and hydronephrosis secondary to ureter obstruction. He is 1 day s/p right ureteral stent placement. Kidney stone -1 cm right UPJ obstructing stone/mild right hydronephrosis/sepsis due to UTI -Urology consulted, right ureteral stent placed 01/10 * Continue LR at 125 mls/h * Dilaudid 0.25 mg IV Q3H PRN for moderate to severe pain. Phenazopyridine 200 mg, PO, TID, PRN for moderate to severe urinary tract pain. Acetaminophen 1g IV Q8H PRN for mild pain or fever. * F/U outpatient for shock wave lithotripsy UTI /urosepsis - On admission: WBC, 20.6 (86% neutrophils); HR, 119. Met SIRS criteria - WBC trending downward. Temp WNL. Mildly tachycardic and hypertensive. - UA: Ur blood, 2+; Ur nitrite, pos; Ur LE, pos; Ur WBC, > 50; Ur Estevan, 4+ indicating UTI at very least - Urine culture positive for gram neg bacilli, sensitive to all antibiotics tested - Blood Cx and sensitivities, negative after 48 hrs * Discontinue ceftriaxone 2 g IV and start PO for discharge Hypertension -Hold losartan 50 mg, PO, BID due to ANA * Continue metoprolol tartrate 50 mg, BID this morning for BP control and increased HR * Lopressor 5 mg IV Q4H PRN for HR greater than 110 Acute kidney injury superimposed on CKD - resolved -Baseline 1.23 -Trending downward Hypomagnesemia - resolved -Magnesium 1.6 on admission -s/p IV replacement Hypokalemia - resolving -Potassium 3.3 on admission -s/p IV replacement Severe obstructive sleep apnea - chronic -BiPAP * Follow up with sleep medicine outpatient FEN: Regular diet Code status: full code DVT ppx: Heparin (01/10) Hold home meds: losartan Consults: Urology Case management: Dispo: PCU-Telemetry (2) Obstruction of right ureteropelvic junction (UPJ) due to stone: (3) Sepsis due to urinary tract infection: Total Time Total Time Spent Total Time Spent (In Minutes): >30 Discharge Plan Discharge Items Patient Disposition: Home - Self-Care Reason For Visit: SEPSIS DUE TO UTI, R UPJ INFECTED STONE, R HYDRO Discharge Diagnosis: infected kidney stone / sepsis from infection now resolved Activity: Resume your previous activity Non-emergency contact: Primary Care Provider and Urologist Call non-emergency contact if: you have any medication questions Follow-up/Referrals: Smooth Allen CRNP [Primary Care Provider] - Diet: Regular Addtl Attending Provider Instructions: kidney stone/infection -while you were quite sick with the infection, fortunately getting the urinary tract obstruction alleviated with the stent, as well as time for the antibiotics to work, has improved things a ton; definitely safe to get you home - fortunately the bacteria is a really easy to kill strain of E Coli - we'll treat for 7 more days (10 days total) With Augmentin (amoxicillin/clavulanate)since the IV antibiotics (ceftriaxone) that you got tonight last for 24 hours, you actually will not need to take your first dose of Augmentin until tomorrow night. - We will have you continue the Flomax (tamsulosin) to help reduce urinary tract spasms - while hopefully you will need any pain medicine stronger than Tylenol, I will send a prescription for oxycodone to the pharmacyobviously reserve this for very severe pain/breakthrough pain, or especially pain that is keeping you from being able to sleep (since the main side effect to this type of medication is sleepiness/grogginess; obviously it can also cause constipation) - the urology office will be contacting you as far as taking care of the stone and removing the stentusually they are extremely good at closing the loop on this, but as a safety net, if you have not heard from them by afternoon, please call [phone] to check the status of your follow-up appointments. Reclaiming your health: - As we discussed, fortunately you have not suffered any "irreversible consequences" from your health, but we definitely want to have you start to take some steps to reclaim your health so that you can be healthier at 51 then you are at 48. Like we discussed, the main goal of this really has nothing to do with the scale, but more avoiding your family history of heart attacks and strokes. It would be reasonable to guess (obviously arbitrarily) that on your current path you could be working towards your first heart attack in the next 5 years, possibly 10 years at the most) - definitely do not make it more complicated than it needs to bereally what I would look at is some sort of light regular exercise (as you recover from the back surgery, working your way up to 20-30 minutes of walking daily, or something similar) and getting away from "[place] eating habits"i.e. moving away from the meat and potatoes type of a diet to more of a Mediterranean diet (i.e. predominantly fruits and vegetables, lean sources of protein such as chicken without the skin, pork without the fat, fish, etc.) and minimizing the bread/starch/sugar type carbohydrates (I am fully aware [place] local [place] myself that talking about eliminating simple carbohydrates might as well be blasphemy!) - As we discussed, I would not really worry about the scalemost of the time because eating healthier and exercising more regularly produces an overall "net loss" of calories, it is hard to get healthier without accidentally losing weight. At the same time, remember the 1 patient I used to have ages ago who did everything right, got her body/metabolism much healthier, and surprisingly did not lose an ounce. - Especially as it relates to her daughter, a reasonable way to look at weight loss and weight gain is looking at base numbers and making it more mathematical: There are roughly 3500 kaden in a pound, you can take your weight in pounds multiplied by 3500 to essentially decide how big your "savings account of calories" is, you can get on MD Calc and calculate your basal energy expenditure to see roughly how many calories you burn and an average day without exercise, and then essentially try to "spend more than you earn"like we discussed this helps make goals and targets realistic, and also helps with value judgments on whether or not something would be worth eating or "too much exercise to make up for". - Strive for perfection (i.e. strive for eating perfectly every day and exercising 20-30 minutes every single day) but then in the next breath give yourself the Pinky to know that you will not be perfect. Pending Studies at Discharge: No Stand-Alone Forms: [facility], Smoking Cessation Medications and DC Order Prescriptions: New tamsulosin 0.4 mg Capsule 0.4 mg PO HS Qty: 30 0RF amoxicillin-pot clavulanate 875-125 mg tablet 1 tab PO BID Qty: 14 0RF oxycodone 5 mg tablet 5 mg PO TID PRN (Reason: pain, severe) Qty: 10 0RF Continued (DME) BiPap Machine Misc See Rx Instructions .Route Qty: 1 0RF Rx Instructions: Settings- losartan 100 mg tablet 50 mg PO BID Qty: 90 2RF cyclobenzaprine 10 mg tablet 10 mg PO TID PRN (Reason: muscle spasm) Qty: 15 0RF acetaminophen [Tylenol Extra Strength] 500 mg Tablet 1,000 mg PO Q6H PRN (Reason: Pain) naproxen sodium [Aleve] 220 mg Tablet 660 mg PO .Q4-6HRS PRN (Reason: Pain) metoprolol tartrate 50 mg tablet 50 mg PO BID tramadol 50 mg tablet 50 mg PO Q6 PRN (Reason: Pain) oxycodone 5 mg tablet 5 mg PO Q6 PRN (Reason: Pain) Discharge Orders: Discharge Order (Routine); Ordered 01/13/24 Ordered By: Hal Lockwood Admission Data Admit Date/Time: 01/11/24 02:10 Attending Provider: Hal Lockwood Admit Provider: Shahzad Metzger Primary Care Provider: mSooth Allen Other Providers: Shahzad Metzger; Rashaad Almeida Other Interventions: Discharge Summary Assessment (RN) Last Done: 01/13/24 17:35 Supervising Physician Co-Signing Physician Notes I personally examined the patient and verified all ascencio points of history and exam, discussed case, and agree with decision making with Jania Dykes'Greer MS4 Feeling better and well enough to go homealmost immediately after stent was replaced. Extensive discussion with patient and on both treatment of current stone/sepsis situation, as well as lifestyle counseling as it relates to his morbid obesity with BMI of 46.2 and severe obstructive sleep apnea. Vitals noted, in general he is awake and alert pleasant but appears mildly ill. HEENT normocephalic atraumatic mucous membranes moist. Breathing unlabored no accessory muscle use good effort. Skin without rashes pallor or icterus. Neuro without focal deficits. Ureterolithiasis with superimposed urinary tract infection and subsequent s epsisnow temporized status post cystoscopy and stenting. Pansensitive E. coli. Safe/stable for home. Finish out 7 days of Augmentin (10 days of antibiotics total)obviously can extend course of antibiotics as an outpatient if necessary. Outpatient urology follow-up for definitive management of stone and stent removal. Morbid obesity with BMI 46.2/severe obstructive sleep apneathe segue into the conversation was his respiratory failure requiring intubation after anesthesiaand it led to a very good discussion about how to utilize therapeutic lifestyle change (healthy eating/exercise) to reclaim his health before he suffers any irreparable damage. He and are very receptive to this. Discussed ideal goal of 20-30 minutes of light cardiovascular exercise with a "perfect goal" of daily, and moving from a [place] type "meat and potatoes" eating habits to more of a Mediterranean (high in fruits and vegetables, lean sources of protein, low in simple starches/sugars, low in saturated fats/fatty sources of protein) DVT prophylaxisheparin subcu utilized while here otherwise as above
--- NOTE | 2024-01-13 20:27 | Billing Data ---
Date of Service January 13, 2024 Coding Level of Care Code 52824 INP/OBS DISCH >30 MIN
== END 2024-01-13 19:46 | disposition home or self-care (01) | DRG 854 ==
LOC: ED 21:01 → OR 01-11 03:12 → 4W 01-11 03:13 → SUATTDRO 01-11 03:13